=== PATIENT | female | born 1985 | race American Indian/Alaskan Native ===

== ENCOUNTER 2018-05-20 18:15 | Emergency (ER) | payer MEDICAID | END 2018-05-20 18:42 | disposition admitted as inpatient to this hospital (09) | LOC: ED 18:15 | DX: R10.9 Unspecified abdominal pain (principal); Z53.21 Procedure and treatment not carried out due to patient leaving prior to being seen by health care provider | CPT/HCPCS: 82962 ==

== ENCOUNTER 2018-05-20 18:24 | Day surgery (SDC) | payer MEDICAID ==
--- NOTE | 2018-05-20 18:49 | Anesthesia Day of Surgery ---
Anesthesia Day of Surgery - Day of Surgery Patient Examined: Yes Patient H&P Reviewed: Yes Patient is NPO: Yes
--- NOTE | 2018-05-20 18:50 | Anesthesia Consultation ---
Anesthesia Consult and Med Hx Date of service: 05/20/18 - Airway Anesthetic Teeth Evaluation: Good ROM Head & Neck: Adequate Mental/Hyoid Distance: Adequate Mallampati Class: Class III Intubation Access Assessment: Probably Good - Pre-Operative Health Status ASA Pre-Surgery Classification: ASA3, Emergency Proposed Anesthetic Plan: General - Pulmonary Hx Smoking: Yes (Hx) Hx Asthma: No COPD: No Hx Pneumonia: No Hx Sleep Apnea: No (Pt denies) - Cardiovascular System Hx Hypertension: Yes - Central Nervous System Hx Seizures: No Hx Psychiatric Problems: No - Gastrointestinal Hx Gastroesophageal Reflux Disease: Yes (Occasional) - Endocrine Hx Renal Disease: No Hx End Stage Renal Disease: No Hx Insulin Dependent Diabetes: Yes (FBS 235 @ 1845) Hx Hypothyroidism: No Hx Hyperthyroidism: No - Hematic Hx Anemia: No Hx Sickle Cell Disease: No - Other Systems Hx Alcohol Use: No Hx Obesity: Yes (morbid 5-11, 374#)
[2018-05-20] MEDS ORDERED: SUBLIMAZE IV PRN (18:51)
[2018-05-20] MEDS ORDERED: ZOFRAN IV PRN (18:51)
[2018-05-20] MEDS ORDERED: NACL 0.9% 1000 ML 1,000 ML ONE ×2 (18:55→19:43)
[2018-05-20] MEDS ORDERED: LACTATED RINGERS 1,000 ML IV SCH ×2 (19:00)
[2018-05-20] MEDS ORDERED: DIPRIVAN 10 MG/ML IV ONE ×2 (19:02→19:33)
[2018-05-20] MEDS ORDERED: DILAUDID ONE (19:02)
[2018-05-20] MEDS ORDERED: XYLOCAINE MPF 2% ONE (19:04)
--- NOTE | 2018-05-20 19:18 | Short Stay Summary ---
Short Stay Documentation Date of service: 05/20/18 - History Principal diagnosis: Incomplete H&P: obtained from office Past Medical History: diabetes, hypertension, other (morbid obesity) Past Surgical History: Social history: single - Allergies and Medications Current Medications: Allergies No Known Allergies Allergy (Verified 11/22/14 06:01) Home Medications Medication Instructions Recorded Confirmed Last Taken Type Ferrous Sulfate 1 tab PO DAILY 11/04/15 11/04/15 11/03/15 09:00 History 1 Insulin NPH Human Isophane 44 unit SQ QPM 11/04/15 11/04/15 11/03/15 21:00 History [Novolin N] 1 Insulin NPH Human Isophane 60 units SQ QAM 11/04/15 11/04/15 11/03/15 09:00 History [Novolin N] 1 Insulin Regular, Human Inj 30 units SQ QPM 11/04/15 11/04/15 11/03/15 21:00 History [NovoLIN R Inj] 1 Insulin Regular, Human Inj 32 units SQ QAM 11/04/15 11/04/15 11/03/15 09:00 History [NovoLIN R Inj] 1 Metformin HCl [Metformin] 1 tab PO BID 11/04/15 11/04/15 11/03/15 21:00 History Pnv with Ca,No.72/Iron/FA 1 tab PO DAILY 11/04/15 11/04/15 11/03/15 09:00 History [ Plus Tablet] 1 Ibuprofen [Motrin 800 MG tab] 800 mg PO Q6H PRN #30 tablet 11/07/15 Unknown Rx Insulin NPH, Human [NovoLIN N] 22 unit SUB-Q HS #7 units 11/07/15 Unknown Rx Insulin NPH, Human [NovoLIN N] 30 unit SUB-Q QAMDIAB #7 units 11/07/15 Unknown Rx Insulin Regular, Human [HumuLIN R] 15 units SUB-Q QHS #7 units 11/07/15 Unknown Rx Insulin Regular, Human [HumuLIN R] 16 units SUB-Q QAMDIAB #7 units 11/07/15 Unknown Rx oxyCODONE /ACETAMINOPHEN [Percocet 2 tab PO Q4H PRN #30 tablet 11/07/15 Unknown Rx 5/325 mg] Active Medications Fentanyl (Sublimaze) 50 mcg IV Q5MIN PRN PRN Reason: Pain , Severe (7-10) Lactated Ringer's (Lactated Ringers) 1,000 mls @ 100 mls/hr IV DIRECT NILAM Lactated Ringer's (Lactated Ringers) 1,000 mls @ 125 mls/hr IV DIRECT NILAM Ondansetron HCl (Zofran) 4 mg IV ONCE PRN PRN Reason: Nausea And Vomiting - Physical exam General appearance: mild distress HEENT: Atraumatic Lungs: Clear to auscultation, Normal air movement Breasts: deferred Heart: Regular rate, Normal S1, Normal S2 Gastrointestinal: normal, normoactive bowel sounds Female Genitourinary: normal Rectal Exam: deferred Extremities: No edema - Brief post op/procedure progress note Date of procedure: 05/20/18 Pre-op diagnosis: Missed Post-op diagnosis: same Procedure: Dilation and Evacuation Anesthesia: GETA Findings: enlarged uterus to 10 weeks with products of conception Surgeon: JAKE HARRISON Estimated blood loss: other (300) Pathology: list (products of conception) Specimen disposition: to lab Condition: stable - Hospital course Hospital course: unremarkable - Disposition Condition at discharge: Good Disposition: DC-01 TO HOME OR SELFCARE Short Stay Discharge Plan Activity: advance as tolerated Weight Bearing Status: Weight Bear as Tolerated Diet: regular Wound: open to air Follow up with: MARITA WAGONER MD [Primary Care Provider] - 7 Days JAKE HARRISON MD [Staff Physician] - 14 Days Prescriptions: Ibuprofen [Motrin 800 MG tab] 800 mg PO Q6H PRN #30 tablet PRN Reason: Pain, Mild (1-3) levoFLOXacin [Levaquin TAB] 500 mg PO QDAY #7 tablet oxyCODONE /ACETAMINOPHEN [Percocet 5/325 mg] 2 tab PO Q4H PRN #14 tablet PRN Reason: Pain, Moderate (4-6)
[2018-05-20] MEDS ORDERED: VERSED ONE (19:19)
[2018-05-20] MEDS ORDERED: ANCEF ONE (19:42)
[2018-05-20] MEDS ORDERED: ANCEF/STERILE WATER 2 GM/20 ML 2 GM/20 ML SYRINGE IV NR (20:00)
[2018-05-20] MEDS ORDERED: TORADOL ONE (20:04)
[2018-05-20] MEDS ORDERED: HumuLIN R IV ONE (20:23)
[2018-05-20 21:05] VITALS: BP 123/81
--- NOTE | 2018-05-21 07:44 | Post Anesthesia Evaluation ---
- Post Anesthesia Evaluation Patient Participated: Yes Airway Patent: Yes Stable Respiratory Function: Yes Nausea/Vomiting: No Temp > 96.8F: Yes Pain Manageable: Yes Adequeate Hydration: Yes Anesthesia Complications: No Block Receding Appropriately: Not Applicable Patient on Ventilator: No
--- NOTE | 2018-05-28 11:29 | Operative Report ---
Operative Report Operative Report: Preoperative diagnoses: Missed at 7 weeks Postoperative diagnosis: Same Procedure: D and E Surgeon: Jaja Thomas M.D. Anesthesia: MAC EBL: Minimal Urine output: 100 mL clear Complications: None Specimens: Products of conception Procedure: Patient was taken to the OR with IV running and in place. She will probably identified as herself. She was given adequate anesthesia. She was then placed in the dorsal lithotomy position and prepped and draped in normal sterile fashion. Attention was turned to the patient's vagina. Her bladder was then drained of approximately 100 mL of clear yellow urine. A bivalve speculum was placed the patient's vagina. Cervix was visualized and grasped with a single-tooth tenaculum. The cervix was then gently dilated up to approximately 29 mm. Following this, a #7 suction curette was inserted into the patient's uterus at the level of the fundus. It was then attached to the suction machine and the curettage was performed removing products of conception. At one point the curet was removed and a large banjo curet was introduced into the uterus to further retrieve any additional products. Following this the suction curette was reintroduced and more tissue was obtained. It was excellent hemostasis noted at the end of this portion of the procedure. At this point all instruments were removed from the patient's vagina. She was then awakened and taken to recovery in stable condition. She tolerated the procedure well
== END 2018-05-20 21:30 | disposition home or self-care (01) ==
LOC: OR 18:24
PROVIDERS: ATTEND Obstetrics & Gynecology
DX: O02.1 Missed abortion (principal); E11.9 Type 2 diabetes mellitus without complications; I10 Essential (primary) hypertension; E66.01 Morbid (severe) obesity due to excess calories; Z79.899 Other long term (current) drug therapy; Z79.4 Long term (current) use of insulin; Z87.891 Personal history of nicotine dependence; Z79.84 Long term (current) use of oral hypoglycemic drugs; Z68.43 Body mass index [BMI] 50.0-59.9, adult; Z98.891 History of uterine scar from previous surgery; Z83.3 Family history of diabetes mellitus
CPT/HCPCS: 59820; 88305; J0690; J1170; J1885; J2250; J2704; J7030; J1815

== ENCOUNTER 2018-07-09 16:43 | Inpatient (IN) | payer MEDICAID ==
[2018-07-09] MEDS ORDERED: PROVENTIL IH ONE (17:02)
[2018-07-09] MEDS ORDERED: ATROVENT IH ONE (17:02)
--- NOTE | 2018-07-09 17:02 | Emergency Department Report ---
Blank Doc - Documentation Documentation: This is a 32-year-old female that presents with SOB. Denies any CP. Stated has a dry cough. This initial assessment/diagnostic orders/clinical plan/treatment(s) is/are subject to change based on patient's health status, clinical progression and re- assessment by fellow clinical providers in the ED. Further treatment and workup at subsequent clinical providers discretion. Patient/guardians urged not to elope from the ED as their condition may be serious if not clinically assessed and managed. Initial orders include: 1- Patient sent to [facility] for further evaluation and treatment 2- CXR 3- breathing treatment/steroids
[2018-07-09] MEDS ORDERED: NACL 0.9% 1000 ML IV ONE (17:25)
[2018-07-09] MEDS ORDERED: NORMODYNE IV ONE (17:25)
[2018-07-09 18:21] LABS: Basophils # (Auto) 0.1 K/mm3 (0.0-0.1); Basophils % (Auto) 0.7 % (0.0-1.8); Eosinophils # (Auto) 0.3 K/mm3 (0.0-0.4); Eosinophils % (Auto) 3.8 % (0.0-4.3); Hematocrit 38.6 % (30.3-42.9); Hemoglobin 12.6 gm/dl (10.1-14.3); Lymphocytes # (Auto) 2.6 K/mm3 (1.2-5.4); Lymphocytes % (Auto) 34.2 % (13.4-35.0); Mean Corpuscular HGB Conc 33 % (30-34); Mean Corpuscular Volume 84 fl (79-97); Monocytes # (Auto) 0.4 K/mm3 (0.0-0.8); Monocytes % (Auto) 5.4 % (0.0-7.3); Platelet Count 268 K/mm3 (140-440); Red Blood Count 4.61 M/mm3 (3.65-5.03); Red Cell Distribution Width 14.5 % (13.2-15.2)
[2018-07-09] MEDS: ZITHROMAX 500 MG in NACL 0.9% 250ML 250 ML IV SCH (18:30)
[2018-07-09 18:41] LABS: Alanine Aminotransferase 10 units/L (7-56); Albumin 3.6 g/dL (3.9-5); BUN/Creatinine Ratio 11; Blood Urea Nitrogen 8 mg/dL (7-17); Hemolysis Index 3
[2018-07-09] MEDS ORDERED: ZOFRAN IV ONE (18:54)
[2018-07-09] MEDS ORDERED: ZOFRAN ONE (18:54)
[2018-07-09] MEDS ORDERED: NACL 0.9% 1000 ML 1,000 ML IV ONE (19:28)
--- NOTE | 2018-07-09 19:31 | XRay Report ---
PROCEDURE: XR CHEST 1V AP TECHNIQUE: Chest radiograph , single frontal view. HISTORY: cough wheeze COMPARISONS: None . FINDINGS: Heart: Normal. Mediastinum/Vessels: Normal. Lungs/Pleural space: Normal. Bony thorax: No acute osseous abnormality. Life support devices: None. IMPRESSION: No acute cardiopulmonary abnormality. This document is electronically signed by Smita Valladares MD., July 09 2018 07:29:11 PM ET
[2018-07-09] MEDS ORDERED: HumuLIN R IV ONE (19:36)
--- NOTE | 2018-07-09 19:39 | Emergency Department Report ---
<ELISEO LOPEZ - Last Filed: 07/09/18 19:52> ED Shortness of Breath HPI - General Chief Complaint: Dyspnea/Respdistress Stated Complaint: SERINA/WHEEZING Time Seen by Provider: 07/09/18 17:00 Source: patient Mode of arrival: Ambulatory Limitations: No Limitations - History of Present Illness Initial Comments: Patient is a 32-year-old female with past medical history of diabetes and hypertension who is presenting with cough congestion and wheeze for the last 2-3 days. Patient states she has no history of asthma but has asthma and her family. Patient states she has had a cough productive of clear yellow sputum. Patient denies any fever nausea vomiting or diarrhea. Patient's has no history of smoking. - Related Data Home Medications Medication Instructions Recorded Confirmed Last Taken Ferrous Sulfate 1 tab PO DAILY 11/04/15 11/04/15 11/03/15 09:00 1 Insulin NPH Human Isophane 44 unit SQ QPM 11/04/15 11/04/15 11/03/15 21:00 [Novolin N] 1 Insulin NPH Human Isophane 60 units SQ QAM 11/04/15 11/04/15 11/03/15 09:00 [Novolin N] 1 Insulin Regular, Human Inj 30 units SQ QPM 11/04/15 11/04/15 11/03/15 21:00 [NovoLIN R Inj] 1 Insulin Regular, Human Inj 32 units SQ QAM 11/04/15 11/04/15 11/03/15 09:00 [NovoLIN R Inj] 1 Metformin HCl [Metformin] 1 tab PO BID 11/04/15 11/04/15 11/03/15 21:00 Pnv with Ca,No.72/Iron/FA 1 tab PO DAILY 11/04/15 11/04/15 11/03/15 09:00 [ Plus Tablet] 1 Previous Rx's Medication Instructions Recorded Last Taken Type Insulin NPH, Human [NovoLIN N] 22 unit SUB-Q HS #7 units 11/07/15 Unknown Rx Insulin NPH, Human [NovoLIN N] 30 unit SUB-Q QAMDIAB #7 units 11/07/15 Unknown Rx Insulin Regular, Human [HumuLIN R] 15 units SUB-Q QHS #7 units 11/07/15 Unknown Rx Insulin Regular, Human [HumuLIN R] 16 units SUB-Q QAMDIAB #7 units 11/07/15 Unknown Rx Ibuprofen [Motrin 800 MG tab] 800 mg PO Q6H PRN #30 tablet 05/20/18 Unknown Rx levoFLOXacin [Levaquin TAB] 500 mg PO QDAY #7 tablet 05/20/18 Unknown Rx oxyCODONE /ACETAMINOPHEN [Percocet 2 tab PO Q4H PRN #14 tablet 05/20/18 Unknown Rx 5/325 mg] Allergies Allergy/AdvReac Type Severity Reaction Status Date / Time No Known Allergies Allergy Verified 11/22/14 06:01 ED Review of Systems Comment: All other systems reviewed and negative ED Past Medical Hx - Past Medical History Previous Medical History?: Yes Hx Hypertension: Yes Hx Congestive Heart Failure: No Hx Diabetes: Yes (Type 2) Hx Deep Vein Thrombosis: No Hx Renal Disease: No Hx Sickle Cell Disease: No Hx Seizures: No Hx Asthma: No Hx COPD: No Hx HIV: No - Surgical History Past Surgical History?: No - Social History Smoking Status: Never Smoker Substance Use Type: None - Medications Home Medications: Home Medications Medication Instructions Recorded Confirmed Last Taken Type Ferrous Sulfate 1 tab PO DAILY 11/04/15 11/04/15 11/03/15 09:00 History 1 Insulin NPH Human Isophane 44 unit SQ QPM 11/04/15 11/04/15 11/03/15 21:00 History [Novolin N] 1 Insulin NPH Human Isophane 60 units SQ QAM 11/04/15 11/04/15 11/03/15 09:00 History [Novolin N] 1 Insulin Regular, Human Inj 30 units SQ QPM 11/04/15 11/04/15 11/03/15 21:00 History [NovoLIN R Inj] 1 Insulin Regular, Human Inj 32 units SQ QAM 11/04/15 11/04/15 11/03/15 09:00 History [NovoLIN R Inj] 1 Metformin HCl [Metformin] 1 tab PO BID 11/04/15 11/04/15 11/03/15 21:00 History Pnv with Ca,No.72/Iron/FA 1 tab PO DAILY 11/04/15 11/04/15 11/03/15 09:00 History [ Plus Tablet] 1 Insulin NPH, Human [NovoLIN N] 22 unit SUB-Q HS #7 units 11/07/15 Unknown Rx Insulin NPH, Human [NovoLIN N] 30 unit SUB-Q QAMDIAB #7 units 11/07/15 Unknown Rx Insulin Regular, Human [HumuLIN R] 15 units SUB-Q QHS #7 units 11/07/15 Unknown Rx Insulin Regular, Human [HumuLIN R] 16 units SUB-Q QAMDIAB #7 units 11/07/15 Unknown Rx Ibuprofen [Motrin 800 MG tab] 800 mg PO Q6H PRN #30 tablet 05/20/18 Unknown Rx levoFLOXacin [Levaquin TAB] 500 mg PO QDAY #7 tablet 05/20/18 Unknown Rx oxyCODONE /ACETAMINOPHEN [Percocet 2 tab PO Q4H PRN #14 tablet 05/20/18 Unknown Rx 5/325 mg] ED Physical Exam - General Limitations: No Limitations General appearance: alert, in no apparent distress - Head Head exam: Present: atraumatic, normocephalic - Eye Eye exam: Present: normal appearance, PERRL, EOMI - ENT ENT exam: Present: mucous membranes moist - Neck Neck exam: Present: normal inspection - Respiratory Respiratory exam: Present: respiratory distress, wheezes, decreased breath sounds. Absent: normal lung sounds bilaterally, rales, rhonchi, stridor - Cardiovascular Cardiovascular Exam: Present: normal rhythm, tachycardia. Absent: systolic murmur, diastolic murmur, rubs, gallop - GI/Abdominal GI/Abdominal exam: Present: soft, normal bowel sounds. Absent: distended, tenderness, guarding, rebound - Extremities Exam Extremities exam: Present: normal inspection, full ROM - Back Exam Back exam: Present: normal inspection - Neurological Exam Neurological exam: Present: alert, oriented X3 - Psychiatric Psychiatric exam: Present: normal affect, normal mood - Skin Skin exam: Present: warm, dry, intact, normal color. Absent: rash ED Course - Reevaluation(s) Reevaluation #1: 07/09/18 19:37 Patient is a 32-year-old female presenting with cough cold congestion and wheeze. Patient was given hour-long breathing treatment. Stairs up and held s econdary to her high her glycemia. Patient is finishing a breathing treatment at this time. Patient's blood pressure on arrival was 196/127 with a heart rate of 119. Patient received labetalol was has began to decrease her blood pressure to a safer range. Patient's patient's d-dimer was elevated with a history of having no prior respiratory issues CT of the chest to rule out pulmonary embolus has been ordered. ED Medical Decision Making - Lab Data Result diagrams: 07/09/18 17:49 07/09/18 17:49 Lab Results 07/09/18 07/09/18 07/09/18 Range/Units 17:49 17:49 17:49 WBC 7.6 (4.5-11.0) K/mm3 RBC 4.61 (3.65-5.03) M/mm3 Hgb 12.6 (10.1-14.3) gm/dl Hct 38.6 (30.3-42.9) % MCV 84 (79-97) fl MCH 27 L (28-32) pg MCHC 33 (30-34) % RDW 14.5 (13.2-15.2) % Plt Count 268 (140-440) K/mm3 Lymph % (Auto) 34.2 (13.4-35.0) % Lares % (Auto) 5.4 (0.0-7.3) % Eos % (Auto) 3.8 (0.0-4.3) % Baso % (Auto) 0.7 (0.0-1.8) % Lymph # 2.6 (1.2-5.4) K/mm3 Lares # 0.4 (0.0-0.8) K/mm3 Eos # 0.3 (0.0-0.4) K/mm3 Baso # 0.1 (0.0-0.1) K/mm3 Seg Neutrophils % 55.9 (40.0-70.0) % Seg Neutrophils # 4.2 (1.8-7.7) K/mm3 D-Dimer 239.15 H (0-234) ng/mlDDU Sodium 133 L (137-145) mmol/L Potassium 4.1 (3.6-5.0) mmol/L Chloride 96.2 L (98-107) mmol/L Carbon Dioxide 23 (22-30) mmol/L Anion Gap 18 mmol/L BUN 8 (7-17) mg/dL Creatinine 0.7 (0.7-1.2) mg/dL Estimated GFR > 60 ml/min BUN/Creatinine Ratio 11 % Glucose 451 H (65-100) mg/dL Lactic Acid (0.7-2.0) mmol/L Calcium 9.0 (8.4-10.2) mg/dL Total Bilirubin 0.50 (0.1-1.2) mg/dL AST 10 (5-40) units/L ALT 10 (7-56) units/L Alkaline Phosphatase 69 (35-129) units/L NT-Pro-B Natriuret Pep (0-450) pg/mL Total Protein 6.7 (6.3-8.2) g/dL Albumin 3.6 L (3.9-5) g/dL Albumin/Globulin Ratio 1.2 % HCG, Qual (Negative) 07/09/18 07/09/18 07/09/18 Range/Units 17:49 17:49 17:54 WBC (4.5-11.0) K/mm3 RBC (3.65-5.03) M/mm3 Hgb (10.1-14.3) gm/dl Hct (30.3-42.9) % MCV (79-97) fl MCH (28-32) pg MCHC (30-34) % RDW (13.2-15.2) % Plt Count (140-440) K/mm3 Lymph % (Auto) (13.4-35.0) % Lares % (Auto) (0.0-7.3) % Eos % (Auto) (0.0-4.3) % Baso % (Auto) (0.0-1.8) % Lymph # (1.2-5.4) K/mm3 Lares # (0.0-0.8) K/mm3 Eos # (0.0-0.4) K/mm3 Baso # (0.0-0.1) K/mm3 Seg Neutrophils % (40.0-70.0) % Seg Neutrophils # (1.8-7.7) K/mm3 D-Dimer (0-234) ng/mlDDU Sodium (137-145) mmol/L Potassium (3.6-5.0) mmol/L Chloride (98-107) mmol/L Carbon Dioxide (22-30) mmol/L Anion Gap mmol/L BUN (7-17) mg/dL Creatinine (0.7-1.2) mg/dL Estimated GFR ml/min BUN/Creatinine Ratio % Glucose (65-100) mg/dL Lactic Acid 3.20 H* (0.7-2.0) mmol/L Calcium (8.4-10.2) mg/dL Total Bilirubin (0.1-1.2) mg/dL AST (5-40) units/L ALT (7-56) units/L Alkaline Phosphatase (35-129) units/L NT-Pro-B Natriuret Pep 247.9 (0-450) pg/mL Total Protein (6.3-8.2) g/dL Albumin (3.9-5) g/dL Albumin/Globulin Ratio % HCG, Qual Negative (Negative) - EKG Data -: EKG Interpreted by Mt - EKG Data 07/09/18 19:52 EKG shows sinus tachycardia of 116. Axes normal intervals and normal ST segment elevations or depressions. Time of interpretation 1707 - Radiology Data [facility] [address] [place] [address] XRay Report Signed Patient: NIKKI SHERMAN MR#: [id number] : 1985 Acct:[id number] Age/Sex: 32 / F ADM Date: 07/09/18 Loc: ED Attending Dr: Ordering Physician: ELISEO LOPEZ MD Date of Service: 07/09/18 Procedure(s): XR chest 1V ap Accession Number(s): [id number] cc: ELISEO LOPEZ MD Fluoro Time In Minutes: PROCEDURE: XR CHEST 1V AP TECHNIQUE: Chest radiograph , single frontal view. HISTORY: cough wheeze COMPARISONS: None . FINDINGS: Heart: Normal. Mediastinum/Vessels: Normal. Lungs/Pleural space: Normal. Bony thorax: No acute osseous abnormality. Life support devices: None. IMPRESSION: No acute cardiopulmonary abnormality. This document is electronically signed by Smita Valladares MD., July 09 2018 07:29:11 PM ET Transcribed By: [facility] Dictated By: SMITA VALLADARES MD Electronically Authenticated By: SMITA VALLADARES MD Signed Date/Time: 07/09/181930 DD/ 12 TD/TT: 07/09/181912 ED Disposition Clinical Impression: Insulin dependent diabetes mellitus, Morbid obesity, Bilateral pneumonia, Wheezing Disposition: - OP ADMIT IP TO THIS HOSP Condition: Stable <RADHA LOPEZ - Last Filed: 07/09/18 23:22> ED Review of Systems ROS: Stated complaint: SERINA/WHEEZING Other details as noted in HPI ED Past Medical Hx - Social History Smoking Status: Current Some Day Smoker ED Course Vital Signs 07/09/18 07/09/18 07/09/18 17:00 17:46 18:15 Temperature 97.7 F Pulse Rate 119 H 119 H Pulse Rate [ 114 H Anterior Bilateral Throughout] Respiratory 28 H 15 Rate Respiratory 32 H Rate [Anterior Bilateral Throughout] Blood Pressure 196/127 190/124 Blood Pressure [Right] O2 Sat by Pulse 97 97 Oximetry 07/09/18 07/09/18 07/09/18 18:26 18:28 19:00 Temperature Pulse Rate 102 H 108 H Pulse Rate [ Anterior Bilateral Throughout] Respiratory 27 H 27 H 20 Rate Respiratory Rate [Anterior Bilateral Throughout] Blood Pressure 146/95 Blood Pressure 198/125 159/96 [Right] O2 Sat by Pulse 96 96 95 Oximetry 07/09/18 07/09/18 07/09/18 19:16 19:30 19:46 Temperature Pulse Rate 107 H 108 H 109 H Pulse Rate [ Anterior Bilateral Throughout] Respiratory 14 31 H 23 Rate Respiratory Rate [Anterior Bilateral Throughout] Blood Pressure 146/95 146/95 146/95 Blood Pressure [Right] O2 Sat by Pulse 96 91 89 Oximetry 07/09/18 07/09/18 07/09/18 20:00 20:34 20:46 Temperature Pulse Rate 109 H 109 H 106 H Pulse Rate [ Anterior Bilateral Throughout] Respiratory 31 H 20 25 H Rate Respiratory Rate [Anterior Bilateral Throughout] Blood Pressure 144/86 Blood Pressure [Right] O2 Sat by Pulse 91 88 96 Oximetry 07/09/18 07/09/18 07/09/18 21:00 21:16 21:30 Temperature Pulse Rate 109 H 110 H 110 H Pulse Rate [ Anterior Bilateral Throughout] Respiratory 24 42 H 20 Rate Respiratory Rate [Anterior Bilateral Throughout] Blood Pressure Blood Pressure [Right] O2 Sat by Pulse 80 L 97 95 Oximetry 07/09/18 07/09/18 21:45 22:00 Temperature Pulse Rate 110 H 111 H Pulse Rate [ Anterior Bilateral Throughout] Respiratory 21 12 Rate Respiratory Rate [Anterior Bilateral Throughout] Blood Pressure Blood Pressure [Right] O2 Sat by Pulse 96 Oximetry ED Medical Decision Making - Lab Data Result diagrams: 07/09/18 17:49 07/09/18 17:49 - Radiology Data Radiology results: report reviewed PROCEDURE: CT ANGIO CHEST TECHNIQUE: Computerized tomographic angiography of the chest was performed after the IV injection of iodinated nonionic contrast including image processing. The image data was postprocessed using 2-dimensional multiplanar reformatted (MPR) and 3-dimensional (MIP and/or volume rendered) techniques. Automated exposure control, adjustment of mA and/or kV according to patient size, or iterative reconstruction dose optimization techniques were utilized. CT DOSE LENGTH PRODUCT: 893.5 mGycm HISTORY: acute resp distress with elevated ddimer COMPARISONS: None . FINDINGS: There is suboptimal opacification of pulmonary arteries and their branches. However there are no obvious pulmonary arterial filling defects. Aorta is of normal caliber without evidence of dissection or aneurysm formation. A subcarinal lymph node is noted measuring 2.3 cm in short axis. Thyroid demonstrates normal size and density as visualized. Cardiac size is within normal limits. Subcentimeter hilar lymph nodes are identified. Diffuse alveolar type opacification is identified involving majority portions of bilateral lower lobes with mild degree involvement of the remaining lobes. There are no pleural effusions. Vertebral height is normal. There is evidence of spinal canal stenosis at T7-8 and T9-10 secondary to what appears to be disc bulge and annular calcification IMPRESSION: Diffuse opacification of bilateral lower lobes may represent acute pulmonary edema versus bilateral pneumonia. Subcarinal lymphadenopathy Spinal canal stenosis at T7-8 and T9-10 No obvious evidence of pulmonary embolism. - Medical Decision Making ct shows b/l pneumonia. Pulmonary edema possibly less likely given normal BNP level and lack of history of heart failure As per Dr. Lopez patient presented with wheezing. Patient states that she feels better after neb treatment. 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 PT has a curb 65 score of 0 and therefore is a low risk for 30 day mortality and outpatient treatment can be considered. Initial discharge considered however, patient continues to be short of breath on ambulation attempt despite ED treatment will be admitted to the hospital for further management for continued dyspnea Critical care attestation.: If time is entered above; I have spent that time in minutes in the direct care of this critically ill patient, excluding procedure time. ED Disposition Is pt being admited?: Yes Time of Disposition: 23:19 (DR [facility])
[2018-07-09] MEDS ORDERED: ROCEPHIN/NS 2 GM/100 ML 2 GM/100 ML BAG IV SCH (20:00)
--- NOTE | 2018-07-09 21:02 | Cat Scan Report ---
PROCEDURE: CT ANGIO CHEST TECHNIQUE: Computerized tomographic angiography of the chest was performed after the IV injection of iodinated nonionic contrast including image processing. The image data was postprocessed using 2-di mensional multiplanar reformatted (MPR) and 3-dimensional (MIP and/or volume rendered) techniques. Au tomated exposure control, adjustment of mA and/or kV according to patient size, or iterative reconstr uction dose optimization techniques were utilized. CT DOSE LENGTH PRODUCT: 893.5 mGycm HISTORY: acute resp distress with elevated ddimer COMPARISONS: None . FINDINGS: There is suboptimal opacification of pulmonary arteries and their branches. However there are no obvi ous pulmonary arterial filling defects. Aorta is of normal caliber without evidence of dissection or aneurysm formation. A subcarinal lymph node is noted measuring 2.3 cm in short axis. Thyroid demonstr ates normal size and density as visualized. Cardiac size is within normal limits. Subcentimeter hilar lymph nodes are identified. Diffuse alveolar type opacification is identified involving majority por tions of bilateral lower lobes with mild degree involvement of the remaining lobes. There are no pleu ral effusions. Vertebral height is normal. There is evidence of spinal canal stenosis at T7-8 and T9- 10 secondary to what appears to be disc bulge and annular calcification IMPRESSION: Diffuse opacification of bilateral lower lobes may represent acute pulmonary edema versus bilateral pneumonia. Subcarinal lymphadenopathy Spinal canal stenosis at T7-8 and T9-10 No obvious evidence of pulmonary embolism. This document is electronically signed by Martin Snider MD., July 09 2018 09:00:06 PM ET
[2018-07-09] MEDS ORDERED: SOLU-Medrol IV ONE (21:07)
--- NOTE | 2018-07-09 23:39 | History and Physical Report ---
History of Present Illness Date of examination: 07/09/18 History of present illness: 32-year-old woman with a history of hypertension, diabetes comes emergency room complaining of nonproductive cough, shortness of breath, wheezing since Saturday Review of systems Constitutional: no weight loss, chills, fever Ears, eyes, nose, mouth and throat: no nasal congestion, no nasal discharge, no sinus pressure, no vision change, no red eye. Neck: No neck pain or rigidity. Cardiovascular: no palpitations, chest pain Respiratory: + cough, +shortness of breath Gastrointestinal: no hematochezia, abdominal pain Genitourinary : no frequency , no hematuria Musculoskeletal: no joint swelling or muscle ache Integumentary: no rash, no pruritis Neurological: no parathesias, no focal weakness Endocrine: no cold or heat intolerance, no polyuria or polydipsia Hematologic/Lymphatic: no easy bruising, no easy bleeding, no gland swelling Allergic/Immunologic: no urticaria, no angioedema. PAST MEDICAL HISTORY:hypertension, diabetes PAST SURGICAL HISTORY: None SOCIAL HISTORY: + alcohol, drugs, +tobacco FAMILY HISTORY: Hypertension Medications and Allergies Allergies Allergy/AdvReac Type Severity Reaction Status Date / Time No Known Allergies Allergy Verified 11/22/14 06:01 Home Medications Medication Instructions Recorded Confirmed Last Taken Type Ferrous Sulfate 1 tab PO DAILY 11/04/15 11/04/15 11/03/15 09:00 History 1 Insulin NPH Human Isophane 44 unit SQ QPM 11/04/15 11/04/15 11/03/15 21:00 History [Novolin N] 1 Insulin NPH Human Isophane 60 units SQ QAM 11/04/15 11/04/15 11/03/15 09:00 History [Novolin N] 1 Insulin Regular, Human Inj 30 units SQ QPM 11/04/15 11/04/15 11/03/15 21:00 History [NovoLIN R Inj] 1 Insulin Regular, Human Inj 32 units SQ QAM 11/04/15 11/04/15 11/03/15 09:00 History [NovoLIN R Inj] 1 Metformin HCl [Metformin] 1 tab PO BID 11/04/15 11/04/15 11/03/15 21:00 History Pnv with Ca,No.72/Iron/FA 1 tab PO DAILY 11/04/15 11/04/15 11/03/15 09:00 History [ Plus Tablet] 1 Insulin NPH, Human [NovoLIN N] 22 unit SUB-Q HS #7 units 11/07/15 Unknown Rx Insulin NPH, Human [NovoLIN N] 30 unit SUB-Q QAMDIAB #7 units 11/07/15 Unknown Rx Insulin Regular, Human [HumuLIN R] 15 units SUB-Q QHS #7 units 11/07/15 Unknown Rx Insulin Regular, Human [HumuLIN R] 16 units SUB-Q QAMDIAB #7 units 11/07/15 Unknown Rx Ibuprofen [Motrin 800 MG tab] 800 mg PO Q6H PRN #30 tablet 05/20/18 Unknown Rx levoFLOXacin [Levaquin TAB] 500 mg PO QDAY #7 tablet 05/20/18 Unknown Rx oxyCODONE /ACETAMINOPHEN [Percocet 2 tab PO Q4H PRN #14 tablet 05/20/18 Unknown Rx 5/325 mg] Active Meds: Active Medications Azithromycin 500 mg/ Sodium (Chloride) 250 mls @ 250 mls/hr IV Q24HR NILAM; P rotocol Last Admin: 07/09/18 18:30 Dose: 250 mls/hr Documented by: Ceftriaxone Sodium (Rocephin/Ns 2 Gm/100 Ml) 2 gm in 100 mls @ 200 mls/hr IV Q24HR NILAM; Protocol Last Admin: 07/09/18 20:02 Dose: 200 mls/hr Documented by: Exam - Physical Exam Narrative exam: General Apperance: The patient lying in bed, breathing comfortable HEENT: Normocephalic, atraumatic. Pupils equally round and reactive to light, EOMI, no sclericterus or JVD or thyromegaly or nodule. , no carotid bruit, mucous membranes moist, no exudate or erythema Heart: S1-S2, regular is rhythm Lungs: wheezing, crackles bilaterally, breathing comfortable Abdomen: Positive bowel sounds, soft, nontender, nondistended, no organomegaly Extremities: No edema cyanosis clubbing Skin: no rash, nodule, warm and dry Neuro: cranial nerves 2-12 intact, speech is fluent, motor/sensory intact - Constitutional Vitals: Temp Pulse Resp BP Pulse Ox 97.7 F 111 H 12 144/86 96 07/09/18 17:00 07/09/18 22:00 07/09/18 22:00 07/09/18 20:00 07/09/18 21:45 Results - Labs CBC & Chem 7: 07/09/18 17:49 07/09/18 17:49 Labs: Abnormal lab results 07/09/18 07/09/18 07/09/18 Range/Units 17:49 17:49 17:49 MCH 27 L (28-32) pg D-Dimer 239.15 H (0-234) ng/mlDDU Sodium 133 L (137-145) mmol/L Chloride 96.2 L (98-107) mmol/L Glucose 451 H (65-100) mg/dL Lactic Acid (0.7-2.0) mmol/L Albumin 3.6 L (3.9-5) g/dL 07/09/18 07/09/18 07/09/18 Range/Units 17:49 19:51 21:22 MCH (28-32) pg D-Dimer (0-234) ng/mlDDU Sodium (137-145) mmol/L Chloride (98-107) mmol/L Glucose (65-100) mg/dL Lactic Acid 3.20 H* 2.20 H* 2.60 H* (0.7-2.0) mmol/L Albumin (3.9-5) g/dL - Imaging and Cardiology Chest x-ray: report reviewed CT scan - chest: report reviewed Assessment and Plan Assessment Community-acquired pneumonia hypertension diabetes Plan Admit to medicine Start IV antibiotic, follow cultures start IV steroids, nebulizer treatment, DVT prophylaxis Check fingersticks and initiate insulin sliding scale
[2018-07-10] MEDS ORDERED: NORMODYNE IV ONE ×2 (00:36)
[2018-07-10] MEDS ORDERED: SODIUM CHLORIDE FLUSH SYRINGE 10 ML IV PRN (03:42)
[2018-07-10] MEDS ORDERED: D50W (25GM) Syringe IV PRN (03:42)
[2018-07-10] MEDS ORDERED: ZOFRAN IV PRN (03:42)
[2018-07-10] MEDS: TYLENOL PO PRN (04:04)
[2018-07-10 04:59] LABS: Basophils % (Auto) 0.5 % (0.0-1.8); Eosinophils # (Auto) 0.3 K/mm3 (0.0-0.4); Eosinophils % (Auto) 3.2 % (0.0-4.3); Hematocrit 36.7 % (30.3-42.9); Lymphocytes # (Auto) 3.3 K/mm3 (1.2-5.4); Mean Corpuscular HGB Conc 33 % (30-34); Mean Corpuscular Volume 84 fl (79-97); Monocytes # (Auto) 0.4 K/mm3 (0.0-0.8); Monocytes % (Auto) 5.2 % (0.0-7.3); Platelet Count 279 K/mm3 (140-440); Red Blood Count 4.35 M/mm3 (3.65-5.03); Red Cell Distribution Width 14.5 % (13.2-15.2)
[2018-07-10 05:03] LABS: BUN/Creatinine Ratio 11; Blood Urea Nitrogen 9 mg/dL (7-17); Calcium 8.7 mg/dL (8.4-10.2); Hemolysis Index 9
[2018-07-10] MEDS: SOLU-Medrol IV SCH ×3 (05:33→21:28)
[2018-07-10] MEDS: NORVASC PO SCH (08:43)
[2018-07-10] MEDS: HCTZ PO SCH (08:44)
[2018-07-10] MEDS: HumaLOG SUB-Q SCH ×4 (08:44→22:44)
[2018-07-10] MEDS: ROBITUSSIN AC PO PRN ×2 (08:45→22:43)
[2018-07-10] MEDS: NORMODYNE PO SCH ×2 (08:49→21:27)
[2018-07-10] MEDS: DUONEB *Not for PRN Use IH SCH ×3 (09:05→21:39)
[2018-07-10 09:38] LABS: BUN/Creatinine Ratio 13; Blood Urea Nitrogen 9 mg/dL (7-17); Calcium 8.9 mg/dL (8.4-10.2); Hemolysis Index 8
[2018-07-10] MEDS: ROCEPHIN/NS 1 GM/50 ML 1 GM/50 ML BAG IV SCH (11:25)
[2018-07-10] MEDS: SODIUM CHLORIDE FLUSH SYRINGE 10 ML IV SCH ×2 (11:26→21:28)
[2018-07-10] MEDS: LOVENOX SUB-Q SCH (11:39)
[2018-07-10] MEDS: ZITHROMAX 500 MG in NACL 0.9% 250ML 250 ML IV SCH (11:39)
--- NOTE | 2018-07-10 14:27 | Progress Note ---
Assessment and Plan Assessment and plan: Acute respiratory failure likely due to COPD versus Bilateral pneumonia - Patient is on IV antibiotic - Oxygen support, breathing treatment, IV Solu-Medrol, BiPAP as needed, cough syrup Sepsis, lactic acidosis - Continue treatment as above - follow blood cultures Hypertensive urgency - Patient was noncompliant with her blood pressure medication - Hypertension on the anterior medications and adjust as needed Diabetes mellitus with hyperglycemia - The patient on 35 units of 70/30 2 times a day, sliding scale insulin, Accu- Chek, ADA diet adjust insulin as needed Morbid obesity - Patient was counseled about weight loss, diet, exercise DVT prophylaxis - On Lovenox History Interval history: Patient was seen and evaluated this morning, patient was complaining shortness of breath and cough. Hospitalist Physical - Physical exam Narrative exam: Not in cardiopulmonary distress. The patient appeared well nourished and normally developed. Vital signs as documented. Head exam is unremarkable. No scleral icterus . Neck is without jugular venous distension, thyromegaly, or carotid bruits. Lungs are clear to auscultation. Cardiac exam reveals regular rate and Rhythm. Abdominal exam reveals normal bowel sounds, no masses, no organomegaly and no aortic enlargement. Extremities are nonedematous and both femoral and pedal pulses are normal. 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 No focal weakness. - Constitutional Vitals: Temp Pulse Resp BP Pulse Ox 97.9 F 110 H 20 151/102 93 07/10/18 13:39 07/10/18 13:49 07/10/18 13:49 07/10/18 13:39 07/10/18 13:39 Results - Labs CBC & Chem 7: 07/10/18 04:22 07/10/18 08:28 Labs: Laboratory Last Values WBC 8.1 K/mm3 (4.5-11.0) 07/10/18 04:22 RBC 4.35 M/mm3 (3.65-5.03) 07/10/18 04:22 Hgb 12.0 gm/dl (10.1-14.3) 07/10/18 04:22 Hct 36.7 % (30.3-42.9) 07/10/18 04:22 MCV 84 fl (79-97) 07/10/18 04:22 MCH 28 pg (28-32) 07/10/18 04:22 MCHC 33 % (30-34) 07/10/18 04: RDW 14.5 % (13.2-15.2) 07/10/18 04:22 Plt Count 279 K/mm3 (140-440) 07/10/18 04:22 Lymph % (Auto) 40.0 % (13.4-35.0) H 07/10/18 04:22 [place] % (Auto) 5.2 % (0.0-7.3) 07/10/18 04:22 Eos % (Auto) 3.2 % (0.0-4.3) 07/10/18 04:22 Baso % (Auto) 0.5 % (0.0-1.8) 07/10/18 04:22 Lymph # 3.3 K/mm3 (1.2-5.4) 07/10/18 04:22 [place] # 0.4 K/mm3 (0.0-0.8) 07/10/18 04:22 Eos # 0.3 K/mm3 (0.0-0.4) 07/10/18 04:22 Baso # 0.0 K/mm3 (0.0-0.1) 07/10/18 04:22 Seg Neutrophils % 51.1 % (40.0-70.0) 07/10/18 04:22 Seg Neutrophils # 4.2 K/mm3 (1.8-7.7) 07/10/18 04:22 D-Dimer 239.15 ng/mlDDU (0-234) H 07/09/18 17:49 Sodium 130 mmol/L (137-145) L D 07/10/18 08:28 Potassium 4.5 mmol/L (3.6-5.0) 07/10/18 08:28 Chloride 96.1 mmol/L (98-107) L 07/10/18 08:28 Carbon Dioxide 20 mmol/L (22-30) L 07/10/18 08:28 Anion Gap 18 mmol/L 07/10/18 08:28 BUN 9 mg/dL (7-17) 07/10/18 08:28 Creatinine 0.7 mg/dL (0.7-1.2) 07/10/18 08:28 Estimated GFR > 60 ml/min 07/10/18 08:28 BUN/Creatinine Ratio 13 % 07/10/18 08:28 Glucose 449 mg/dL (65-100) H 07/10/18 08:28 POC Glucose 426 (70-105) H 07/10/18 12:02 Lactic Acid 2.50 mmol/L (0.7-2.0) H* 07/10/18 08:34 Calcium 8.9 mg/dL (8.4-10.2) 07/10/18 08:28 Total Bilirubin 0.50 mg/dL (0.1-1.2) 07/09/18 17:49 AST 10 units/L (5-40) 07/09/18 17:49 ALT 10 units/L (7-56) 07/09/18 17:49 Alkaline Phosphatase 69 units/L (35-129) 07/09/18 17:49 NT-Pro-B Natriuret Pep 247.9 pg/mL (0-450) 07/09/18 17:49 Total Protein 6.7 g/dL (6.3-8.2) 07/09/18 17:49 Albumin 3.6 g/dL (3.9-5) L 07/09/18 17:49 Albumin/Globulin Ratio 1.2 % 07/09/18 17:49 HCG, Qual Negative (Negative) 07/09/18 17:54 Active Medications - Current Medications Current Medications: Generic Name Dose Route Start Last Admin Trade Name Freq PRN Reason Stop Dose Admin Acetaminophen 650 mg 07/10/18 03:42 07/10/18 04:04 Tylenol PO 650 mg Q4H PRN Administration Pain MILD(1-3)/Fever >100.5/OLIVO Albuterol/Ipratropium 1 ampul 07/10/18 08:00 07/10/18 13:39 Duoneb *Not For Prn Use* IH 1 ampul Q6HRT NILAM Administration Amlodipine Besylate 10 mg 07/10/18 08:00 07/10/18 08:43 Norvasc PO 10 mg QDAY NILAM Administration Dextrose 50 ml 07/10/18 03:42 D50w (25gm) Syringe IV PRN PRN Hypoglycemia Enoxaparin Sodium 40 mg 07/10/18 10:00 07/10/18 11:39 Lovenox SUB-Q 40 mg QDAY NILAM Administration Hydralazine HCl 5 mg 07/10/18 04:33 Apresoline IV Q6H PRN Hypertension Hydrochlorothiazide 25 mg 07/10/18 08:00 07/10/18 08:44 Hctz PO 25 mg QDAY NILAM Administration Azithromycin 500 mg/ Sodium 250 mls @ 250 mls/hr 07/09/18 18:00 07/10/18 11:39 Chloride IV 250 mls/hr Q24HR NILAM Administration Protocol Ceftriaxone Sodium 1 gm in 50 mls @ 100 mls/hr 07/10/18 10:00 07/10/18 11:25 Rocephin/Ns 1 Gm/50 Ml IV 100 mls/hr Q24HR NILAM Administration Protocol Insulin Human Isoph/Insulin Regular 35 unit 07/10/18 17:00 Humulin 70/30 SUB-Q BIDDIAB NILAM Insulin Human Lispro 0 unit 07/10/18 07:30 07/10/18 13:14 Humalog SUB-Q 10 unit ACHS NILAM Administration Protocol Labetalol HCl 100 mg 07/10/18 08:00 07/10/18 08:49 Normodyne PO 100 mg BID NILAM Administration Methylprednisolone Sodium Succinate 60 mg 07/10/18 06:00 07/10/18 05:33 Solu-Medrol IV 60 mg Q8HR NILAM Administration Ondansetron HCl 4 mg 07/10/18 03:42 Zofran IV Q8H PRN Nausea And Vomiting Pseudoephedrine/Acetam/Chlorphenir 10 ml 07/10/18 07:34 07/10/18 08:45 Robitussin Ac PO 10 ml Q4H PRN Administration Cough Sodium Chloride 10 ml 07/10/18 10:00 07/10/18 11:26 Sodium Chloride Flush Syringe 10 Ml IV 10 ml BID NILAM Administration Sodium Chloride 10 ml 07/10/18 03:42 Sodium Chloride Flush Syringe 10 Ml IV PRN PRN LINE FLUSH
[2018-07-10 17:14] LABS: Bilirubin,Urine NEG (Negative); Blood,Urine NEG (Negative); Color,Urine Colorless (Yellow); Protein,Urine <15 mg/dL mg/dL (Negative); Urobilinogen,Urine < 2.0 mg/dL (<2.0); WBC,Urine < 1.0 /HPF (0.0-6.0)
[2018-07-11] MEDS: APRESOLINE IV PRN (00:05)
[2018-07-11] MEDS: DUONEB *Not for PRN Use IH SCH ×4 (02:08→20:42)
[2018-07-11] MEDS: TYLENOL PO PRN (04:38)
[2018-07-11] MEDS: SOLU-Medrol IV SCH ×3 (05:13→21:28)
[2018-07-11 08:24] LABS: Basophils % (Auto) 0.3 % (0.0-1.8); Hematocrit 38.8 % (30.3-42.9); Hemoglobin 12.6 gm/dl (10.1-14.3); Lymphocytes # (Auto) 1.6 K/mm3 (1.2-5.4); Lymphocytes % (Auto) 11.5 % (13.4-35.0); Mean Corpuscular HGB Conc 32 % (30-34); Mean Corpuscular Volume 84 fl (79-97); Monocytes # (Auto) 0.4 K/mm3 (0.0-0.8); Monocytes % (Auto) 2.9 % (0.0-7.3); Platelet Count 302 K/mm3 (140-440); Red Blood Count 4.62 M/mm3 (3.65-5.03); Red Cell Distribution Width 14.8 % (13.2-15.2)
[2018-07-11 08:43] LABS: BUN/Creatinine Ratio 27; Blood Urea Nitrogen 16 mg/dL (7-17); Calcium 9.8 mg/dL (8.4-10.2); Hemolysis Index 12
[2018-07-11] MEDS: HumaLOG SUB-Q SCH ×4 (08:46→22:53)
[2018-07-11] MEDS: ZITHROMAX PO SCH (10:22)
[2018-07-11] MEDS: NORMODYNE PO SCH ×2 (10:23→21:27)
[2018-07-11] MEDS: HCTZ PO SCH (10:23)
[2018-07-11] MEDS: ROCEPHIN/NS 1 GM/50 ML 1 GM/50 ML BAG IV SCH (10:23)
[2018-07-11] MEDS: LOVENOX SUB-Q SCH (10:24)
[2018-07-11] MEDS: NORVASC PO SCH (10:24)
[2018-07-11] MEDS: SODIUM CHLORIDE FLUSH SYRINGE 10 ML IV SCH ×2 (10:25→21:28)
[2018-07-11] MEDS: FIORICET PO PRN ×2 (10:33→18:17)
--- NOTE | 2018-07-11 11:04 | Progress Note ---
Assessment and Plan Assessment and plan: Acute respiratory failure likely due to COPD versus Bilateral pneumonia - Patient is on IV antibiotic - Oxygen support, breathing treatment, IV Solu-Medrol, BiPAP as needed, cough syrup Sepsis, lactic acidosis - Continue treatment as above - follow blood cultures - Lactic acid from this morning is pending - Leukocytosis trending down Hypertensive urgency - Patient was noncompliant with her blood pressure medication - Hypertension on the anterior medications and adjust as needed Diabetes mellitus with hyperglycemia - The patient on 40 units of 70/30 2 times a day, sliding scale insulin, Accu-Chek, ADA diet adjust insulin as needed Morbid obesity - Patient was counseled about weight loss, diet, exercise DVT prophylaxis - On Lovenox Disposition; per clinical course History Interval history: Patient was seen and evaluated this morning, patient's shortness of breath and cough is getting better. c/o headache. Hospitalist Physical - Physical exam Narrative exam: Not in cardiopulmonary distress. The patient is morbidly obese. Vital signs as documented. Head exam is unremarkable. No scleral icterus . Neck is without jugular venous distension, thyromegaly, or carotid bruits. Lungs are clear to auscultation. Cardiac exam reveals regular rate and Rhythm. Abdominal exam reveals normal bowel sounds, no masses, no organomegaly and no aortic enlargement. Extremities are nonedematous and both femoral and pedal pulses are normal. 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 No focal weakness. - Constitutional Vitals: Temp Pulse Resp BP Pulse Ox 98.0 F 118 H 20 175/113 95 07/11/18 06:32 07/11/18 10:24 07/11/18 07:23 07/11/18 10:24 07/11/18 07:11 Results - Labs CBC & Chem 7: 07/11/18 08:02 07/11/18 08:02 Labs: Laboratory Last Values WBC 13.9 K/mm3 (4.5-11.0) H 07/11/18 08:02 RBC 4.62 M/mm3 (3.65-5.03) 07/11/18 08:02 Hgb 12.6 gm/dl (10.1-14.3) 07/11/18 08:02 Hct 38.8 % (30.3-42.9) 07/11/18 08:02 MCV 84 fl (79-97) 07/11/18 08:02 MCH 27 pg (28-32) L 07/11/18 08:02 MCHC 32 % (30-34) 07/11/18 08:02 RDW 14.8 % (13.2-15.2) 07/11/18 08:02 Plt Count 302 K/mm3 (140-440) 07/11/18 08:02 Lymph % (Auto) 11.5 % (13.4-35.0) L 07/11/18 08:02 [place] % (Auto) 2.9 % (0.0-7.3) 07/11/18 08:02 Eos % (Auto) 0.0 % (0.0-4.3) 07/11/18 08:02 Baso % (Auto) 0.3 % (0.0-1.8) 07/11/18 08:02 Lymph # 1.6 K/mm3 (1.2-5.4) 07/11/18 08:02 [place] # 0.4 K/mm3 (0.0-0.8) 07/11/18 08:02 Eos # 0.0 K/mm3 (0.0-0.4) 07/11/18 08:02 Baso # 0.0 K/mm3 (0.0-0.1) 07/11/18 08:02 Seg Neutrophils % 85.3 % (40.0-70.0) H 07/11/18 08:02 Seg Neutrophils # 11.8 K/mm3 (1.8-7.7) H 07/11/18 08:02 D-Dimer 239.15 ng/mlDDU (0-234) H 07/09/18 17:49 Sodium 131 mmol/L (137-145) L 07/11/18 08:02 Potassium 4.2 mmol/L (3.6-5.0) 07/11/18 08:02 Chloride 97.7 mmol/L (98-107) L 07/11/18 08:02 Carbon Dioxide 21 mmol/L (22-30) L 07/11/18 08:02 Anion Gap 17 mmol/L 07/11/18 08:02 BUN 16 mg/dL (7-17) 07/11/18 08:02 Creatinine 0.6 mg/dL (0.7-1.2) L 07/11/18 08:02 Estimated GFR > 60 ml/min 07/11/18 08:02 BUN/Creatinine Ratio 27 % 07/11/18 08:02 Glucose 488 mg/dL (65-100) H 07/11/18 08:02 POC Glucose 422 (70-105) H 07/11/18 07:59 Lactic Acid 1.70 mmol/L (0.7-2.0) 07/11/18 08:02 Calcium 9.8 mg/dL (8.4-10.2) 07/11/18 08:02 Total Bilirubin 0.50 mg/dL (0.1-1.2) 07/09/18 17:49 AST 10 units/L (5-40) 07/09/18 17:49 ALT 10 units/L (7-56) 07/09/18 17:49 Alkaline Phosphatase 69 units/L (35-129) 07/09/18 17:49 NT-Pro-B Natriuret Pep 247.9 pg/mL (0-450) 07/09/18 17:49 Total Protein 6.7 g/dL (6.3-8.2) 07/09/18 17:49 Albumin 3.6 g/dL (3.9-5) L 07/09/18 17:49 Albumin/Globulin Ratio 1.2 % 07/09/18 17:49 HCG, Qual Negative (Negative) 07/09/18 17:54 Urine Color Colorless (Yellow) 07/10/18 16:40 Urine Turbidity Clear (Clear) 07/10/18 16:40 Urine pH 6.0 (5.0-7.0) 07/10/18 16:[address] 1.026 (1.003-1.030) 07/10/18 16:40 Urine Protein <15 mg/dl mg/dL (Negative) 07/10/18 16:40 Urine Glucose (UA) >=500 mg/dL (Negative) 07/10/18 16:40 Urine Ketones Neg mg/dL (Negative) 07/10/18 16:40 Urine Blood Neg (Negative) 07/10/18 16:40 Urine Nitrite Neg (Negative) 07/10/18 16:40 Urine Bilirubin Neg (Negative) 07/10/18 16:40 Urine Urobilinogen < 2.0 mg/dL (<2.0) 07/10/18 16:40 Ur Leukocyte Esterase Neg (Negative) 07/10/18 16:40 Urine WBC (Auto) < 1.0 /HPF (0.0-6.0) 07/10/18 16:40 Urine RBC (Auto) 1.0 /HPF (0.0-6.0) 07/10/18 16:40 U Epithel Cells (Auto) 2.0 /HPF (0-13.0) 07/10/18 16:40 Active Medications - Current Medications Current Medications: Generic Name Dose Route Start Last Admin Trade Name Freq PRN Reason Stop Dose Admin Acetaminophen 650 mg 07/10/18 03:42 07/11/18 04:38 Tylenol PO 650 mg Q4H PRN Administration Pain MILD(1-3)/Fever >100.5/OLIVO Acetaminophen/Butalbital/Caffeine 2 tab 07/11/18 10:30 07/11/18 10:33 Fioricet PO 2 tab Q4H PRN Administration Headache Albuterol/Ipratropium 1 ampul 07/10/18 08:00 07/11/18 07:12 Duoneb *Not For Prn Use* IH 1 ampul Q6HRT NILAM Administration Amlodipine Besylate 10 mg 07/10/18 08:00 07/11/18 10:24 Norvasc PO 10 mg QDAY NILAM Administration Azithromycin 500 mg 07/11/18 10:00 07/11/18 10:22 Zithromax PO 07/13/18 10:01 500 mg QDAY NILAM Administration Dextrose 50 ml 07/10/18 03:42 D50w (25gm) Syringe IV PRN PRN Hypoglycemia Enoxaparin Sodium 40 mg 07/10/18 10:00 07/11/18 10:24 Lovenox SUB-Q 40 mg QDAY NILAM Administration Hydralazine HCl 5 mg 07/10/18 04:33 07/11/18 00:05 Apresoline IV 5 mg Q6H PRN Administration Hypertension Hydrochlorothiazide 25 mg 07/10/18 08:00 07/11/18 10:23 Hctz PO 25 mg QDAY NILAM Administration Ceftriaxone Sodium 1 gm in 50 mls @ 100 mls/hr 07/10/18 10:00 07/11/18 10:23 Rocephin/Ns 1 Gm/50 Ml IV 100 mls/hr Q24HR NILAM Administration Protocol Insulin Human Isoph/Insulin Regular 50 unit 07/11/18 07:53 07/11/18 09:28 Humulin 70/30 SUB-Q 50 unit BIDDIAB NILAM Administration Insulin Human Lispro 0 unit 07/10/18 07:30 07/11/18 08:46 Humalog SUB-Q 10 unit ACHS NILAM Administration Protocol Labetalol HCl 100 mg 07/10/18 08:00 07/11/18 10:23 Normodyne PO 100 mg BID NILAM Administration Methylprednisolone Sodium Succinate 40 mg 07/11/18 07:54 Solu-Medrol IV Q8HR NILAM Ondansetron HCl 4 mg 07/10/18 03:42 Zofran IV Q8H PRN Nausea And Vomiting Pseudoephedrine/Acetam/Chlorphenir 10 ml 07/10/18 07:34 07/10/18 22:43 Robitussin Ac PO 10 ml Q4H PRN Administration Cough Sodium Chloride 10 ml 07/10/18 10:00 07/11/18 10:25 Sodium Chloride Flush Syringe 10 Ml IV 10 ml BID NILAM Administration Sodium Chloride 10 ml 07/10/18 03:42 Sodium Chloride Flush Syringe 10 Ml IV PRN PRN LINE FLUSH
[2018-07-11] MEDS: ROBITUSSIN AC PO PRN (21:30)
[2018-07-12] MEDS: DUONEB *Not for PRN Use IH SCH ×3 (01:30→14:32)
[2018-07-12] MEDS: APRESOLINE IV PRN (02:15)
[2018-07-12 05:18] LABS: Basophils % (Auto) 0.2 % (0.0-1.8); Hematocrit 40.8 % (30.3-42.9); Hemoglobin 13.4 gm/dl (10.1-14.3); Lymphocytes % (Auto) 12.6 % (13.4-35.0); Mean Corpuscular HGB Conc 33 % (30-34); Mean Corpuscular Volume 84 fl (79-97); Monocytes % (Auto) 6.2 % (0.0-7.3); Platelet Count 349 K/mm3 (140-440); Red Blood Count 4.85 M/mm3 (3.65-5.03)
[2018-07-12] MEDS: SOLU-Medrol IV SCH (05:35)
[2018-07-12] MEDS: ROBITUSSIN AC PO PRN (05:35)
[2018-07-12 05:39] LABS: BUN/Creatinine Ratio 21; Blood Urea Nitrogen 15 mg/dL (7-17); Calcium 10.2 mg/dL (8.4-10.2); Hemolysis Index 8
[2018-07-12] MEDS: HumaLOG SUB-Q SCH ×3 (08:20→17:21)
[2018-07-12] MEDS: FIORICET PO PRN ×2 (09:25→09:59)
[2018-07-12] MEDS: LOVENOX SUB-Q SCH (10:00)
[2018-07-12] MEDS: NORMODYNE PO SCH (10:00)
[2018-07-12] MEDS: ZITHROMAX PO SCH (10:00)
[2018-07-12] MEDS: NORVASC PO SCH (10:00)
[2018-07-12] MEDS: HCTZ PO SCH (10:00)
[2018-07-12] MEDS ORDERED: DELTASONE PO SCH (10:00)
[2018-07-12] MEDS: SODIUM CHLORIDE FLUSH SYRINGE 10 ML IV SCH (10:00)
[2018-07-12] MEDS: ROCEPHIN/NS 1 GM/50 ML 1 GM/50 ML BAG IV SCH (10:04)
--- NOTE | 2018-07-12 13:58 | Progress Note ---
Assessment and Plan Assessment and plan: Acute respiratory failure likely due to COPD versus Bilateral pneumonia - Patient is on IV antibiotic - Oxygen support, breathing treatment, IV Solu-Medrol (changed to ppresnsolone 40 mg daily), BiPAP as needed, cough syrup - Resolving Sepsis, lactic acidosis - Continue treatment as above - follow blood cultures - Lactic acid is normal - Leukocytosis trending down Hypertensive urgency - Patient was noncompliant with her blood pressure medication - Hypertension on the anterior medications and adjust as needed Diabetes mellitus with hyperglycemia -Increased to 60 units of 70/30 2 times a day, sliding scale insulin, Accu-Chek, ADA diet adjust insulin as needed - Patient's blood glucoses in the 400s likely diabetes and steroid, decrease the dose of steroid Morbid obesity - Patient was counseled about weight loss, diet, exercise DVT prophylaxis - On Lovenox Disposition; discharge once blood sugar is in a reasonable range. History Interval history: Patient was seen and evaluated this morning, patient's shortness of breath and cough is getting better. Hospitalist Physical - Physical exam Narrative exam: Not in cardiopulmonary distress. The patient is morbidly obese. Vital signs as documented. Head exam is unremarkable. No scleral icterus . Neck is without jugular venous distension, thyromegaly, or carotid bruits. Lungs are clear to auscultation. Cardiac exam reveals regular rate and Rhythm. Abdominal exam reveals normal bowel sounds, no masses, no organomegaly and no aortic enlargement. Extremities are nonedematous and both femoral and pedal pulses are normal. ASSET PROTECTION GREETER: Alert and oriented 3. No focal weakness. - Constitutional Vitals: Temp Pulse Resp BP Pulse Ox 98.1 F 111 H 22 152/106 93 07/12/18 12:34 07/12/18 12:34 07/12/18 12:34 07/12/18 12:34 07/12/18 12:34 Results - Labs CBC & Chem 7: 07/12/18 04:54 07/12/18 04:54 Labs: Laboratory Last Values WBC 15.5 K/mm3 (4.5-11.0) H 07/12/18 04:54 RBC 4.85 M/mm3 (3.65-5.03) 07/12/18 04:54 Hgb 13.4 gm/dl (10.1-14.3) 07/12/18 04:54 Hct 40.8 % (30.3-42.9) 07/12/18 04:54 MCV 84 fl (79-97) 07/12/18 04:54 MCH 28 pg (28-32) 07/12/18 04:54 MCHC 33 % (30-34) 07/12/18 04:54 RDW 15.0 % (13.2-15.2) 07/12/18 04:54 Plt Count 349 K/mm3 (140-440) 07/12/18 04:54 Lymph % (Auto) 12.6 % (13.4-35.0) L 07/12/18 04:54 Hart % (Auto) 6.2 % (0.0-7.3) 07/12/18 04:54 Eos % (Auto) 0.0 % (0.0-4.3) 07/12/18 04:54 Baso % (Auto) 0.2 % (0.0-1.8) 07/12/18 04:54 Lymph # 2.0 K/mm3 (1.2-5.4) 07/12/18 04:54 Hart # 1.0 K/mm3 (0.0-0.8) H 07/12/18 04:54 Eos # 0.0 K/mm3 (0.0-0.4) 07/12/18 04:54 Baso # 0.0 K/mm3 (0.0-0.1) 07/12/18 04:54 Seg Neutrophils % 81.0 % (40.0-70.0) H 07/12/18 04:54 Seg Neutrophils # 12.6 K/mm3 (1.8-7.7) H 07/12/18 04:54 D-Dimer 239.15 ng/mlDDU (0-234) H 07/09/18 17:49 Sodium 132 mmol/L (137-145) L 07/12/18 04:54 Potassium 4.0 mmol/L (3.6-5.0) 07/12/18 04:54 Chloride 92.6 mmol/L (98-107) L 07/12/18 04:54 Carbon Dioxide 22 mmol/L (22-30) 07/12/18 04:54 Anion Gap 21 mmol/L 07/12/18 04:54 BUN 15 mg/dL (7-17) 07/12/18 04:54 Creatinine 0.7 mg/dL (0.7-1.2) 07/12/18 04:54 Estimated GFR > 60 ml/min 07/12/18 04:54 BUN/Creatinine Ratio 21 % 07/12/18 04:54 Glucose 490 mg/dL (65-100) H 07/12/18 04:54 POC Glucose 396 (70-105) H 07/12/18 11:56 Lactic Acid 1.70 mmol/L (0.7-2.0) 07/11/18 08:02 Calcium 10.2 mg/dL (8.4-10.2) 07/12/18 04:54 Total Bilirubin 0.50 mg/dL (0.1-1.2) 07/09/18 17:49 AST 10 units/L (5-40) 07/09/18 17:49 ALT 10 units/L (7-56) 07/09/18 17:49 Alkaline Phosphatase 69 units/L (35-129) 07/09/18 17:49 NT-Pro-B Natriuret Pep 247.9 pg/mL (0-450) 07/09/18 17:49 Total Protein 6.7 g/dL (6.3-8.2) 07/09/18 17:49 Albumin 3.6 g/dL (3.9-5) L 07/09/18 17:49 Albumin/Globulin Ratio 1.2 % 07/09/18 17:49 HCG, Qual Negative (Negative) 07/09/18 17:54 Urine Color Colorless (Yellow) 07/10/18 16:40 Urine Turbidity Clear (Clear) 07/10/18 16:40 Urine pH 6.0 (5.0-7.0) 07/10/18 16:40 Ur Specific [place] 1.026 (1.003-1.030) 07/10/18 16:40 Urine Protein <15 mg/dl mg/dL (Negative) 07/10/18 16:40 Urine Glucose (UA) >=500 mg/dL (Negative) 07/10/18 16:40 Urine Ketones Neg mg/dL (Negative) 07/10/18 16:40 Urine Blood Neg (Negative) 07/10/18 16:40 Urine Nitrite Neg (Negative) 07/10/18 16:40 Urine Bilirubin Neg (Negative) 07/10/18 16:40 Urine Urobilinogen < 2.0 mg/dL (<2.0) 07/10/18 16:40 Ur Leukocyte Esterase Neg (Negative) 07/10/18 16:40 Urine WBC (Auto) < 1.0 /HPF (0.0-6.0) 07/10/18 16:40 Urine RBC (Auto) 1.0 /HPF (0.0-6.0) 07/10/18 16:40 U Epithel Cells (Auto) 2.0 /HPF (0-13.0) 07/10/18 16:40 Active Medications - Current Medications Current Medications: Generic Name Dose Route Start Last Admin Trade Name Freq PRN Reason Stop Dose Admin Acetaminophen 650 mg 07/10/18 03:42 07/11/18 04:38 Tylenol PO 650 mg Q4H PRN Administration Pain MILD(1-3)/Fever >100.5/OLIVO Acetaminophen/Butalbital/Caffeine 2 tab 07/11/18 10:30 07/12/18 09:59 Fioricet PO 1 tab Q4H PRN Administration Headache Albuterol/Ipratropium 1 ampul 07/10/18 08:00 07/12/18 11:08 Duoneb *Not For Prn Use* IH 1 ampul Q6HRT NILAM Administration Amlodipine Besylate 10 mg 07/10/18 08:00 07/12/18 10:00 Norvasc PO 10 mg QDAY NILAM Administration Azithromycin 500 mg 07/11/18 10:00 07/12/18 10:00 Zithromax PO 07/13/18 10:01 500 mg QDAY NILAM Administration Dextrose 50 ml 07/10/18 03:42 D50w (25gm) Syringe IV PRN PRN Hypoglycemia Enoxaparin Sodium 40 mg 07/10/18 10:00 07/12/18 10:00 Lovenox SUB-Q 40 mg QDAY NILAM Administration Hydralazine HCl 5 mg 07/10/18 04:33 07/12/18 02:15 Apresoline IV 5 mg Q6H PRN Administration Hypertension Hydrochlorothiazide 25 mg 07/10/18 08:00 07/12/18 10:00 Hctz PO 25 mg QDAY NILAM Administration Ceftriaxone Sodium 1 gm in 50 mls @ 100 mls/hr 07/10/18 10:00 07/12/18 10:04 Rocephin/Ns 1 Gm/50 Ml IV 100 mls/hr Q24HR NILAM Administration Protocol Insulin Human Isoph/Insulin Regular 60 unit 07/12/18 13:52 Humulin 70/30 SUB-Q BIDDIAB NILAM Insulin Human Lispro 0 unit 07/10/18 07:30 07/12/18 12:14 Humalog SUB-Q 10 unit ACHS NILAM Administration Protocol Labetalol HCl 100 mg 07/10/18 08:00 07/12/18 10:00 Normodyne PO 100 mg BID NILAM Administration Ondansetron HCl 4 mg 07/10/18 03:42 Zofran IV Q8H PRN Nausea And Vomiting Prednisone 40 mg 07/12/18 10:00 07/12/18 10:03 Deltasone PO 40 mg QDAY NILAM Administration Pseudoephedrine/Acetam/Chlorphenir 10 ml 07/10/18 07:34 07/12/18 05:35 Robitussin Ac PO 10 ml Q4H PRN Administration Cough Sodium Chloride 10 ml 07/10/18 10:00 07/12/18 10:00 Sodium Chloride Flush Syringe 10 Ml IV 10 ml BID NILAM Administration Sodium Chloride 10 ml 07/10/18 03:42 Sodium Chloride Flush Syringe 10 Ml IV PRN PRN LINE FLUSH Nutrition/Malnutrition Assess - Dietary Evaluation Nutrition/Malnutrition Findings: Nutrition Notes Start: 07/12/18 10:47 Freq: Status: Active Protocol: Document 07/12/18 10:47 LP (Rec: 07/12/18 10:49 LP [id number]) Nutrition Notes Need for Assessment generated from: MD Order Initial or Follow up Brief Note Current Diagnosis Diabetes,Hypertension, Respiratory Failure Current Diet Cardiac/consistent CHO Labs/Tests BG 490 Pertinent Medications Solumedrol Subjective/Other Information Consult for DM education. Pt denies need for diet education , states being educated before and had issues due to depression of miscarriage. Pt state she knows that she has to do and left handout at bedside. #1 Nutrition Diagnosis Food and nutrition-related knowledge deficit Etiology depression As Evidenced by Signs and Symptoms Pt states not taking medication due to depression Nutrition Intervention Teaching Recipient Patient Learning Readiness Refused Teaching Methods Handout Response to Teaching Refuses to learn Education Handouts Provided Consistent CHO Barriers to Learning Emotional RD phone number provided Yes Patient aware of follow up options Yes Revisit per MD consult or patient Sign Off request:
[2018-07-12 17:46] VITALS: BP 150/103
--- NOTE | 2018-07-15 05:52 | Discharge Summary ---
Providers - Providers Date of Admission: 07/09/18 23:43 Date of discharge: 07/12/18 Attending physician: JAVED LANG MD 07/12/18 08:24 Consult to Dietitian/Nutrition [CONS] Routine Physician Instructions: Reason For Exam: DIABETES Reason for Consult: Diet education [facility] Reason for admission: Severe sepsis, with organ failure Condition: Stable Pertinent studies: CTA; bilateral pneumonia Hospital course: 32-year-old woman with a history of hypertension, diabetes comes emergency room complaining of nonproductive cough, shortness of breath, wheezing for the last 2 days. Patient was found to have severe sepsis, bilateral pneumonia, respiratory failure, DM with severe hyperglycemia. she was admitted to the floor and was managed according to sepsis protocol and patient showed improvement. But her blood sugar was in the 300's and 400's despite i have increased her 70/30 to 60 units BID. Patient was seen and evaluated on the day of discharge and the plan was to increase 70/30 and discharge once blood sugar was in acceptable range, but the patient sign AMA later in the afternoon. Risk benefits were explained to the patient and she understood. Disposition: DC-07 LEFT AGAINST MED ADVICE Time spent for discharge: 32 minutes - Discharge Diagnoses (1) Severe sepsis Status: Acute (2) Lactic acid acidosis Status: Acute (3) Acute respiratory failure Status: Acute (4) Bilateral pneumonia Status: Acute (5) Insulin dependent diabetes mellitus Status: Acute (6) Morbid obesity Status: Acute (7) Wheezing Status: Acute Core Measure Documentation - Palliative Care Palliative Care/ Comfort Measures: Not Applicable - Core Measures Any of the following diagnoses?: none Exam - Physical Exam Narrative exam: Not in cardiopulmonary distress. The patient is morbidly obese. Vital signs as documented. Head exam is unremarkable. No scleral icterus . Neck is without jugular venous distension, thyromegaly, or carotid bruits. Lungs are clear to auscultation. Cardiac exam reveals regular rate and Rhythm. Abdominal exam reveals normal bowel sounds, no masses, no organomegaly and no aortic enlargement. Extremities are nonedematous and both femoral and pedal pulses are normal. PARTNER: Alert and oriented 3. No focal weakness. - Constitutional Vitals: Temp Pulse Resp BP Pulse Ox 98.1 F 114 H 22 150/103 97 07/12/18 16:58 07/12/18 16:58 07/12/18 16:58 07/12/18 16:58 07/12/18 16:58 Plan Activity: other (Sign AMA) Diet: other (Sign AMA) Additional Instructions: Patient left AMA Follow up with: MARITA WAGONER MD [Primary Care Provider] - 3-5 Days
== END 2018-07-12 17:58 | disposition left against medical advice (07) | DRG 871 ==
LOC: ED 16:43 → 3A 23:43
PROVIDERS: ADMIT Internal Medicine; ATTEND Internal Medicine
DX: A41.9 Sepsis, unspecified organism (principal); J18.9 Pneumonia, unspecified organism; J96.00 Acute respiratory failure, unspecified whether with hypoxia or hypercapnia; E66.01 Morbid (severe) obesity due to excess calories; E11.65 Type 2 diabetes mellitus with hyperglycemia; I16.0 Hypertensive urgency; J44.0 Chronic obstructive pulmonary disease with (acute) lower respiratory infection; I10 Essential (primary) hypertension; Z72.89 Other problems related to lifestyle; Z68.42 Body mass index [BMI] 45.0-49.9, adult; Z71.3 Dietary counseling and surveillance; Z91.14 Patient's other noncompliance with medication regimen; Z82.49 Family history of ischemic heart disease and other diseases of the circulatory system; Z79.4 Long term (current) use of insulin; Z79.899 Other long term (current) drug therapy; R65.20 Severe sepsis without septic shock
CPT/HCPCS: 36415; 71045; 71275; 80048; 80053; 81001; 82140; 82962; 83880; 84703; 85025; 85379; 87040; 93005; 93010; 94640; 94760; 96361; 96365; 96375; 99406; G0378; J0360; J0456; J0696; J1650; J1815; J2405; J2920; J7030; J7050; J7512; Q9967

== ENCOUNTER 2018-09-22 03:47 | Emergency (ER) | payer MEDICAID ==
[2018-09-22] MEDS ORDERED: ASPIRIN PO ONE (03:55)
[2018-09-22 04:31] LABS: Basophils # (Auto) 0.1 K/mm3 (0.0-0.1); Basophils % (Auto) 0.6 % (0.0-1.8); Eosinophils # (Auto) 0.5 K/mm3 (0.0-0.4); Eosinophils % (Auto) 5.2 % (0.0-4.3); Hematocrit 34.6 % (30.3-42.9); Hemoglobin 11.5 gm/dl (10.1-14.3); Lymphocytes % (Auto) 34.3 % (13.4-35.0); Mean Corpuscular HGB Conc 33 % (30-34); Mean Corpuscular Volume 84 fl (79-97); Monocytes # (Auto) 0.5 K/mm3 (0.0-0.8); Monocytes % (Auto) 6.2 % (0.0-7.3); Platelet Count 293 K/mm3 (140-440); Red Blood Count 4.14 M/mm3 (3.65-5.03); Red Cell Distribution Width 14.8 % (13.2-15.2)
[2018-09-22 04:48] LABS: BUN/Creatinine Ratio 9; Blood Urea Nitrogen 6 mg/dL (7-17); Calcium 9.1 mg/dL (8.4-10.2); Hemolysis Index 5
--- NOTE | 2018-09-22 05:59 | XRay Report ---
CHEST 1 VIEW INDICATION: Chest Pain. COMPARISON: None. FINDINGS: Support devices: None. Heart: Normal. Lungs/Pleura: No acute pulmonary or pleural findings. IMPRESSION: 1. No acute findings. Signer Name: Maurice Orozco MD Signed: 09/22/2018 5:54 AM Workstation Name: [id number]
[2018-09-22] MEDS ORDERED: K-DUR PO ONE ×2 (06:17→06:30)
[2018-09-22] MEDS ORDERED: TESSALON PERLES PO ONE (06:25)
[2018-09-22] MEDS ORDERED: DUONEB *Not for PRN Use IH ONE (06:25)
--- NOTE | 2018-09-22 06:39 | Emergency Department Report ---
HPI - General Chief Complaint: Dyspnea/Respdistress Time Seen by Provider: 09/22/18 06:12 - HPI HPI: 32-year-old [place] female presents to the emergency department with the continued complaints of shortness of breath and a mixed dry and productive cough . The patient was diagnosed here in June with pneumonia and she says that she has been dealing with that since that time. She has recently been to a hospital in [facility] near where she lives, 2 different times for the same complaints. She says that she last was told that she may have some signs of CHF and is supposed to follow-up with a machine staker tomorrow. However the patient says that she had some recent worsening of her shortness of breath so she came in to be seen. She is a tobacco smoker but denies any illicit drug use. She last finished some antibiotics about 4 days ago. She denies any fever, lower extremity swelling, nausea, vomiting or diaphoresis. She also has a past medi jessica history of diabetes, hypertension. ED Past Medical Hx - Past Medical History Previous Medical History?: Yes Hx Hypertension: Yes Hx Congestive Heart Failure: No Hx Diabetes: Yes Hx Deep Vein Thrombosis: No Hx Renal Disease: No Hx Sickle Cell Disease: No Hx Seizures: No Hx Asthma: No Hx COPD: No Hx HIV: No Additional medical history: pneumonia - Surgical History Past Surgical History?: Yes Additional Surgical History: x2. d&c. - Social History Smoking Status: Never Smoker Substance Use Type: None - Medications Home Medications: Home Medications Medication Instructions Recorded Confirmed Last Taken Type Ferrous Sulfate 1 tab PO DAILY 11/04/15 11/04/15 11/03/15 09:00 History 1 Insulin NPH Human Isophane 44 unit SQ QPM 11/04/15 11/04/15 11/03/15 21:00 History [Novolin N] 1 Insulin NPH Human Isophane 60 units SQ QAM 11/04/15 11/04/15 11/03/15 09:00 History [Novolin N] 1 Insulin Regular, Human Inj 30 units SQ QPM 11/04/15 11/04/15 11/03/15 21:00 History [NovoLIN R Inj] 1 Insulin Regular, Human Inj 32 units SQ QAM 11/04/15 11/04/15 11/03/15 09:00 History [NovoLIN R Inj] 1 Metformin HCl [Metformin] 1 tab PO BID 11/04/15 11/04/15 07/09/18 22:00 History Pnv with Ca,No.72/Iron/FA 1 tab PO DAILY 11/04/15 11/04/15 11/03/15 09:00 History [ Plus Tablet] 1 Insulin NPH, Human [NovoLIN N] 22 unit SUB-Q HS #7 units 11/07/15 Unknown Rx Insulin NPH, Human [NovoLIN N] 30 unit SUB-Q QAMDIAB #7 units 11/07/15 Unknown Rx Insulin Regular, Human [HumuLIN R] 15 units SUB-Q QHS #7 units 11/07/15 Unknown Rx Insulin Regular, Human [HumuLIN R] 16 units SUB-Q QAMDIAB #7 units 11/07/15 Unknown Rx Ibuprofen [Motrin 800 MG tab] 800 mg PO Q6H PRN #30 tablet 05/20/18 Unknown Rx levoFLOXacin [Levaquin TAB] 500 mg PO QDAY #7 tablet 05/20/18 Unknown Rx oxyCODONE /ACETAMINOPHEN [Percocet 2 tab PO Q4H PRN #14 tablet 05/20/18 07/10/18 Unknown Rx 5/325 mg] ALBUTEROL Inhaler (OR & NICU) 2 puff IH QID PRN #1 inhalation 09/22/18 Unknown Rx [ProAir HFA Inhaler] guaiFENesin/CODEINE [Robitussin AC] 5 ml PO Q6H PRN #100 ml 09/22/18 Unknown Rx levoFLOXacin [Levaquin] 750 mg PO QDAY #5 tablet 09/22/18 Unknown Rx ED Review of Systems ROS: Stated complaint: SERINA Other details as noted in HPI Comment: All other systems reviewed and negative Constitutional: denies: chills, fever Eyes: denies: eye pain, vision change ENT: denies: ear pain, throat pain Respiratory: cough, shortness of breath Cardiovascular: chest pain (chest tightness). denies: palpitations, edema Gastrointestinal: denies: abdominal pain, vomiting Genitourinary: denies: dysuria, frequency Musculoskeletal: denies: back pain, arthralgia Skin: denies: rash, lesions Neurological: denies: headache, weakness Physical Exam - Physical Exam Vital Signs: Vital Signs 09/22/18 09/22/18 03:48 06:03 Temperature 97.6 F Pulse Rate 92 H 94 H Respiratory 20 18 Rate Blood Pressure 152/99 Blood Pressure 142/93 [Right] O2 Sat by Pulse 99 98 Oximetry Physical Exam: GENERAL: The patient is well-developed well-nourished. HENT: Normocephalic. Atraumatic. Patient has moist mucous membranes. EYES: Extraocular motions are intact. Pupils equal reactive to light bila terally. NECK: Supple. Trachea is midline. CHEST/LUNGS: Clear to auscultation. A dry cough heard during examination. No tachypnea or accessory muscle use. There is no respiratory distress noted. HEART/CARDIOVASCULAR: Regular. There is no tachycardia. There is no murmur. ABDOMEN: Abdomen is soft, nontender. Patient has normal bowel sounds. Morbidly obese habitus. SKIN: Skin is warm and dry. NEURO: The patient is awake, alert, and oriented. The patient is cooperative. The patient has no focal neurologic deficits. The patient has normal speech. MUSCULOSKELETAL: There is no tenderness or deformity. There is no evidence of acute injury. ED Course Vital Signs 09/22/18 09/22/18 03:48 06:03 Temperature 97.6 F Pulse Rate 92 H 94 H Respiratory 20 18 Rate Blood Pressure 152/99 Blood Pressure 142/93 [Right] O2 Sat by Pulse 99 98 Oximetry ED Medical Decision Making - Lab Data Result diagrams: 09/22/18 04:00 09/22/18 04:00 - EKG Data -: EKG Interpreted by Me EKG shows normal: sinus rhythm, axis (left axis deviation), intervals, QRS complexes (LVH), ST-T waves Rate: normal - EKG Data When compared to previous EKG there are: no significant change Interpretation: unchanged when compared t (07/09/18) - Radiology Data Radiology results: report reviewed, image reviewed interpreted by me: Chest x-ray does not show any acute process. There are no pleural effusions, obvious pneumonia and there is no pneumothorax. CT angio chest INDICATION / CLINICAL INFORMATION: SOB, elevated dimer. TECHNIQUE: Precontrast bolus timing images were obtained followed by postcontrast axial and reformatted images. 3-plane MIP reconstructions were performed at an independent workstation by the technologist. All CT scans at this location are performed using CT dose reduction for ALARA by means of automated exposure control. COMPARISON: None available. FINDINGS: Arterial enhancement is normal. No evidence of pulmonary blood. There are mild groundglass opacities seen in the left upper lobe and superior segment of the left lower lobe. Dependent atelectasis is resident bilaterally. No mediastinal adenopathy. The thoracic aorta enhances normally. No pericardial effusion. Limited upper abdominal images and skeletal structures are not remarkable. IMPRESSION: 1. No evidence of pulmonary embolism. 2. Groundglass opacities in the left upper lobe and superior segment of the left lower lobe may represent acute disease. - Medical Decision Making This patient presents to the emergency department with a complaint of some chest tightness, productive cough and shortness of breath. She has a history of bilateral pneumonia and lingering symptoms since June. She has been on at least 2 different courses of antibiotics. Patient's labs have been mostly unremarkable today except for a slightly elevated and equivocal d-dimer. The initial chest x-ray did not show any pleural effusions, pneumonia, focal consolidation, pneumothorax, or any other acute process. She had a CT angiography of the chest that did not show any signs of pulmonary embolism, aneurysm, dissection, but did show some groundglass opacities in the left upper lobe and superior portion of the left lower lobe. While the patient does not have any fever or leukocytosis, the patient is a diabetic and has this history of recent significant pneumonia. For these reasons, I do not feel that the patient requires admission at this time, but she will be placed on a course of antibiotics and received the first dose here in the emergency department. She is instructed to follow up with her primary care physician and may need to either see pulmonology or infectious disease to evaluate why she continues to have lingering symptoms and these opacities/infiltrates. However the patient will return to the emergency Department with any worsening of her symptoms or with any acute distress. - Differential Diagnosis pneumonia, PE, bronchitis, CHF Critical Care Time: No Critical care attestation.: If time is entered above; I have spent that time in minutes in the direct care of this critically ill patient, excluding procedure time. ED Disposition Clinical Impression: Hyperglycemia Pneumonia Qualifiers: Pneumonia type: due to unspecified organism Laterality: left Lung location: upper lobe of lung Qualified Code(s): J18.1 - Lobar pneumonia, unspecified organism Disposition: - TO HOME OR SELFCARE Is pt being admited?: No Condition: Stable Instructions: Community-acquired Pneumonia (ED), Bacterial Pneumonia (ED), Diabetic Hyperglycemia (ED) Additional Instructions: Follow-up with your primary care physician in the next few days. Return to the emergency Department with any worsening of your symptoms or any acute distress. Take the antibiotics as prescribed. You have been prescribed a medication that is sedating and therefore should not be taken prior to driving, working, and responsible for children and in no way should be mixed with alcohol of any quantity. Prescriptions: levoFLOXacin [Levaquin] 750 mg PO QDAY #5 tablet ALBUTEROL Inhaler (OR & NICU) [ProAir HFA Inhaler] 2 puff IH QID PRN #1 inhalation PRN Reason: Shortness Of Breath guaiFENesin/CODEINE [Robitussin AC] 5 ml PO Q6H PRN #100 ml PRN Reason: Cough Referrals: [facility] [Other] - 2-3 Days Time of Disposition: 10:58
[2018-09-22] MEDS ORDERED: MORPHINE IV ONE (08:43)
--- NOTE | 2018-09-22 09:04 | Cat Scan Report ---
CT angio chest INDICATION / CLINICAL INFORMATION: SOB, elevated dimer. TECHNIQUE: Precontrast bolus timing images were obtained followed by postcontrast axial and reformatted images. 3-plane MIP reconstructions were performed at an independent workstation by the technologist. All CT scans at this location are performed using CT dose reduction for ALARA by means of automated exposure control. COMPARISON: None available. FINDINGS: Arterial enhancement is normal. No evidence of pulmonary blood. There are mild groundglass opacities seen in the left upper lobe and superior segment of the left low er lobe. Dependent atelectasis is resident bilaterally. No mediastinal adenopathy. The thoracic aorta enhances normally. No pericardial effusion. Limited upper abdominal images and skeletal structures are not remarkable. IMPRESSION: 1. No evidence of pulmonary embolism. 2. Groundglass opacities in the left upper lobe and superior segment of the left lower lobe may repre sent acute disease. Signer Name: Leonides Rangel MD Signed: 09/22/2018 9:00 AM Workstation Name: [id number]
[2018-09-22] MEDS ORDERED: LEVAQUIN 750MG/150ML 750 MG/150 ML BAG IV ONE (09:42)
[2018-09-22 12:10] VITALS: BP 117/65
== END 2018-09-22 12:10 | disposition home or self-care (01) ==
LOC: ED 03:47
DX: J18.1 Lobar pneumonia, unspecified organism (principal); E11.65 Type 2 diabetes mellitus with hyperglycemia; I11.0 Hypertensive heart disease with heart failure; I50.9 Heart failure, unspecified; Z79.4 Long term (current) use of insulin; Z79.899 Other long term (current) drug therapy; Z79.1 Long term (current) use of non-steroidal anti-inflammatories (NSAID)
CPT/HCPCS: 36415; 71045; 71275; 80048; 83880; 84484; 84703; 85025; 85379; 93005; 93010; 94640; 96365; 96375; 99285; J1956; J2270; Q9967

== ENCOUNTER 2018-10-17 23:00 | Emergency (ER) | payer MEDICAID ==
[2018-10-17 23:44] LABS: Basophils % (Auto) 0.5 % (0.0-1.8); Eosinophils # (Auto) 0.3 K/mm3 (0.0-0.4); Hemoglobin 11.6 gm/dl (10.1-14.3); Lymphocytes # (Auto) 3.4 K/mm3 (1.2-5.4); Lymphocytes % (Auto) 35.1 % (13.4-35.0); Mean Corpuscular HGB Conc 33 % (30-34); Mean Corpuscular Volume 83 fl (79-97); Monocytes # (Auto) 0.7 K/mm3 (0.0-0.8); Monocytes % (Auto) 7.1 % (0.0-7.3); Platelet Count 292 K/mm3 (140-440); Red Blood Count 4.19 M/mm3 (3.65-5.03); Red Cell Distribution Width 14.8 % (13.2-15.2)
[2018-10-18 00:03] LABS: BUN/Creatinine Ratio 10; Blood Urea Nitrogen 7 mg/dL (7-17); Calcium 8.9 mg/dL (8.4-10.2); Hemolysis Index 11
--- NOTE | 2018-10-18 00:13 | XRay Report ---
CHEST 2 VIEWS INDICATION / CLINICAL INFORMATION: deloris. COMPARISON: 09/22/2018 FINDINGS: SUPPORT DEVICES: None. HEART / MEDIASTINUM: No significant abnormality. LUNGS / PLEURA: There is now slight to moderate bibasilar density not seen previously. Upper lungs ar e clear. No effusions are seen. No pneumothorax. ADDITIONAL FINDINGS: No significant additional findings. IMPRESSION: 1. Developing basilar lung consolidation suggests developing pneumonia. Signer Name: Carlos Manuel Hatch MD Signed: 10/18/2018 12:09 AM Workstation Name: [id number]
[2018-10-18] MEDS ORDERED: ZITHROMAX 500 MG in NACL 0.9% 250ML 250 ML IV ONE (04:16)
[2018-10-18] MEDS ORDERED: MORPHINE IV ONE (04:16)
[2018-10-18] MEDS ORDERED: ZOFRAN IV ONE (04:16)
[2018-10-18] MEDS ORDERED: ROCEPHIN/NS 2 GM/100 ML 2 GM/100 ML BAG IV ONE (04:16)
[2018-10-18] MEDS ORDERED: HumuLIN R IV ONE (04:17)
--- NOTE | 2018-10-18 04:23 | Emergency Department Report ---
ED Shortness of Breath HPI - General Chief Complaint: Dyspnea/Respdistress Stated Complaint: BREATHING FAST AND COUGHING Source: patient Mode of arrival: Ambulatory Limitations: No Limitations - History of Present Illness Initial Comments: Patient is 32 years old female with history of diabetes, hypertension and asthma. Patient presented to the ER complaining of shortness of breath and back pain since last night. Patient stated that she use her albuterol breathing treatment but no help. Patient denied any fever, chills, nausea or vomiting. Patient denied any chest pain. MD Complaint: shortness of breath, cough -: Last night Known History Of: asthma - Related Data Home Medications Medication Instructions Recorded Confirmed Last Taken Ferrous Sulfate 1 tab PO DAILY 11/04/15 11/04/15 11/03/15 09:00 1 Insulin NPH Human Isophane 44 unit SQ QPM 11/04/15 11/04/15 11/03/15 21:00 [Novolin N] 1 Insulin NPH Human Isophane 60 units SQ QAM 11/04/15 11/04/15 11/03/15 09:00 [Novolin N] 1 Insulin Regular, Human Inj 30 units SQ QPM 11/04/15 11/04/15 11/03/15 21:00 [NovoLIN R Inj] 1 Insulin Regular, Human Inj 32 units SQ QAM 11/04/15 11/04/15 11/03/15 09:00 [NovoLIN R Inj] 1 Metformin HCl [Metformin] 1 tab PO BID 11/04/15 11/04/15 07/09/18 22:00 Pnv with Ca,No.72/Iron/FA 1 tab PO DAILY 11/04/15 11/04/15 11/03/15 09:00 [ Plus Tablet] 1 Previous Rx's Medication Instructions Recorded Last Taken Type Insulin NPH, Human [NovoLIN N] 22 unit SUB-Q HS #7 units 11/07/15 Unknown Rx Insulin NPH, Human [NovoLIN N] 30 unit SUB-Q QAMDIAB #7 units 11/07/15 Unknown Rx Insulin Regular, Human [HumuLIN R] 15 units SUB-Q QHS #7 units 11/07/15 Unknown Rx Insulin Regular, Human [HumuLIN R] 16 units SUB-Q QAMDIAB #7 units 11/07/15 Unknown Rx Ibuprofen [Motrin 800 MG tab] 800 mg PO Q6H PRN #30 tablet 05/20/18 Unknown Rx levoFLOXacin [Levaquin TAB] 500 mg PO QDAY #7 tablet 05/20/18 Unknown Rx oxyCODONE /ACETAMINOPHEN [Percocet 2 tab PO Q4H PRN #14 tablet 05/20/18 Unknown Rx 5/325 mg] ALBUTEROL Inhaler (OR & NICU) 2 puff IH QID PRN #1 inhalation 09/22/18 Unknown Rx [ProAir HFA Inhaler] guaiFENesin/CODEINE [Robitussin AC] 5 ml PO Q6H PRN #100 ml 09/22/18 Unknown Rx levoFLOXacin [Levaquin] 750 mg PO QDAY #5 tablet 09/22/18 Unknown Rx Allergies Allergy/AdvReac Type Severity Reaction Status Date / Time No Known Allergies Allergy Verified 11/22/14 06:01 ED Review of Systems ROS: Stated complaint: BREATHING FAST AND COUGHING Other details as noted in HPI Comment: All other systems reviewed and negative Constitutional: denies: chills, diaphoresis Respiratory: cough, shortness of breath. denies: orthopnea, SOB with exertion, SOB at rest, wheezing Cardiovascular: denies: chest pain, palpitations Gastrointestinal: denies: abdominal pain, nausea, vomiting, diarrhea, constipation, hematemesis, melena Musculoskeletal: denies: back pain ED Past Medical Hx - Past Medical History Previous Medical History?: Yes Hx Hypertension: Yes Hx Congestive Heart Failure: No Hx Diabetes: Yes Hx Deep Vein Thrombosis: No Hx Renal Disease: No Hx Sickle Cell Disease: No Hx Seizures: No Hx Asthma: No Hx COPD: No Hx HIV: No Additional medical history: pneumonia - Surgical History Past Surgical History?: Yes Additional Surgical History: x2. d&c. - Social History Smoking Status: Never Smoker Substance Use Type: None - Medications Home Medications: Home Medications Medication Instructions Recorded Confirmed Last Taken Type Ferrous Sulfate 1 tab PO DAILY 11/04/15 11/04/15 11/03/15 09:00 History 1 Insulin NPH Human Isophane 44 unit SQ QPM 11/04/15 11/04/15 11/03/15 21:00 History [Novolin N] 1 Insulin NPH Human Isophane 60 units SQ QAM 11/04/15 11/04/15 11/03/15 09:00 History [Novolin N] 1 Insulin Regular, Human Inj 30 units SQ QPM 11/04/15 11/04/15 11/03/15 21:00 History [NovoLIN R Inj] 1 Insulin Regular, Human Inj 32 units SQ QAM 11/04/15 11/04/15 11/03/15 09:00 History [NovoLIN R Inj] 1 Metformin HCl [Metformin] 1 tab PO BID 11/04/15 11/04/15 07/09/18 22:00 History Pnv with Ca,No.72/Iron/FA 1 tab PO DAILY 11/04/15 11/04/15 11/03/15 09:00 History [ Plus Tablet] 1 Insulin NPH, Human [NovoLIN N] 22 unit SUB-Q HS #7 units 11/07/15 Unknown Rx Insulin NPH, Human [NovoLIN N] 30 unit SUB-Q QAMDIAB #7 units 11/07/15 Unknown Rx Insulin Regular, Human [HumuLIN R] 15 units SUB-Q QHS #7 units 11/07/15 Unknown Rx Insulin Regular, Human [HumuLIN R] 16 units SUB-Q QAMDIAB #7 units 11/07/15 Unknown Rx Ibuprofen [Motrin 800 MG tab] 800 mg PO Q6H PRN #30 tablet 05/20/18 Unknown Rx levoFLOXacin [Levaquin TAB] 500 mg PO QDAY #7 tablet 05/20/18 Unknown Rx oxyCODONE /ACETAMINOPHEN [Percocet 2 tab PO Q4H PRN #14 tablet 05/20/18 07/10/18 Unknown Rx 5/325 mg] ALBUTEROL Inhaler (OR & NICU) 2 puff IH QID PRN #1 inhalation 09/22/18 Unknown Rx [ProAir HFA Inhaler] guaiFENesin/CODEINE [Robitussin AC] 5 ml PO Q6H PRN #100 ml 09/22/18 Unknown Rx levoFLOXacin [Levaquin] 750 mg PO QDAY #5 tablet 09/22/18 Unknown Rx ED Physical Exam - General Limitations: No Limitations General appearance: alert, in no apparent distress - Head Head exam: Present: atraumatic, normocephalic, normal inspection - Eye Eye exam: Present: normal appearance, PERRL - ENT ENT exam: Present: normal exam, normal orophraynx, mucous membranes moist - Neck Neck exam: Present: normal inspection, full ROM. Absent: tenderness, meningismus, lymphadenopathy, thyromegaly - Respiratory Respiratory exam: Present: rales. Absent: respiratory distress, wheezes, rhon chi, stridor, accessory muscle use, decreased breath sounds, prolonged expiratory - Cardiovascular Cardiovascular Exam: Present: tachycardia - GI/Abdominal GI/Abdominal exam: Present: soft, normal bowel sounds. Absent: distended, tenderness, guarding, rebound, rigid, organomegaly, mass, bruit, pulsatile mass, hernia - Extremities Exam Extremities exam: Present: normal inspection, full ROM, normal capillary refill - Back Exam Back exam: Present: normal inspection, full ROM. Absent: CVA tenderness (R), CVA tenderness (L), muscle spasm, paraspinal tenderness, vertebral tenderness - Neurological Exam Neurological exam: Present: alert, oriented X3, CN II-XII intact - Skin Skin exam: Present: warm, intact, normal color ED Course Vital Signs 10/17/18 10/17/18 10/17/18 23:08 23:09 23:27 Temperature 98.4 F 98.4 F Pulse Rate 112 H 111 H 111 H Respiratory 36 H Rate Blood Pressure 180/123 Blood Pressure [Right] O2 Sat by Pulse 90 94 95 Oximetry 10/18/18 02:10 Temperature 98.2 F Pulse Rate 113 H Respiratory 14 Rate Blood Pressure Blood Pressure 165/105 [Right] O2 Sat by Pulse 99 Oximetry ED Medical Decision Making - Lab Data Result diagrams: 10/17/18 23:34 10/17/18 23:34 - Radiology Data Radiology results: report reviewed Chest x-ray showed bilateral basilar consolidation. - Medical Decision Making Patient is 32 years old female with history of diabetes, hypertension and asthma. Patient presented to the ER complaining of shortness of breath and back pain since last night. Patient stated that she use her albuterol breathing treatment but no help. Patient denied any fever, chills, nausea or vomiting. Patient denied any chest pain. Chest x-ray showed bilateral basilar consolidation consistent with pneumonia. Patient received 2 g of Rocephin IV, 500 mg of Zithromax. Patient will be discharged on Zithromax and advised to follow-up with her primary care physician in the next 2-3 days and to return to the ER if symptoms are not improved. Critical care attestation.: If time is entered above; I have spent that time in minutes in the direct care of this critically ill patient, excluding procedure time. ED Disposition Clinical Impression: Bilateral pneumonia, Insulin dependent diabetes mellitus Disposition: DC-01 TO HOME OR SELFCARE Is pt being admited?: No Condition: Stable Instructions: Bacterial Pneumonia (ED), Diabetes Mellitus Type 2 in Adults (ED) Referrals: [facility] [Other] - 3-5 Days
[2018-10-18 06:00] VITALS: BP 141/97
== END 2018-10-18 05:55 | disposition home or self-care (01) ==
LOC: ED 23:00
DX: J18.9 Pneumonia, unspecified organism (principal); M54.9 Dorsalgia, unspecified; I10 Essential (primary) hypertension; J45.909 Unspecified asthma, uncomplicated; E11.9 Type 2 diabetes mellitus without complications; Z79.4 Long term (current) use of insulin; Z98.890 Other specified postprocedural states; Z79.899 Other long term (current) drug therapy
CPT/HCPCS: 36415; 71046; 80048; 85025; 87040; 93005; 93010; 96365; 96368; 96375; 99284; J0456; J0696; J1815; J2270; J2405; J7050

== ENCOUNTER 2018-10-20 04:28 | Inpatient (IN) | payer MEDICAID ==
[2018-10-20] MEDS ORDERED: DUONEB *Not for PRN Use IH ONE (04:35)
[2018-10-20] MEDS ORDERED: NACL 0.9% 500 ML 500 ML IV ONE (04:37)
[2018-10-20] MEDS ORDERED: ZOFRAN IV ONE (05:29)
[2018-10-20] MEDS ORDERED: SUBLIMAZE IV ONE (05:29)
[2018-10-20 05:36] LABS: Basophils # (Auto) 0.1 K/mm3 (0.0-0.1); Basophils % (Auto) 0.6 % (0.0-1.8); Eosinophils # (Auto) 0.5 K/mm3 (0.0-0.4); Eosinophils % (Auto) 4.5 % (0.0-4.3); Hematocrit 37.3 % (30.3-42.9); Hemoglobin 12.3 gm/dl (10.1-14.3); Lymphocytes # (Auto) 3.4 K/mm3 (1.2-5.4); Mean Corpuscular HGB Conc 33 % (30-34); Mean Corpuscular Volume 83 fl (79-97); Monocytes # (Auto) 0.7 K/mm3 (0.0-0.8); Monocytes % (Auto) 7.1 % (0.0-7.3); Platelet Count 297 K/mm3 (140-440); Red Blood Count 4.49 M/mm3 (3.65-5.03); Red Cell Distribution Width 14.7 % (13.2-15.2)
[2018-10-20 05:50] LABS: Alanine Aminotransferase 12 units/L (7-56); Albumin 3.8 g/dL (3.9-5); BUN/Creatinine Ratio 15; Blood Urea Nitrogen 9 mg/dL (7-17); Calcium 8.9 mg/dL (8.4-10.2); Hemolysis Index 2
[2018-10-20] MEDS ORDERED: LEVAQUIN 750MG/150ML 750 MG/150 ML BAG IV ONE (06:10)
[2018-10-20] MEDS ORDERED: APRESOLINE IV ONE (06:14)
--- NOTE | 2018-10-20 06:14 | Emergency Department Report ---
HPI - General Chief Complaint: Dyspnea/Respdistress Time Seen by Provider: 10/20/18 06:01 - HPI HPI: 32-year-old -[place] female presents to the emergency department from home with complaint of continued shortness of breath, chest tightness, mixed dry and productive cough. The patient says she has been dealing with pneumonia since last June. I saw the patient about one month ago here for similar symptoms and she still had signs of pneumonia on x-ray at that time and was treated with some antibiotics. The patient was here on Saturday, 4 days ago, and once again was found to have bilateral pneumonia and was placed on a different antibiotic. She has been taking this medication compliantly not improved. She has a past medical history of hypertension and insulin-dependent diabetes. She is an occasional tobacco smoker but denies any illicit drug use. Primary care is Dr. Rosa Isela Lin. No recent travel or sick contacts at home. ED Past Medical Hx - Past Medical History Previous Medical History?: Yes Hx Hypertension: Yes Hx Congestive Heart Failure: No Hx Diabetes: Yes Hx Deep Vein Thrombosis: No Hx Renal Disease: No Hx Sickle Cell Disease: No Hx Seizures: No Hx Asthma: No Hx COPD: No Hx HIV: No Additional medical history: pneumonia - Surgical History Past Surgical History?: Yes Additional Surgical History: x2. d&c. - Social History Smoking Status: Never Smoker Substance Use Type: None - Medications Home Medications: Home Medications Medication Instructions Recorded Confirmed Last Taken Type Metformin HCl [Metformin] 1 tab PO BID 11/04/15 10/20/18 07/09/18 22:00 History Ibuprofen [Motrin 800 MG tab] 800 mg PO Q6H PRN #30 tablet 05/20/18 10/20/18 Unknown Rx ALBUTEROL Inhaler (OR & NICU) 2 puff IH QID PRN #1 inhalation 09/22/18 10/20/18 Unknown Rx [ProAir HFA Inhaler] Ondansetron [Zofran Odt] 4 mg PO Q8HR PRN #14 tab.rapdis 10/18/18 10/20/18 Unknown Rx traMADol [Ultram 50 MG tab] 50 mg PO Q4HR PRN #14 tablet 10/18/18 10/20/18 Unknown Rx Furosemide [Lasix] 20 mg PO QDAY 10/20/18 10/20/18 Unknown History Labetalol [Labetalol 100mg TAB] 100 mg PO BID 10/20/18 10/20/18 Unknown History Lispro Insulin [HumaLOG] 35 unit SQ AC 10/20/18 10/20/18 Unknown History ED Review of Systems ROS: Stated complaint: BREATHING FAST Other details as noted in HPI Comment: All other systems reviewed and negative Constitutional: chills, fever (subjective) Eyes: denies: eye pain, vision change ENT: denies: ear pain, throat pain Respiratory: cough, shortness of breath Cardiovascular: chest pain. denies: palpitations Gastrointestinal: denies: abdominal pain, vomiting Genitourinary: denies: dysuria, discharge Musculoskeletal: denies: back pain, arthralgia Skin: denies: rash, lesions Neurological: denies: headache, weakness Physical Exam - Physical Exam Vital Signs: Vital Signs 10/20/18 10/20/18 10/20/18 04:31 05:19 05:22 Temperature 97.7 F Pulse Rate 118 H 109 H Pulse Rate [ Anterior] Respiratory 22 24 26 H Rate Respiratory Rate [Anterior] Blood Pressure 188/121 O2 Sat by Pulse 89 94 Oximetry 10/20/18 10/20/18 05:47 05:58 Temperature Pulse Rate Pulse Rate [ 100 H 105 H Anterior] Respiratory Rate Respiratory 18 19 Rate [Anterior] Blood Pressure O2 Sat by Pulse Oximetry Physical Exam: GENERAL: The patient is well-developed well-nourished. HENT: Normocephalic. Atraumatic. Patient has moist mucous membranes. EYES: Extraocular motions are intact. Pupils equal reactive to light bilaterally. NECK: Supple. Trachea is midline. CHEST/LUNGS: There are some coarse breath sounds heard. A productive sounding cough is heard during examination. Tachypnea but no accessory muscle use. There is no respiratory distress noted. HEART/CARDIOVASCULAR: Regular. There is mild tachycardia. There is no murmur. ABDOMEN: Abdomen is soft, nontender. Patient has normal bowel sounds. Morbidly obese habitus. SKIN: Skin is warm and dry. NEURO: The patient is awake, alert, and oriented. The patient is cooperative. The patient has no focal neurologic deficits. The patient has normal speech. MUSCULOSKELETAL: There is no tenderness or deformity. There is no evidence of acute injury. ED Course Vital Signs 10/20/18 10/20/18 10/20/18 04:31 05:19 05:22 Temperature 97.7 F Pulse Rate 118 H 109 H Pulse Rate [ Anterior] Respiratory 22 24 26 H Rate Respiratory Rate [Anterior] Blood Pressure 188/121 O2 Sat by Pulse 89 94 Oximetry 10/20/18 10/20/18 05:47 05:58 Temperature Pulse Rate Pulse Rate [ 100 H 105 H Anterior] Respiratory Rate Respiratory 18 19 Rate [Anterior] Blood Pressure O2 Sat by Pulse Oximetry ED Medical Decision Making - Lab Data Result diagrams: 10/20/18 05:14 10/20/18 05:14 - EKG Data -: EKG Interpreted by Me EKG shows normal: sinus rhythm, axis, intervals, QRS complexes, ST-T waves Rate: tachycardia - EKG Data When compared to previous EKG there are: no significant change Interpretation: unchanged when compared t (09/22/18) - Radiology Data Radiology results: report reviewed, image reviewed interpreted by me: There is some consolidation or infiltrates to the bilateral bases. No p neumothorax. CTA CHEST WITH CONTRAST INDICATION : Shortness of breath, elevated d-dimer.. Chronic cough since June. TECHNIQUE: Axial imaging performed through the chest, with contrast bolus timing set to maximize opacification of the pulmonary arteries. Sagittal and coronal reformatted imag es. 3-plane MIP reformatted images were obtained. All CT scans at this location are performed using CT dose reduction for ALARA by means of automated exposure control. 100 mL of intravenous contrast administered. COMPARISON: 09/22/2018 FINDINGS: Bolus: Contrast bolus timing is adequate. PTE: No filling defect is present to suggest PTE. Mediastinum: Heart and great vessels appear normal. No pathologic mediastinal adenopathy. Lungs: Patchy bilateral groundglass infiltrates throughout both lungs are identified which have increased by 25-50% since the comparison exam. No consolidation, mass or interstitial lung disease is appreciated. This could represent pulmonary edema or bilateral infiltrates. No evidence for pleural effusion or pneumothorax. Bones: Degenerative changes in the spine with nothing acute. Upper abdomen: Limited imaging of the upper abdomen shows nothing acute. IMPRESSION: No evidence for pulmonary embolus. Bilateral lung infiltrates most consistent with pulmonary edema. Infectious infiltrates or atypical pneumonia could also be considered. Please correlate with the patient's clinical presentation. - Medical Decision Making This patient presented with some continuation of her shortness of breath, coughing that has caused multiple ER visits, urgent care visits, multiple rounds of antibiotics. The patient had some hypoxia on room air in the high 80s. She improved with oxygenation by nasal cannula. She was given a breathing treatment. Chest x-ray shows some concern for bilateral basilar infiltrates consistent with her previous visit. Labs were mostly unremarkable except for some hyperglycemia without signs of diabetic ketoacidosis. She had a slightly elevated and equivocal d-dimer so a CT angiography of the chest was done. There was no pulmonary embolism but it did confirm the bilateral basilar pneumonia. The patient has failed outpatient treatment and has this recurrent pneumonia in a diabetic patient with some previous hypoxia on arrival. For all these reasons, the patient will be admitted to the hospital for further evaluation and treatment of his except aforementioned by the hospitalist service. - Differential Diagnosis pneumonia, PE, CHF Critical Care Time: No Critical care attestation.: If time is entered above; I have spent that time in minutes in the direct care of this critically ill patient, excluding procedure time. ED Disposition Clinical Impression: Hyperglycemia, Failure of outpatient treatment Bilateral pneumonia Qualifiers: Pneumonia type: due to unspecified organism Lung location: unspecified part of lung Qualified Code(s): J18.9 - Pneumonia, unspecified organism Hypertension Qualifiers: Hypertension type: essential hypertension Qualified Code(s): I10 - Essential (primary) hypertension Dyspnea Qualifiers: Dyspnea type: shortness of breath Qualified Code(s): R06.02 - Shortness of breath Disposition: 09 OP ADMIT IP TO THIS HOSP Is pt being admited?: Yes Condition: Fair Time of Disposition: 09:01
--- NOTE | 2018-10-20 06:15 | XRay Report ---
. CHEST 1 VIEW INDICATION / CLINICAL INFORMATION: possible Sepsis. COMPARISON: 10/17/2018 FINDINGS: SUPPORT DEVICES: None. HEART / MEDIASTINUM: No significant abnormality. LUNGS / PLEURA: The bilateral lower lobe consolidation shows improvement with increasing aeration nora ecially at the right base. Upper lungs remain clear. No edema or effusions. No pneumothorax. ADDITIONAL FINDINGS: No significant additional findings. IMPRESSION: 1. Improving chest Signer Name: Carlos Manuel Hatch MD Signed: 10/20/2018 6:11 AM Workstation Name: [id number]
[2018-10-20] MEDS ORDERED: HumuLIN R IV ONE (07:03)
--- NOTE | 2018-10-20 08:53 | Cat Scan Report ---
CTA CHEST WITH CONTRAST INDICATION : Shortness of breath, elevated d-dimer.. Chronic cough since June. TECHNIQUE: Axial imaging performed through the chest, with contrast bolus timing set to maximize opa cification of the pulmonary arteries. Sagittal and coronal reformatted images. 3-plane MIP reformatte d images were obtained. All CT scans at this location are performed using CT dose reduction for ALAR A by means of automated exposure control. 100 mL of intravenous contrast administered. COMPARISON: 09/22/2018 FINDINGS: Bolus: Contrast bolus timing is adequate. PTE: No filling defect is present to suggest PTE. Mediastinum: Heart and great vessels appear normal. No pathologic mediastinal adenopathy. Lungs: Patchy bilateral groundglass infiltrates throughout both lungs are identified which have incr eased by 25-50% since the comparison exam. No consolidation, mass or interstitial lung disease is liliya reciated. This could represent pulmonary edema or bilateral infiltrates. No evidence for pleural effu fátima or pneumothorax. Bones: Degenerative changes in the spine with nothing acute. Upper abdomen: Limited imaging of the upper abdomen shows nothing acute. IMPRESSION: No evidence for pulmonary embolus. Bilateral lung infiltrates most consistent with pulmonary edema. Infectious infiltrates or atypical p neumonia could also be considered. Please correlate with the patient's clinical presentation. Signer Name: Lavon Godoy Jr, MD Signed: 10/20/2018 8:49 AM Workstation Name: [id number]
[2018-10-20] MEDS ORDERED: LASIX IV ONE (09:01)
--- NOTE | 2018-10-20 09:37 | History and Physical Report ---
History of Present Illness Date of examination: 10/20/18 Date of admission: 10/20/18 Chief complaint: Shortness of breath, productive cough for the last 2 days History of present illness: 32-year-old morbidly obese -[place] female patient with significant history of type 2 diabetes mellitus hypertension recurrent pneumonias in the past presented to the emergency room with worsening shortness of breath and productive cough of 2-3 days duration Patient had similar symptoms in June for which she was admitted and treated, patient also had a couple of ER visits Denies any fever no nausea vomiting or abdominal pain Patient has no history of bronchial asthma or COPD, history of congestive heart failure Has ongoing tobacco use Initial evaluation on chest x-ray and CTA chest bilateral pneumonia Past History Past Medical History: diabetes, hypertension Past Surgical History: (x2), Other (D&C) Social history: lives with family, smoking. denies: alcohol abuse, prescription drug abuse Family history: hypertension Medications and Allergies Allergies Allergy/AdvReac Type Severity Reaction Status Date / Time No Known Allergies Allergy Verified 11/22/14 06:01 Home Medications Medication Instructions Recorded Confirmed Last Taken Type Metformin HCl [Metformin] 1 tab PO BID 11/04/15 10/20/18 07/09/18 22:00 History Ibuprofen [Motrin 800 MG tab] 800 mg PO Q6H PRN #30 tablet 05/20/18 10/20/18 Unknown Rx ALBUTEROL Inhaler (OR & NICU) 2 puff IH QID PRN #1 inhalation 09/22/18 10/20/18 Unknown Rx [ProAir HFA Inhaler] Ondansetron [Zofran Odt] 4 mg PO Q8HR PRN #14 tab.rapdis 10/18/18 10/20/18 Unknown Rx traMADol [Ultram 50 MG tab] 50 mg PO Q4HR PRN #14 tablet 10/18/18 10/20/18 Unknown Rx Furosemide [Lasix] 20 mg PO QDAY 10/20/18 10/20/18 Unknown History Labetalol [Labetalol 100mg TAB] 100 mg PO BID 10/20/18 10/20/18 Unknown History Lispro Insulin [HumaLOG] 35 unit SQ AC 10/20/18 10/20/18 Unknown History Review of Systems Constitutional: no weight loss, no weight gain Ears, nose, mouth and throat: no nasal congestion, no nasal discharge Cardiovascular: lightheadedness, no chest pain, no orthopnea Respiratory: cough with sputum, shortness of breath Gastrointestinal: no abdominal pain, no nausea, no vomiting Genitourinary Female: no pelvic pain, no dysuria Musculoskeletal: no neck stiffness, no myalgias, no arthritis Integumentary: no rash, no lesions Neurological: no seizures, no syncope Psychiatric: no anxiety, no depression Endocrine: no cold intolerance, no heat intolerance Hematologic/Lymphatic: no easy bruising, no easy bleeding Allergic/Immunologic: no urticaria, no allergic rhinitis Exam - Constitutional Vitals: Temp Pulse Resp BP Pulse Ox 97.7 F 115 H 22 150/108 87 10/20/18 04:31 10/20/18 06:30 10/20/18 06:47 10/20/18 06:37 10/20/18 06:30 General appearance: Present: no acute distress, well-nourished - EENT Eyes: Present: PERRL, EOM intact - Neck Neck: Present: supple, normal ROM - Respiratory Respiratory effort: normal Respiratory: bilateral: diminished, rhonchi, negative: rales, wheezing - Cardiovascular Rhythm: regular Heart Sounds: Present: S1 & S2 - Extremities Extremities: no ischemia, No edema - Abdominal General gastrointestinal: Present: soft, non-tender, non-distended, normal bowel sounds - Integumentary Integumentary: Present: clear, warm - Musculoskeletal Musculoskeletal: strength equal bilaterally - Psychiatric Psychiatric: appropriate mood/affect, cooperative - Neurologic Neurologic: CNII-XII intact, moves all extremities Results - Labs CBC & Chem 7: 10/20/18 05:14 10/20/18 05:14 Labs: Abnormal lab results 10/20/18 10/20/18 10/20/18 Range/Units 05:14 05:14 05:14 MCH 27 L (28-32) pg Eos % (Auto) 4.5 H (0.0-4.3) % Eos # 0.5 H (0.0-0.4) K/mm3 D-Dimer (0-234) ng/mlDDU Sodium 135 L (137-145) mmol/L Creatinine 0.6 L (0.7-1.2) mg/dL Glucose 307 H (65-100) mg/dL POC Glucose (70-105) Lactic Acid 2.30 H* (0.7-2.0) mmol/L NT-Pro-B Natriuret Pep (0-450) pg/mL Albumin 3.8 L (3.9-5) g/dL 10/20/18 10/20/18 10/20/18 Range/Units 06:25 06:25 08:49 MCH (28-32) pg Eos % (Auto) (0.0-4.3) % Eos # (0.0-0.4) K/mm3 D-Dimer 273.56 H (0-234) ng/mlDDU Sodium (137-145) mmol/L Creatinine (0.7-1.2) mg/dL Glucose (65-100) mg/dL POC Glucose 255 H (70-105) Lactic Acid (0.7-2.0) mmol/L NT-Pro-B Natriuret Pep 536.3 H (0-450) pg/mL Albumin (3.9-5) g/dL Assessment and Plan --Be community acquired Pneumonia: Empiric antibiotics Follow cultures, oxygen titrated to O2 sats more than 90% Supportive care CTA CHEST WITH CONTRAST No evidence for pulmonary embolus. Bilateral lung infiltrates most consistent with pulmonary edema. Infectious infiltrates or atypical pneumonia could also be considered. Please correlate with the patient's clinical presentation. --Acute bronchitis; bronchodilators as needed Cough medicine, antihistamines if needed --Type 2 diabetes mellitus; moderate control Accu-Chek sliding scale coverage and ADA diet and insulin Check hemoglobin A1c, diabetic education consult --Carotid BMP/pulmonary edema on CT chest, IV Lasix Echocardiogram for LV function ejection fraction --Hypertension; moderate control Continue current antihypertensives and when necessary meds --Morbid obesity; BMI 53.3; tries dietary modification and exercise as tolerated And weight reduction when medically stable --DVT prophylaxis; Lovenox closely monitor and adjust the management as needed Monitored closely and adjust management as needed Possible discharge in 1-2 days if stable Plan of care discussed with the patient and her nurse (Spent total 55 minutes coordinating this admission Disposition; follow clinically, discharged home in stable
[2018-10-20] MEDS ORDERED: PROAIR IH PRN (12:27)
[2018-10-20] MEDS ORDERED: PROVENTIL IH PRN (12:34)
[2018-10-20 13:18] LABS: Bilirubin,Urine NEG (Negative); Blood,Urine NEG (Negative); Color,Urine Straw (Yellow); Mucus,Urine FEW /HPF; Protein,Urine <15 mg/dL mg/dL (Negative); Urobilinogen,Urine < 2.0 mg/dL (<2.0)
[2018-10-20] MEDS: HumaLOG SUB-Q SCH ×3 (14:05→21:53)
[2018-10-20] MEDS: NORMODYNE PO SCH ×2 (14:06→21:55)
[2018-10-20] MEDS: ULTRAM PO PRN (18:20)
[2018-10-20] MEDS: ROBITUSSIN AC PO PRN (18:20)
[2018-10-20] MEDS: LOVENOX SUB-Q SCH (21:53)
[2018-10-21] MEDS: ROBITUSSIN AC PO PRN ×2 (04:01→21:15)
[2018-10-21] MEDS: ULTRAM PO PRN ×2 (04:02→09:53)
[2018-10-21] MEDS: NORMODYNE PO SCH ×3 (06:56→21:25)
[2018-10-21] MEDS: LEVAQUIN 750MG/150ML 750 MG/150 ML BAG IV SCH (09:48)
[2018-10-21] MEDS: LASIX IV SCH (09:48)
[2018-10-21] MEDS: HumaLOG SUB-Q SCH ×4 (09:50→22:57)
[2018-10-21] MEDS ORDERED: LASIX PO SCH (10:00)
[2018-10-21] MEDS ORDERED: PNEUMOVAX 23 IM ONE (12:00)
--- NOTE | 2018-10-21 14:06 | Progress Note ---
Assessment and Plan /Recurrent community acquired Pneumonia: b/l infiltrates?? vs pulmonary edema on CT - need to r/o other underlying lung disease vs cardiac disease cont Empiric antibiotics Follow cultures, oxygen titrated to O2 sats more than 90% Supportive care, consult pulmonary CTA CHEST WITH CONTRAST No evidence for pulmonary embolus. Bilateral lung infiltrates most consistent with pulmonary edema. Infectious infiltrates or atypical pneumonia could also be considered. Please correlate with the patient's clinical presentation. /Acute bronchitis; bronchodilators as needed Cough medicine, antihistamines if needed /Type 2 diabetes mellitus; moderate control Accu-Chek sliding scale coverage and ADA diet and insulin Check hemoglobin A1c, diabetic education consult /Elevated BNP/pulmonary edema on CT chest ?, IV Lasix follow Echocardiogram for LV function ejection fraction /Hypertension; moderate control Continue current antihypertensives and when necessary meds /Morbid obesity; BMI 53.3; tries dietary modification and exercise as tolerated And weight reduction when medically stable /DVT prophylaxis; Lovenox closely monitor and adjust the management as needed Disposition; follow clinically, discharged home when stable Hospitalist physical: GENERAL: well-developed and well-nourished lying on bed appeared to be in no discomfort. HEENT: Normocephalic. Atraumatic. No conjunctival congestion or icterus. Patient has moist mucous membranes. NECK: Supple. Trachea midline. CHEST/LUNGS: Clear to auscultated bilaterally, breathing nonlabored. No wheezes crackles or rhonchi. HEART/CARDIOVASCULAR: Regular in rate and rhythm. S1 and S2 positive. ABDOMEN: Abdomen is soft, nontender. Patient has normal bowel sounds. SKIN: There is no rash. Warm and dry. NEURO: No focal motor deficit. Follows command. MUSCULOSKELETAL: No joint effusion or tenderness. EXTRIMITY: No edema, no cyanosis or clubbing. PSYCH: Cooperative. Subjective Date of service: 10/21/18 Interval history: Patient seen and examined. Medical records and medication list reviewed. No acute event overnight noted by the RN. Patient continued to complain of shortness of breath and cough. Patient is tolerating diet. Discussed plan of care at bedside with patient. Objective - Constitutional Vitals: Vital Signs - 12hr 10/21/18 10/21/18 10/21/18 05:26 06:56 12:30 Temperature 98.5 F 98.5 F Pulse Rate 99 H 92 H 92 H Respiratory 20 18 Rate Blood Pressure 156/103 154/103 135/91 O2 Sat by Pulse 98 95 Oximetry - Labs CBC & Chem 7: 10/20/18 05:14 10/20/18 05:14 Labs: Abnormal lab results 10/20/18 10/20/18 10/21/18 Range/Units 17:22 21:45 08:20 POC Glucose 290 H 302 H 193 H (70-105)
[2018-10-21] MEDS: LOVENOX SUB-Q SCH (21:22)
[2018-10-22] MEDS: ULTRAM PO PRN ×2 (05:48→17:59)
[2018-10-22] MEDS: ROBITUSSIN AC PO PRN (06:32)
[2018-10-22] MEDS: HumaLOG SUB-Q SCH ×4 (08:27→22:17)
[2018-10-22] MEDS: IBUPROFEN PO PRN ×2 (08:28→15:55)
[2018-10-22] MEDS: LEVAQUIN 750MG/150ML 750 MG/150 ML BAG IV SCH (09:39)
[2018-10-22] MEDS: LASIX IV SCH ×2 (09:40→17:59)
[2018-10-22] MEDS: NORMODYNE PO SCH ×2 (09:40→22:16)
--- NOTE | 2018-10-22 10:50 | Progress Note ---
Assessment and Plan /New onset CHFrEF Elevated BNP/pulmonary edema on CT chest, cont IV Lasix reduced EF on Echocardiogram, consulted cardiology started on aspirin and statin, plan for cardiac cath tomorrow /Recurrent community acquired Pneumonia b/l infiltrates vs pulmonary edema on CT - need to r/o other underlying lung disease vs cardiac disease cont Empiric antibiotics for now oxygen titrated to O2 sats more than 90%, Supportive care, consulted pulmonary /Acute Respiratory failure, POA likely from CHF exacerbation and underlying b/l PNA - cont abx, lasix, nebs, wean off O2 as tolerated CTA CHEST WITH CONTRAST No evidence for pulmonary embolus. Bilateral lung infiltrates most consistent with pulmonary edema. Infectious infiltrates or atypical pneumonia could also be considered. Please correlate with the patient's clinical presentation. /SIRS, POA - likely from PNA and CHf exacerbation, patient presented with tachycardia/tachypnea /Acute bronchitis; bronchodilators as needed Cough medicine, antihistamines if needed /Type 2 diabetes mellitus; moderate control Accu-Chek sliding scale coverage and ADA diet and insulin Check hemoglobin A1c, diabetic education consult /Hypertension; moderate control Continue current antihypertensives and when necessary meds /Morbid obesity; BMI 53.3; counselled on dietary modification as tolerated /DVT prophylaxis; Lovenox closely monitor and adjust the management as needed Disposition; follow clinically, discharged home when stable Hospitalist physical: GENERAL: well-developed and well-nourished lying on bed appeared to be in no discomfort. HEENT: Normocephalic. Atraumatic. No conjunctival congestion or icterus. Patient has moist mucous membranes. NECK: Supple. Trachea midline. CHEST/LUNGS: Clear to auscultated bilaterally, breathing nonlabored. No wheezes crackles or rhonchi. HEART/CARDIOVASCULAR: Regular in rate and rhythm. S1 and S2 positive. ABDOMEN: Abdomen is soft, nontender. Patient has normal bowel sounds. SKIN: There is no rash. Warm and dry. NEURO: No focal motor deficit. Follows command. MUSCULOSKELETAL: No joint effusion or tenderness. EXTRIMITY: No edema, no cyanosis or clubbing. PSYCH: Cooperative. Subjective Date of service: 10/22/18 Interval history: Patient seen and examined. Medical records and medication list reviewed. No acute event overnight noted by the RN. Patient states her breathing improved. Patient is tolerating diet. Discussed plan of care at bedside with patient. Objective - Constitutional Vitals: Vital Signs - 12hr 10/22/18 10/22/18 10/22/18 00:23 02:36 05:41 Temperature 98.2 F 98.5 F Pulse Rate 88 92 H Respiratory 21 20 Rate Blood Pressure 135/86 145/103 O2 Sat by Pulse 93 98 94 Oximetry 10/22/18 10/22/18 05:48 06:48 Temperature Pulse Rate Respiratory 17 17 Rate Blood Pressure O2 Sat by Pulse Oximetry - Labs CBC & Chem 7: 10/20/18 05:14 10/23/18 05:01 Labs: Abnormal lab results 10/21/18 10/21/18 10/21/18 Range/Units 12:39 15:48 21:41 POC Glucose 230 H 284 H 242 H (70-105) 10/22/18 Range/Units 07:46 POC Glucose 253 H (70-105)
[2018-10-22] MEDS: HALFPRIN EC PO SCH (11:20)
--- NOTE | 2018-10-22 12:05 | Consultation ---
<DALJIT BENSON - Last Filed: 10/22/18 12:20> History of Present Illness Consult date: 10/22/18 Consult reason: congestive heart failure History of present illness: This is a 33 year old woman whom has had multiple ER visits for shortness of breath over the last month. Patient was diagnosed with pneumonia, treated with antibiotics and sent home with recommendations to followup with her pcp. She returns with shortness of breath and admitted with suspected pneumonia. Patient denies fever and she has a normal WBC. A chest x-ray shows acute pulmonary edema. Chest CTA scan is negative for PE. Further evaluation with an echocardiogram reveals a severely decreased left ventricular systolic function 20-25%. The duration of this cardiomyopathy is uncertain. A Cardiac consultation has been requested for further evaluation and management of CHF. Patient gives a history of Diabetes and chronic Hypertension. She denies history of CHF. She reports a normal echocardiogram and stress thallium test done a year ago in [place]. Records are unavailable for cardiac review. Today, the patient reports her breathing is better. [facility] Lower extremity edema has resolved. Patient denies chest pain and palpitations. Her presenting ECG is sinus tachycardia, no acute ischemic changes. Past History Past Medical History: diabetes, hypertension Past Surgical History: (x2), Other (D&C) Social history: lives with family. denies: smoking, alcohol abuse, prescription drug abuse Family history: hypertension Medications and Allergies Allergies Allergy/AdvReac Type Severity Reaction Status Date / Time No Known Allergies Allergy Verified 11/22/14 06:01 Home Medications Medication Instructions Recorded Confirmed Last Taken Type Metformin HCl [Metformin] 1 tab PO BID 11/04/15 10/20/18 07/09/18 22:00 History Ibuprofen [Motrin 800 MG tab] 800 mg PO Q6H PRN #30 tablet 05/20/18 10/20/18 Unknown Rx ALBUTEROL Inhaler (OR & NICU) 2 puff IH QID PRN #1 inhalation 09/22/18 10/20/18 Unknown Rx [ProAir HFA Inhaler] Ondansetron [Zofran Odt] 4 mg PO Q8HR PRN #14 tab.rapdis 10/18/18 10/20/18 Unknown Rx traMADol [Ultram 50 MG tab] 50 mg PO Q4HR PRN #14 tablet 10/18/18 10/20/18 Unknown Rx Furosemide [Lasix] 20 mg PO QDAY 10/20/18 10/20/18 Unknown History Labetalol [Labetalol 100mg TAB] 100 mg PO BID 10/20/18 10/20/18 Unknown History Lispro Insulin [HumaLOG] 35 unit SQ AC 10/20/18 10/20/18 Unknown History Active Meds: Active Medications Albuterol (Proventil) 2.5 mg IH Q6HRT PRN PRN Reason: Shortness Of Breath Aspirin (Halfprin Ec) 81 mg PO QDAY [facility] Last Admin: 10/22/18 11:20 Dose: 81 mg Documented by: Atorvastatin Calcium (Lipitor) 40 mg PO QHS [facility] Carvedilol (Coreg) 6.25 mg PO BID [facility] Enoxaparin Sodium (Lovenox) 40 mg SUB-Q QDAY@2200 [facility] Last Admin: 10/21/18 21:22 Dose: 40 mg Documented by: Furosemide (Lasix) 40 mg IV 0600,1800 [facility] Levofloxacin/Dextrose (Levaquin 750mg/150ml) 750 mg in 150 mls @ 100 mls/hr IV Q24HR [facility]; Protocol Last Admin: 10/22/18 09:39 Dose: 100 mls/hr Documented by: Ibuprofen (Ibuprofen) 800 mg PO Q6H PRN PRN Reason: Pain, Mild (1-3) Last Admin: 10/22/18 08:28 Dose: 800 mg Documented by: Insulin Human Isoph/Insulin Regular (Humulin 70/30) 25 unit SUB-Q BIDDIAB [facility] Last Admin: 10/22/18 08:27 Dose: 25 unit Documented by: Insulin Human Lispro (Humalog) 0 unit SUB-Q ACHS [facility]; Protocol Last Admin: 10/22/18 08:27 Dose: 3 unit Documented by: Labetalol HCl (Normodyne) 100 mg PO BID [facility] Last Admin: 10/22/18 09:40 Dose: 100 mg Documented by: Lisinopril (Zestril) 5 mg PO QDAY [facility] Pseudoephedrine/Acetam/Chlorphenir (Robitussin Ac) 15 ml PO Q4H PRN PRN Reason: Cough Last Admin: 10/22/18 06:32 Dose: 15 ml Documented by: Spironolactone (Aldactone) 25 mg PO QDAY [facility] Tramadol HCl (Ultram) 50 mg PO Q4HR PRN PRN Reason: Pain, Moderate (4-6) Last Admin: 10/22/18 05:48 Dose: 50 mg Documented by: Physical Examination Vital Signs Temp Pulse Resp BP Pulse Ox 97.7 F 118 H 22 188/121 89 10/20/18 04:31 10/20/18 04:31 10/20/18 04:31 10/20/18 04:31 10/20/18 04:31 General appearance: no acute distress, obese HEENT: Positive: PERRL Cardiac: Positive: Reg Rate and Rhythm Lungs: Positive: Decreased Breath Sounds Neuro: Positive: Grossly Intact Extremities: Absent: edema Results 10/20/18 05:14 10/20/18 05:14 Assessment and Plan Acute pulmonary edema Acute systolic heart failure echocardiogram reveals a severely decreased left ventricular systolic function 20-25%. The duration is uncertain. Hypertension Diabetes Recommendations: Medical management of systolic heart failure to include Entresto, beta blockers, IV diuretics, aldactone and oral antiplatelet therapy. We will proceed with a cardiac cath tomorrow morning. Patient agrees with plan. <PURNIMA ESCALANTE - Last Filed: 10/22/18 12:30> Medications and Allergies Active Meds: Active Medications Albuterol (Proventil) 2.5 mg IH Q6HRT PRN PRN Reason: Shortness Of Breath Aspirin (Halfprin Ec) 81 mg PO QDAY [facility] Last Admin: 10/22/18 11:20 Dose: 81 mg Documented by: Atorvastatin Calcium (Lipitor) 40 mg PO QHS [facility] Carvedilol (Coreg) 3.125 mg PO BID [facility] Enoxaparin Sodium (Lovenox) 40 mg SUB-Q QDAY@2200 [facility] Last Admin: 10/21/18 21:22 Dose: 40 mg Documented by: Furosemide (Lasix) 40 mg IV 0600,1800 [facility] Levofloxacin/Dextrose (Levaquin 750mg/150ml) 750 mg in 150 mls @ 100 mls/hr IV Q24HR [facility]; Protocol Last Admin: 10/22/18 09:39 Dose: 100 mls/hr Documented by: Ibuprofen (Ibuprofen) 800 mg PO Q6H PRN PRN Reason: Pain, Mild (1-3) Last Admin: 10/22/18 08:28 Dose: 800 mg Documented by: Insulin Human Isoph/Insulin Regular (Humulin 70/30) 25 unit SUB-Q BIDDIAB [facility] Last Admin: 10/22/18 08:27 Dose: 25 unit Documented by: Insulin Human Lispro (Humalog) 0 unit SUB-Q ACHS [facility]; Protocol Last Admin: 10/22/18 08:27 Dose: 3 unit Documented by: Labetalol HCl (Normodyne) 100 mg PO BID [facility] Last Admin: 10/22/18 09:40 Dose: 100 mg Documented by: Pseudoephedrine/Acetam/Chlorphenir (Robitussin Ac) 15 ml PO Q4H PRN PRN Reason: Cough Last Admin: 10/22/18 06:32 Dose: 15 ml Documented by: Spironolactone (Aldactone) 12.5 mg PO QDAY [facility] Tramadol HCl (Ultram) 50 mg PO Q4HR PRN PRN Reason: Pain, Moderate (4-6) Last Admin: 10/22/18 05:48 Dose: 50 mg Documented by: Physical Examination Vital Signs Temp Pulse Resp BP Pulse Ox 97.7 F 118 H 22 188/121 89 10/20/18 04:31 10/20/18 04:31 10/20/18 04:31 10/20/18 04:31 10/20/18 04:31 Results 10/20/18 05:14 10/20/18 05:14 Assessment and Plan At this time recommend initiation of maximization of medical therapy for severe cardiomyopathy and congestive heart failure, including a chest oh, carvedilol, I V Lasix, and spironolactone. Plan for left and right heart catheterization tomorrow to determine presence of ischemia.
--- NOTE | 2018-10-22 14:17 | Consultation ---
History of Present Illness Consult date: 10/22/18 Reason for consult: dyspnea, cough, chest pain, pneumonia History of present illness: PULMONARY AND CRITICAL CARE CONSULTATION DR. JIN Chapa THANK YOU FOR ASKING US TO PARTICIPATE IN THE CARE OF THIS PATIENT. 32-year-old morbidly obese -[place] female patient with significant history of type 2 diabetes mellitus hypertension recurrent pneumonias in the past presented to the emergency room with worsening shortness of breath and productive cough of 2-3 days duration Patient had similar symptoms in June for which she was admitted and treated, patient also had a couple of ER visits Denies any fever no nausea vomiting or abdominal pain Patient has no history of bronchial asthma or COPD, history of congestive heart failure Has ongoing tobacco use Initial evaluation on chest x-ray and CTA chest bilateral pneumonia Chest xray reported improving bilateral lower lobe infiltrates. Angio CT of chest reported No evidence for pulmonary embolus. Bilateral lung infiltrates most consistent with pulmonary edema. Infectious infiltrates or atypical pneumonia could also be considered. Please correlate with the patient's clinical presentation. Patient alert, awake and on 3 litres O2. O2 saturation 98%. Patient has history of smoking 1 pack lasts 2 weeks. Smoking for 10 years. Counselled to stop smoking. Denies alcohol or drug abuse. Marrfied and has children. Patient house . No known drug allergies. Patient Morbidly Obese. Patient has history of hypertension, CHF and Diabes. Past History Past Medical History: diabetes, heart failure, hypertension Past Surgical History: (x2), Other (D&C) Social history: lives with family. denies: smoking, alcohol abuse, prescription drug abuse Family history: hypertension Medications and Allergies Allergies Allergy/AdvReac Type Severity Reaction Status Date / Time No Known Allergies Allergy Verified 11/22/14 06:01 Home Medications Medication Instructions Recorded Confirmed Last Taken Type Metformin HCl [Metformin] 1 tab PO BID 11/04/15 10/20/18 07/09/18 22:00 History Ibuprofen [Motrin 800 MG tab] 800 mg PO Q6H PRN #30 tablet 05/20/18 10/20/18 Unknown Rx ALBUTEROL Inhaler (OR & NICU) 2 puff IH QID PRN #1 inhalation 09/22/18 10/20/18 Unknown Rx [ProAir HFA Inhaler] Ondansetron [Zofran Odt] 4 mg PO Q8HR PRN #14 tab.rapdis 10/18/18 10/20/18 Unknown Rx traMADol [Ultram 50 MG tab] 50 mg PO Q4HR PRN #14 tablet 10/18/18 10/20/18 Unknown Rx Furosemide [Lasix] 20 mg PO QDAY 10/20/18 10/20/18 Unknown History Labetalol [Labetalol 100mg TAB] 100 mg PO BID 10/20/18 10/20/18 Unknown History Lispro Insulin [HumaLOG] 35 unit SQ AC 10/20/18 10/20/18 Unknown History Active Meds: Active Medications Albuterol (Proventil) 2.5 mg IH Q6HRT PRN PRN Reason: Shortness Of Breath Aspirin (Halfprin Ec) 81 mg PO QDAY [facility] Last Admin: 10/22/18 11:20 Dose: 81 mg Documented by: Atorvastatin Calcium (Lipitor) 40 mg PO QHS [facility] Carvedilol (Coreg) 3.125 mg PO BID [facility] Enoxaparin Sodium (Lovenox) 40 mg SUB-Q QDAY@2200 [facility] Last Admin: 10/21/18 21:22 Dose: 40 mg Documented by: Furosemide (Lasix) 40 mg IV 0600,1800 [facility] Levofloxacin/Dextrose (Levaquin 750mg/150ml) 750 mg in 150 mls @ 100 mls/hr IV Q24HR [facility]; Protocol Last Admin: 10/22/18 09:39 Dose: 100 mls/hr Documented by: Ibuprofen (Ibuprofen) 800 mg PO Q6H PRN PRN Reason: Pain, Mild (1-3) Last Admin: 10/22/18 08:28 Dose: 800 mg Documented by: Insulin Human Isoph/Insulin Regular (Humulin 70/30) 25 unit SUB-Q BIDDIAB [facility] Last Admin: 10/22/18 08:27 Dose: 25 unit Documented by: Insulin Human Lispro (Humalog) 0 unit SUB-Q ACHS [facility]; Protocol Last Admin: 10/22/18 13:07 Dose: 3 unit Documented by: Labetalol HCl (Normodyne) 100 mg PO BID [facility] Last Admin: 10/22/18 09:40 Dose: 100 mg Documented by: Pseudoephedrine/Acetam/Chlorphenir (Robitussin Ac) 15 ml PO Q4H PRN PRN Reason: Cough Last Admin: 10/22/18 06:32 Dose: 15 ml Documented by: Spironolactone (Aldactone) 12.5 mg PO QDAY NILAM Tramadol HCl (Ultram) 50 mg PO Q4HR PRN PRN Reason: Pain, Moderate (4-6) Last Admin: 10/22/18 05:48 Dose: 50 mg Documented by: Review of Systems All systems: negative Physical Examination Vital signs: Vital Signs Temp Pulse Resp BP Pulse Ox 97.7 F 118 H 22 188/121 89 10/20/18 04:31 10/20/18 04:31 10/20/18 04:31 10/20/18 04:31 10/20/18 04:31 General appearance: no acute distress, alert, other (Morbidly Obese.) Eyes: non-icteric ENT: oropharynx moist Neck: supple, no JVD Ascultation: Bilateral: diminished breath sounds Cardiovascular: regular rate and rhythm Gastrointestinal: normoactive bowel sounds, soft, non-tender Integumentary: normal Extremities: no cyanosis, no edema Musculoskeletal: no deformities Gait: poor gait normal mental status, non-focal exam, pupils equal and round, CN II-XII normal mood appropriate Results - Laboratory Findings CBC and BMP: 10/20/18 05:14 10/20/18 05:14 PT/INR, D-dimer PT 12.9 Sec. (12.2-14.9) 10/20/18 05:14 INR 1.00 (0.87-1.13) 10/20/18 05:14 273.56 ng/mlDDU (0-234) H 10/20/18 06:25 Abnormal lab findings: Abnormal Labs 10/20/18 10/20/18 10/20/18 05:14 05:14 05:14 MCH 27 L Eos % (Auto) 4.5 H Eos # 0.5 H D-Dimer Sodium 135 L Creatinine 0.6 L Glucose 307 H POC Glucose Lactic Acid 2.30 H* NT-Pro-B Natriuret Pep Albumin 3.8 L 10/20/18 10/20/18 10/20/18 06:25 06:25 08:49 MCH Eos % (Auto) Eos # D-Dimer 273.56 H Sodium Creatinine Glucose POC Glucose 255 H Lactic Acid NT-Pro-B Natriuret Pep 536.3 H Albumin 10/20/18 10/20/18 10/20/18 12:25 17:22 21:45 MCH Eos % (Auto) Eos # D-Dimer Sodium Creatinine Glucose POC Glucose 292 H 290 H 302 H Lactic Acid NT-Pro-B Natriuret Pep Albumin 10/21/18 10/21/18 10/21/18 08:20 12:39 15:48 MCH Eos % (Auto) Eos # D-Dimer Sodium Creatinine Glucose POC Glucose 193 H 230 H 284 H Lactic Acid NT-Pro-B Natriuret Pep Albumin 10/21/18 10/22/18 10/22/18 21:41 07:46 11:21 MCH Eos % (Auto) Eos # D-Dimer Sodium Creatinine Glucose POC Glucose 242 H 253 H 234 H Lactic Acid NT-Pro-B Natriuret Pep Albumin - Diagnostic Findings Chest x-ray: report reviewed (Bilateral lower lobe consolidations.), image revie wed CT scan - chest: report reviewed, image reviewed Additional studies: CTA of chest done on 10/20/18 IMPRESSION: No evidence for pulmonary embolus. Bilateral lung infiltrates most consistent with pulmonary edema. Infectious infiltrates or atypical pneumonia could also be considered. Please correlate with the patient's clinical presentation. Assessment and Plan 32-year-old morbidly obese -[place] female patient with significant history of type 2 diabetes mellitus hypertension recurrent pneumonias in the past presented to the emergency room with worsening shortness of breath and productive cough of 2-3 days duration Patient had similar symptoms in June for which she was admitted and treated, patient also had a couple of ER visits Denies any fever no nausea vomiting or abdominal pain Patient has no history of bronchial asthma or COPD, history of congestive heart failure Has ongoing tobacco use Initial evaluation on chest x-ray and CTA chest bilateral pneumonia Chest xray reported improving bilateral lower lobe infiltrates. Angio CT of chest reported No evidence for pulmonary embolus. Bilateral lung infiltrates most consistent with pulmonary edema. Infectious infiltrates or atypical pneumonia could also be considered. Please correlate with the patient's clinical presentation. Patient alert, awake and on 3 litres O2. O2 saturation 98%. Patient has history of smoking 1 pack lasts 2 weeks. Smoking for 10 years. Counselled to stop smoking. Denies alcohol or drug abuse. Marrfied and has children. Patient house . No known drug allergies. Patient Morbidly Obese. Patient has history of hypertension, CHF and Diabes. - Patient Problems (1) Bilateral pneumonia Current Visit: Yes Status: Acute Qualifiers: Pneumonia type: due to unspecified organism Lung location: unspecified part of lung Qualified Code(s): J18.9 - Pneumonia, unspecified organism Plan to address problem: Patient is on Levaquin. (2) Acute respiratory failure Current Visit: No Status: Acute Plan to address problem: O2 3 litres via nasal canula. Albuterol/atrovent aerosol treatments q 6 hours. Continue S/C Lovenox. Continue levaquin. Recommend GI prophylaxis. ABGs on room air. (3) Insulin dependent diabetes mellitus Current Visit: No Status: Acute Plan to address problem: Management as per primary care. (4) Morbid obesity Current Visit: No Status: Acute Plan to address problem: Recommend exercise and diet and to loose weight. Recommend sleep study as out patient.
[2018-10-22] MEDS ORDERED: TYLENOL PO PRN (18:49)
[2018-10-22] MEDS ORDERED: COREG PO SCH (22:00)
[2018-10-22] MEDS: COREG PO SCH (22:16)
[2018-10-22] MEDS: LOVENOX SUB-Q SCH (22:16)
[2018-10-22] MEDS: ENTRESTO 24 - 26 MG PO SCH (22:16)
[2018-10-23 05:45] LABS: INR 1.07 (0.87-1.13)
[2018-10-23 05:54] LABS: BUN/Creatinine Ratio 14; Blood Urea Nitrogen 10 mg/dL (7-17); Calcium 9.2 mg/dL (8.4-10.2); Hemolysis Index 3
[2018-10-23] MEDS: LASIX IV SCH (06:04)
[2018-10-23] MEDS: NORMODYNE PO SCH (09:18)
[2018-10-23] MEDS: COREG PO SCH (09:19)
[2018-10-23] MEDS: HumaLOG SUB-Q SCH ×2 (09:20→13:03)
[2018-10-23] MEDS: LEVAQUIN 750MG/150ML 750 MG/150 ML BAG IV SCH (09:21)
[2018-10-23] MEDS: HALFPRIN EC PO SCH (09:49)
[2018-10-23] MEDS ORDERED: ZESTRIL PO SCH (10:00)
[2018-10-23] MEDS ORDERED: ALDACTONE PO SCH ×2 (10:00)
[2018-10-23] MEDS ORDERED: ZOFRAN IV PRN (11:00)
--- NOTE | 2018-10-23 12:06 | Progress Note ---
Assessment and Plan Acute systolic heart failure echocardiogram reveals a severely decreased left ventricular systolic function 20-25%. The duration is uncertain. MRSA of the nares Hypertension Diabetes Recommend: Continue medical management of systolic heart failure to include Entresto, beta blockers, IV diuretics, aldactone and oral antiplatelet therapy. Subjective Date of service: 10/23/18 Interval history: Patient has no complaints. She reports her breathing is better. Planned cardiac cath has been canceled due to positive MRSA of the nares. Objective Vital Signs Temp Pulse Resp BP BP Pulse Ox 10/23/18 10:00 99 10/23/18 09:19 140/101 10/23/18 09:18 89 140/101 10/23/18 06:08 92 H 147/92 10/23/18 05:23 98.5 F 88 20 149/106 95 10/22/18 23:40 98.4 F 95 H 20 150/102 100 10/22/18 22:16 84 145/92 10/22/18 17:03 98.0 F 94 H 18 136/85 100 - Physical Examination General: No Apparent Distress HEENT: Positive: PERRL Cardiac: Positive: Reg Rate and Rhythm Lungs: Positive: Decreased Breath Sounds Neuro: Positive: Grossly Intact Extremities: Absent: edema - Labs and Meds Coagulation 10/23/18 Range/Units 05:01 PT 13.6 (12.2-14.9) Sec. INR 1.07 (0.87-1.13) Comprehensive Metabolic Panel 10/23/18 Range/Units 05:01 Sodium 137 (137-145) mmol/L Potassium 3.8 (3.6-5.0) mmol/L Chloride 102.2 (98-107) mmol/L Carbon Dioxide 24 (22-30) mmol/L BUN 10 (7-17) mg/dL Creatinine 0.7 (0.7-1.2) mg/dL Glucose 278 H (65-100) mg/dL Calcium 9.2 (8.4-10.2) mg/dL
[2018-10-23 12:57] VITALS: BP 115/78
[2018-10-23] MEDS: ENTRESTO 24 - 26 MG PO SCH (13:03)
--- NOTE | 2018-10-23 13:21 | Progress Note ---
Assessment and Plan Acute Hypoxemic Respiratory Failure Bilateral Pneumonia (Recurrent) vs Pulmonary Edema Morbid Obesity (BMI 53.3) New onset CHFrEF SIRS, POA Type 2 diabetes mellitus Hypertension (Suspect bilateral pulmonary edema over recurrent pneumonia - supplemental oxygen as needed to keep O2 sats > 90% - complete empiric Levaquin monotherapy - prn BIPAP - continue bronchodilators with pulmonary hygiene per RT - optimize cardiac status / CHF medical management per cardiology - weight loss counseled - tobacco abstinence - outpatient sleep clinic evaliuation - glycemic control with SSI for target BG < 180 mg/dl - GI prophylaxis - VTE prophylaxis with lovenox - continue other care per attending Subjective Date of service: 10/23/18 Principal diagnosis: Ac Hypoxemic Resp Failure; Be. pulm infiltrates; Morbid Obesity; HFrEF; DM Interval history: Patient is seen today for: Acute Hypoxemic Respiratory Failure; Bilateral Pneumonia (Recurrent) vs Pulmonary Edema; Morbid Obesity (BMI 53.3); New onset HFrEF; SIRS; Type 2 diabetes mellitus; Hypertension Seen and examined at bedside; 24hour events reviewed; nursing and respiratory care staff consulted; no adverse overnight events reported to me; resting peacefully in bed; denies acute chest pains or palpitations; heart cath cancelled; No N/V/F/C Objective Vital Signs - 12hr 10/23/18 10/23/18 10/23/18 05:23 06:08 09:12 Temperature 98.5 F Pulse Rate 88 92 H 88 Respiratory 20 20 Rate Blood Pressure 149/106 140/101 Blood Pressure 147/92 [Right] O2 Sat by Pulse 95 94 Oximetry 10/23/18 10/23/18 10/23/18 09:18 09:19 10:00 Temperature Pulse Rate 89 Respiratory Rate Blood Pressure 140/101 140/101 Blood Pressure [Right] O2 Sat by Pulse 99 Oximetry 10/23/18 11:17 Temperature 98.3 F Pulse Rate 106 H Respiratory 22 Rate Blood Pressure 115/78 Blood Pressure [Right] O2 Sat by Pulse 97 Oximetry Constitutional: no acute distress, alert, other (Morbidly Obese.) Eyes: non-icteric ENT: oropharynx moist Neck: supple, no lymphadenopathy, no JVD, other (large neck circumference) Effort: mildly labored Ascultation: Bilateral: clear, diminished breath sounds Percussion: Bilateral: not dull Cardiovascular: regular rate and rhythm Gastrointestinal: normoactive bowel sounds, soft, non-tender, non-distended Integumentary: normal Extremities: no cyanosis, no edema, pulses normal, no ischemia or petechiae Neurologic: normal mental status, non-focal exam, pupils equal and round, CN II- XII normal Psychiatric: mood appropriate, affect normal CBC and BMP: 10/20/18 05:14 10/23/18 05:01 ABG, PT/INR, D-dimer: PT/INR, D-dimer PT 13.6 Sec. (12.2-14.9) 10/23/18 05:01 INR 1.07 (0.87-1.13) 10/23/18 05:01 273.56 ng/mlDDU (0-234) H 10/20/18 06:25 Abnormal lab findings: Abnormal Labs 10/20/18 10/20/18 10/20/18 05:14 05:14 05:14 MCH 27 L Eos % (Auto) 4.5 H Eos # 0.5 H D-Dimer Sodium 135 L Creatinine 0.6 L Glucose 307 H POC Glucose Lactic Acid 2.30 H* NT-Pro-B Natriuret Pep Albumin 3.8 L 10/20/18 10/20/18 10/20/18 06:25 06:25 08:49 MCH Eos % (Auto) Eos # D-Dimer 273.56 H Sodium Creatinine Glucose POC Glucose 255 H Lactic Acid NT-Pro-B Natriuret Pep 536.3 H Albumin 10/20/18 10/20/18 10/20/18 12:25 17:22 21:45 MCH Eos % (Auto) Eos # D-Dimer Sodium Creatinine Glucose POC Glucose 292 H 290 H 302 H Lactic Acid NT-Pro-B Natriuret Pep Albumin 10/21/18 10/21/18 10/21/18 08:20 12:39 15:48 MCH Eos % (Auto) Eos # D-Dimer Sodium Creatinine Glucose POC Glucose 193 H 230 H 284 H Lactic Acid NT-Pro-B Natriuret Pep Albumin 10/21/18 10/22/18 10/22/18 21:41 07:46 11:21 MCH Eos % (Auto) Eos # D-Dimer Sodium Creatinine Glucose POC Glucose 242 H 253 H 234 H Lactic Acid NT-Pro-B Natriuret Pep Albumin 10/22/18 10/22/1819 16:38 21:20 05:01 MCH Eos % (Auto) Eos # D-Dimer Sodium Creatinine Glucose 278 H POC Glucose 261 H 234 H Lactic Acid NT-Pro-B Natriuret Pep Albumin 10/23/18 10/23/18 08:06 11:26 MCH Eos % (Auto) Eos # D-Dimer Sodium Creatinine Glucose POC Glucose 214 H 251 H Lactic Acid NT-Pro-B Natriuret Pep Albumin CT scan - chest: report reviewed Allied health notes reviewed: nursing
--- NOTE | 2018-10-23 15:21 | Discharge Summary ---
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 Reason for admission: SOB Condition: Fair Pertinent studies: CXR Chest CTA Hospital course: Discharge diagnosis and management: /New onset CHFrEF ~ 20% Elevated BNP/pulmonary edema on CT chest, Placed on IV Lasix reduced EF on Echocardiogram, consulted cardiology started on aspirin and statin, plan for cardiac cath as outpt /Recurrent community acquired Pneumonia b/l infiltrates vs pulmonary edema on CT - need to r/o other underlying lung disease vs cardiac disease cont Empiric antibiotics for now oxygen titrated to O2 sats more than 90%, Supportive care, consulted pulmonary /Acute Respiratory failure, POA likely from CHF exacerbation and underlying b/l PNA - cont abx, lasix, nebs, wean off O2 as tolerated CTA CHEST WITH CONTRAST No evidence for pulmonary embolus. Bilateral lung infiltrates most consistent with pulmonary edema. Infectious infiltrates or atypical pneumonia could also be considered. Please correlate with the patient's cli nical presentation. /SIRS, POA - likely from PNA and CHf exacerbation, patient presented with tachycardia/tachypnea /Acute bronchitis; bronchodilators as needed Cough medicine, antihistamines if needed /Type 2 diabetes mellitus; moderate control Accu-Chek sliding scale coverage and ADA diet and insulin Check hemoglobin A1c, diabetic education consult /Hypertension; moderate control Continue current antihypertensives and when necessary meds /Morbid obesity; BMI 53.3; counselled on dietary modification as tolerated /DVT prophylaxis; Lovenox closely monitor and adjust the management as needed Disposition; follow clinically, discharged home when stable Hospitalist physical: GENERAL: well-developed and well-nourished AAF lying on bed appeared to be in no discomfort. HEENT: Normocephalic. Atraumatic. No conjunctival congestion or icterus. Patient has moist mucous membranes. NECK: Supple. Trachea midline. CHEST/LUNGS: Clear to auscultated bilaterally, breathing nonlabored. No wheezes crackles or rhonchi. HEART/CARDIOVASCULAR: Regular in rate and rhythm. S1 and S2 positive. ABDOMEN: Abdomen is soft, nontender. Patient has normal bowel sounds. SKIN: There is no rash. Warm and dry. NEURO: No focal motor deficit. Follows command. MUSCULOSKELETAL: No joint effusion or tenderness. EXTRIMITY: No edema, no cyanosis or clubbing. PSYCH: Cooperative. Disposition: DC/[place]-06 HOME [facility] Time spent for discharge: 34 minutes Core Measure Documentation - Palliative Care Palliative Care/ Comfort Measures: Not Applicable - Core Measures Any of the following diagnoses?: heart failure - Heart Failure Discharge Requirements LILIAN/ARB for LVSD if EF <40%: Yes Beta tete at discharge: Yes Exam - Constitutional Vitals: Temp Pulse Resp BP Pulse Ox 98.3 F 106 H 22 115/78 97 10/23/18 11:17 10/23/18 11:17 10/23/18 11:17 10/23/18 11:17 10/23/18 11:17 Plan Activity: advance as tolerated Weight Bearing Status: Non-Weight Bearing Diet: low fat, low salt Follow up with: PRIMARY CAREMD [Primary Care Provider] - 3-5 Days NAUN LANGSTON MD [Staff Physician] - 7 Days CECILE AUSTIN MD [Staff Physician] - 7 Days Prescriptions: AtorvaSTATin [Lipitor] 40 mg PO QHS #30 tablet Spironolactone [Aldactone] 12.5 mg PO QDAY #30 tablet Aspirin EC 81 mg PO QDAY #30 tablet Sacubitril/Valsartan [Entresto 24 - 26 mg] 1 each PO BID #30 tablet Labetalol [Labetalol 100mg TAB] 200 mg PO BID #60 tablet Furosemide [Lasix TAB] 40 mg PO QDAY #60 tablet levoFLOXacin [Levaquin] 750 mg PO QDAY #3 tablet traMADol [Ultram 50 MG tab] 50 mg PO Q4HR PRN #14 tablet PRN Reason: Pain Ondansetron [Zofran ODT TAB] 4 mg PO Q8HR PRN #14 tab.rapdis PRN Reason: Nausea And Vomiting
== END 2018-10-23 16:40 | disposition home health service (06) | DRG 291 ==
LOC: ED 04:28 → 3A 09:07
PROVIDERS: ADMIT Internal Medicine; ATTEND Internal Medicine
PROC: 3E0234Z Introduction of Serum, Toxoid and Vaccine into Muscle, Percutaneous Approach (ICD-10-PCS; principal; 2018-10-21)
DX: I11.0 Hypertensive heart disease with heart failure (principal); J18.9 Pneumonia, unspecified organism; J96.01 Acute respiratory failure with hypoxia; I50.21 Acute systolic (congestive) heart failure; Z68.43 Body mass index [BMI] 50.0-59.9, adult; J20.9 Acute bronchitis, unspecified; E66.01 Morbid (severe) obesity due to excess calories; F17.210 Nicotine dependence, cigarettes, uncomplicated; E11.65 Type 2 diabetes mellitus with hyperglycemia; R65.10 Systemic inflammatory response syndrome (SIRS) of non-infectious origin without acute organ dysfunction; I42.0 Dilated cardiomyopathy; B95.62 Methicillin resistant Staphylococcus aureus infection as the cause of diseases classified elsewhere; Z23 Encounter for immunization; Z71.3 Dietary counseling and surveillance; Z79.84 Long term (current) use of oral hypoglycemic drugs
CPT/HCPCS: 36415; 36600; 71045; 71275; 80048; 80053; 81001; 82140; 82805; 82962; 83880; 84703; 85025; 85379; 85610; 87040; 87086; 87116; 90732; 93005; 93010; 93306; 94640; 94644; 94760; 96361; 96365; 96366; 96375; 99406; G0378; A9270-GY; J0360; J1650; J1815; J1940; J1956; J2405; J3010; J7040; Q9967

== ENCOUNTER 2018-10-31 20:23 | Inpatient (IN) | payer MEDICAID ==
--- NOTE | 2018-10-31 20:37 | Event Note ---
ED Screening Note ED Screening Note: lmp off yesterday miscarriage in May then pna then dx with chf sent by [facility] who saw her today they want her admitted for cath This initial assessment/diagnostic orders/clinical plan/treatment(s) is/are subject to change based on patients health status, clinical progression and re- assessment by fellow clinical providers in the ED. Further treatment and workup at subsequent clinical providers discretion. Patient/guardian urged not to elope from the ED as their condition may be serious if not clinically assessed and managed. Initial orders include:
--- NOTE | 2018-10-31 21:17 | XRay Report ---
CHEST PA AND LATERAL VIEWS INDICATION: Chest Pain. COMPARISON: 10/20/2018. FINDINGS: Support devices: None. Heart: Within normal limits. Lungs/Pleura: Mild bibasilar opacities appear improved. Lungs are otherwise clear. No pleural abnorma lity. IMPRESSION: 1. ReVia/seen bibasilar opacities have improved. No new findings. Signer Name: Maurice Orozco MD Signed: 10/31/2018 9:12 PM Workstation Name: [id number]
[2018-10-31 21:23] LABS: Hematocrit 38.9 % (30.3-42.9); Hemoglobin 12.6 gm/dl (10.1-14.3); Mean Corpuscular HGB Conc 32 % (30-34); Mean Corpuscular Volume 83 fl (79-97); Platelet Count 317 K/mm3 (140-440); Red Blood Count 4.72 M/mm3 (3.65-5.03); Red Cell Distribution Width 14.7 % (13.2-15.2)
[2018-10-31 21:46] LABS: Alanine Aminotransferase 10 units/L (7-56); Albumin 4.2 g/dL (3.9-5); BUN/Creatinine Ratio 16; Blood Urea Nitrogen 11 mg/dL (7-17); Calcium 10.4 mg/dL (8.4-10.2); Hemolysis Index 5
[2018-10-31 21:59] LABS: Basophils % (Manual) 0 % (0.0-1.8); Total Cells Counted 100
[2018-10-31 22:06] LABS: Anisocytosis Few
[2018-10-31] MEDS ORDERED: HumuLIN R IV ONE (23:48)
[2018-11-01] MEDS ORDERED: MORPHINE IV ONE (00:21)
[2018-11-01] MEDS ORDERED: LOPRESSOR IV ONE (00:21)
[2018-11-01] MEDS ORDERED: NITROSTAT SL PRN (00:45)
[2018-11-01] MEDS ORDERED: ZOFRAN IV PRN (00:46)
[2018-11-01] MEDS ORDERED: PROAIR IH PRN (00:51)
[2018-11-01] MEDS ORDERED: D50W (25GM) Syringe IV PRN (00:53)
--- NOTE | 2018-11-01 00:56 | Emergency Department Report ---
ED Chest Pain HPI - General Chief Complaint: Chest Pain Stated Complaint: CHEST PAIN Time Seen by Provider: 10/31/18 20:34 Source: patient Mode of arrival: Ambulatory Limitations: No Limitations - History of Present Illness Initial Comments: 33-year-old -[place] female presents to the emergency department, sent in by her optometry professor, eventually to get a cardiac catheterization done. This patient is well-known to myself as I am seeing her at least 2 previous times in this emergency department. I admitted her about 2 weeks ago after she had some lingering cough, shortness of breath and chest pains. At that time she was found to have bilateral pneumonia, lower extremity edema and some hypertensive issues. She was seen by cardiology at that time and had an echocardiogram found to have significant left-sided ventricular dysfunction with an EF of 20-25% and what appears to be some dilated cardiomyopathy. During this evaluation, there are notes from cardiology saying that they would most likely attempt a left- sided and right-sided heart catheterization. However the patient was found to have some concurrent nasal MRSA infection and therefore the catheterization was not done at that time. The patient was then discharged one or 2 days later. She went into [facility] cardiology today for outpatient follow-up and told the optometry professor that she still continues to have chest pain and it appears she was sent in for admission and probable heart catheterization. The patient also has a past medical history of diabetes and hypertension. She is a former smoker, having quit one month ago. Severity scale (0 -10): 3 - Related Data Home Medications Medication Instructions Recorded Confirmed Last Taken Metformin HCl [Metformin] 1 tab PO BID 11/04/15 10/20/18 07/09/18 22:00 Lispro Insulin [HumaLOG] 35 unit SQ AC 10/20/18 10/20/18 Unknown Previous Rx's Medication Instructions Recorded Last Taken Type ALBUTEROL Inhaler (OR & NICU) 2 puff IH QID PRN #1 inhalation 09/22/18 Unknown Rx [ProAir HFA Inhaler] Aspirin EC [Halfprin EC] 81 mg PO QDAY #30 tablet 10/23/18 Unknown Rx AtorvaSTATin [Lipitor] 40 mg PO QHS #30 tablet 10/23/18 Unknown Rx Furosemide [Lasix TAB] 40 mg PO QDAY #60 tablet 10/23/18 Unknown Rx Labetalol [Labetalol 100mg TAB] 200 mg PO BID #60 tablet 10/23/18 Unknown Rx Ondansetron [Zofran ODT TAB] 4 mg PO Q8HR PRN #14 tab.rapdis 10/23/18 Unknown Rx Sacubitril/Valsartan [Entresto 24 1 each PO BID #30 tablet 10/23/18 Unknown Rx - 26 mg] Spironolactone [Aldactone] 12.5 mg PO QDAY #30 tablet 10/23/18 Unknown Rx traMADol [Ultram 50 MG tab] 50 mg PO Q4HR PRN #14 tablet 10/23/18 Unknown Rx Allergies Allergy/AdvReac Type Severity Reaction Status Date / Time No Known Allergies Allergy Verified 11/22/14 06:01 Heart Score - HEART Score History: Moderately suspicious EKG: Normal Age: < 45 Risk factors: > 3 risk factors or hx of atherosclerotic disease Troponin: < normal limit HEART Score: 3 - Critical Actions Critical Actions: 0-3 pts:0.9-1.7%risk of adverse cardiac event.Candidate for discharge ED Review of Systems ROS: Stated complaint: CHEST PAIN Other details as noted in HPI Comment: All other systems reviewed and negative Constitutional: denies: chills, fever Eyes: denies: eye pain, vision change ENT: denies: ear pain, throat pain Respiratory: shortness of breath. denies: cough Cardiovascular: chest pain. denies: palpitations Gastrointestinal: denies: abdominal pain, vomiting Genitourinary: denies: dysuria, discharge Musculoskeletal: back pain. denies: arthralgia Skin: denies: rash, lesions Neurological: denies: headache, weakness ED Past Medical Hx - Past Medical History Previous Medical History?: Yes Hx Hypertension: Yes Hx Congestive Heart Failure: No Hx Diabetes: Yes Hx Deep Vein Thrombosis: No Hx Renal Disease: No Hx Sickle Cell Disease: No Hx Seizures: No Hx Asthma: No Hx COPD: No Hx HIV: No Additional medical history: pneumonia - Surgical History Past Surgical History?: Yes Additional Surgical History: x2. d&c. - Social History Smoking Status: Former Smoker Substance Use Type: Alcohol - Medications Home Medications: Home Medications Medication Instructions Recorded Confirmed Last Taken Type Metformin HCl [Metformin] 1 tab PO BID 11/04/15 10/20/18 07/09/18 22:00 History ALBUTEROL Inhaler (OR & NICU) 2 puff IH QID PRN #1 inhalation 09/22/18 10/20/18 Unknown Rx [ProAir HFA Inhaler] Lispro Insulin [HumaLOG] 35 unit SQ AC 10/20/18 10/20/18 Unknown History Aspirin EC [Halfprin EC] 81 mg PO QDAY #30 tablet 10/23/18 Unknown Rx AtorvaSTATin [Lipitor] 40 mg PO QHS #30 tablet 10/23/18 Unknown Rx Furosemide [Lasix TAB] 40 mg PO QDAY #60 tablet 10/23/18 Unknown Rx Labetalol [Labetalol 100mg TAB] 200 mg PO BID #60 tablet 10/23/18 Unknown Rx Ondansetron [Zofran ODT TAB] 4 mg PO Q8HR PRN #14 tab.rapdis 10/23/18 Unknown Rx Sacubitril/Valsartan [Entresto 24 1 each PO BID #30 tablet 10/23/18 Unknown Rx - 26 mg] Spironolactone [Aldactone] 12.5 mg PO QDAY #30 tablet 10/23/18 Unknown Rx traMADol [Ultram 50 MG tab] 50 mg PO Q4HR PRN #14 tablet 10/23/18 Unknown Rx ED Physical Exam - General Limitations: No Limitations - Other Other exam information: GENERAL: The patient is well-developed well-nourished. HENT: Normocephalic. Atraumatic. Patient has moist mucous membranes. EYES: Extraocular motions are intact. NECK: Supple. Trachea is midline. CHEST/LUNGS: Clear to auscultation. There is no respiratory distress noted. HEART/CARDIOVASCULAR: Regular. There is no tachycardia. There is no murmur. ABDOMEN: Abdomen is soft, nontender. Patient has normal bowel sounds. Morbidly obese habitus. SKIN: Skin is warm and dry. NEURO: The patient is awake, alert, and oriented. The patient is cooperative. The patient has no focal neurologic deficits. The patient has normal speech. MUSCULOSKELETAL: There is no tenderness or deformity. There is no evidence of acute injury. ED Course Vital Signs 10/31/18 10/31/18 11/01/18 20:35 23:50 00:35 Temperature 98.5 F 98.3 F Pulse Rate 107 H 99 H 93 H Respiratory 22 18 Rate Blood Pressure 170/95 Blood Pressure 131/84 [Left] O2 Sat by Pulse 95 98 Oximetry - Consultations Consultation #1: At the request of the hospitalist, I spoke with Dr. Brooks from [facility]. It sounds like the heart catheterization, if it goes forward, will occur on Saturday. No heparin is needed with negative troponins. 11/01/18 00:57 NADEEM score - Nadeem Score Age > 65: (0) No Aspirin use within the Past 7 Days: (1) Yes 3 or more CAD Risk Factors: (1) Yes 2 or more Angina events in past 24 hrs: (1) Yes Known CAD with more than 50% Stenosis: (0) No Elevated Cardiac Markers: (0) No ST Deviation Greater than 0.5mm: (0) No NADEEM Score: 3 ED Medical Decision Making - Lab Data Result diagrams: 10/31/18 20:51 10/31/18 20:51 - EKG Data -: EKG Interpreted by Me EKG shows normal: sinus rhythm, axis, intervals, QRS complexes, ST-T waves Rate: normal - EKG Data When compared to previous EKG there are: no significant change Interpretation: unchanged when compared t (10/20/18) - Radiology Data Radiology results: image reviewed interpreted by me: Chest x-ray does not show any acute process. There are no pleural effusions, obvious pneumonia and there is no pneumothorax. - Medical Decision Making This patient was sent in by her optometry professor due to continued chest pain and a recent history of dilated cardiomyopathy and ventricular dysfunction and it appears that she will have a heart catheterization done on Saturday. EKG does not show any signs of ST elevation CO, ischemia or dysrhythmia and is unchanged from previous. Chest x-ray does not show any acute process. Patient's labs thus far have been unremarkable including a negative troponin. However she does have some hyperglycemia but does not appear to be in diabetic ketoacidosis. She has received a dose of IV insulin. She received a dose of pain medication. She will be admitted to the hospital for cardiology consult and was accepted f or admission by the hospitalist, Dr. Rivers. - Differential Diagnosis CO, CHF, Pneumonia, Pericarditis Critical Care Time: No Critical care attestation.: If time is entered above; I have spent that time in minutes in the direct care of this critically ill patient, excluding procedure time. ED Disposition Clinical Impression: Morbid obesity, Hyperglycemia Cardiomyopathy Qualifiers: Cardiomyopathy type: unspecified Qualified Code(s): I42.9 - Cardiomyopathy, unspecified Dyspnea Qualifiers: Dyspnea type: shortness of breath Qualified Code(s): R06.02 - Shortness of breath; R06.00 - Dyspnea, unspecified; R06.01 - Orthopnea Chest pain Qualifiers: Chest pain type: unspecified Qualified Code(s): R07.9 - Chest pain, unspecified Disposition: 09 OP ADMIT IP TO THIS HOSP Is pt being admited?: Yes Condition: Stable Instructions: Chest Pain (ED) Referrals: MARITA WAGONER MD [Primary Care Provider] - 3-5 Days Time of Disposition: 01:01
[2018-11-01] MEDS ORDERED: PROVENTIL IH PRN (01:16)
[2018-11-01] MEDS ORDERED: HEPARIN ONE (01:19)
[2018-11-01] MEDS: HEPARIN SUB-Q SCH ×3 (01:21→22:39)
--- NOTE | 2018-11-01 04:23 | History and Physical Report ---
CHIEF COMPLAINT: Chest pain. HISTORY OF PRESENTING ILLNESS: The patient is a 33-year-old female sent in by her chess instructor after she went to the clinic because of chest pain. The patient was sent in to have cardiac catheterization done following recurring chest pain. The patient said that the pain is sharp in consistency, radiates to the left upper extremity and to the back and associated with shortness of breath. There is no history of nausea or vomiting. No history of diaphoresis. The patient also denied history of cough and fever. PAST MEDICAL HISTORY: Pertinent for hypertension, diabetes mellitus. Also, the patient has past medical history of pneumonia, congestive heart failure as well as cardiomyopathy. PAST SURGICAL HISTORY: Pertinent for x 2 and D and C. FAMILY HISTORY: Reviewed and noncontributory. SOCIAL HISTORY: The patient drinks alcohol. He used to smoke cigarette, but does not smoke currently and does not use illicit drug. MEDICATIONS: The patient's home medications include metformin 1 tablet twice daily, dose unknown; albuterol inhaler 2 puffs by inhalation q.i.d.; lispro insulin 35 units subcutaneous a.c., enteric-coated aspirin 81 mg by mouth daily, Lipitor 40 mg by mouth at bedtime; Lasix 40 mg by mouth daily; labetalol 200 mg by mouth twice daily; and Zofran under the tongue 4 mg every 8 hours as needed for nausea and vomiting. The patient is also on Entresto 24/26 mg 1 by mouth twice daily. The patient is on Aldactone 12.5 mg by mouth daily and tramadol 50 mg by mouth every 4 hours. ALLERGIES: There are no known drug allergies. REVIEW OF SYSTEMS: CONSTITUTIONAL: There is no fever, no chills, no diaphoresis. HEENT: There is no headache or sore throat. CARDIOVASCULAR SYSTEM: Chest pain is present. No orthopnea. RESPIRATORY SYSTEM: Shortness of breath is present. There is no cough. GASTROINTESTINAL SYSTEM: There is no nausea, no vomiting, no abdominal pain, diarrhea or constipation. NEUROLOGICAL SYSTEM: There is no numbness, no dizziness, no altered mental status. MUSCULOSKELETAL SYSTEM: There is no joint pain or swelling. DERMATOLOGICAL SYSTEM: There is no skin rash or itching. GENITOURINARY SYSTEM: There is no dysuria, hematuria, or flank pain. Rest of system review is normal. PHYSICAL EXAMINATION: GENERAL: At the time of exam, the patient was found to be alert, oriented x 3 and in mild distress due to chest pain. VITAL SIGNS: At the initial time of presentation showed temperature of 98.5 degrees Fahrenheit, pulse of 107, respirations 22, blood pressure 170/95, O2 sat of 95% on room air. HEENT: Showed pupils to be equal, round, reactive to light and accommodation. Extraocular muscles are intact. NECK: Supple with no JVD or carotid bruit. CARDIOVASCULAR SYSTEM: Showed normal first and second heart sounds with no gallops or murmurs. RESPIRATORY SYSTEM: Showed good air entry on both sides of the lungs with no abnormal breath sounds. GASTROINTESTINAL SYSTEM: Showed abdomen to be full, soft, nontender with no organomegaly or rigidity. NEUROLOGICAL: Showed no focal deficit. MUSCULOSKELETAL SYSTEM: Showed no joint swelling or tenderness. DERMATOLOGICAL SYSTEM: Showed no skin rash. GENITOURINARY SYSTEM: Showed no costovertebral angle tenderness. PERTINENT LABORATORY DATA AND IMAGING STUDIES: The patient had chest x-ray done that shows bibasilar opacities that is improving from the previous seen. Lab results, the patient had CBC done with elevated white count of 12,100 with normal hemoglobin and normal hematocrit. CBC differential show elevated eosinophil count of 7%. The patient's chemistry was unremarkable, except for increased blood glucose level of 341 and slightly elevated calcium level of 10.4. DIAGNOSIS: Chest pain. PLAN OF CARE: 1. The patient will be admitted to telemetry. 2. The patient will have cardiac enzymes checked serially every 6 hours x 2 levels. 3. The patient will be on nitro paste 1 inch to anterior chest wall q.i.d. and also the patient will be on Nitrostat 0.4 mg sublingual every 5 minutes as needed for breakthrough chest pain. 4. The patient will be on IV morphine 2 mg every 3 hours as needed for pain and IV Zofran 4 mg every 8 hours as needed for nausea and vomiting. 5. The patient will continue Cardiology consult with Dr. Reese as requested by the Emergency Room physician. 6. The patient will be on Tylenol 650 mg by mouth every 4 hours for fever and headache and will be on aspirin 325 mg by mouth daily. 7. The patient will be on her home medication as shown in the medication reconciliation section. 8. The patient will be on Accu-Chek before meals and at bedtime, followed by low-dose sliding scale using regular insulin coverage. 9. The patient will be on oxygen by nasal cannula at 2 liters per minute. 10. The patient's further decision for cardiac catheterization will be made by the chess instructor. JOB# [id number] OCN/NTS
[2018-11-01 04:48] LABS: Bilirubin,Urine NEG (Negative); Blood,Urine LG (Negative); Color,Urine Yellow (Yellow); Mucus,Urine FEW /HPF; Protein,Urine <15 mg/dL mg/dL (Negative); Urobilinogen,Urine < 2.0 mg/dL (<2.0)
[2018-11-01] MEDS: LASIX PO SCH (05:29)
[2018-11-01 06:16] LABS: Creatine Kinase MB 2.4 ng/mL (0.0-4.0)
[2018-11-01] MEDS: NITRO-BID 2% TP SCH ×4 (06:25→18:23)
--- NOTE | 2018-11-01 07:54 | Consultation ---
History of Present Illness Consult date: 11/01/18 Consult reason: chest pain History of present illness: 33-year-old -[place] female presents to the emergency department, sent in by by me from the office. The patient presented to my office yesterday. The patient was recently seen in the office about 2 weeks ago after she had some lingering cough, shortness of breath and chest pains. At that time she was found to have bilateral pneumonia, lower extremity edema and some hypertensive issues. She was seen by cardiology at that time and had an echocardiogram found to have significant left-sided ventricular dysfunction with an EF of 20-25% and what appears to be some dilated cardiomyopathy. The patient was then discharged one or 2 days later with plan for follow up outpatient and outpatient cardiac cath. She went into [facility] cardiology yesterday for outpatient follow-up and told me that she was having active chest pain. Past History Past Medical History: diabetes, hypertension Past Surgical History: No surgical history Social history: smoking. denies: alcohol abuse, prescription drug abuse, IV drug use Family history: no significant family history Medications and Allergies Allergies Allergy/AdvReac Type Severity Reaction Status Date / Time No Known Allergies Allergy Verified 11/22/14 06:01 Home Medications Medication Instructions Recorded Confirmed Last Taken Type Metformin HCl [Metformin] 1 tab PO BID 11/04/15 11/01/18 07/09/18 22:00 History ALBUTEROL Inhaler (OR & NICU) 2 puff IH QID PRN #1 inhalation 09/22/18 11/01/18 Unknown Rx [ProAir HFA Inhaler] Lispro Insulin [HumaLOG] 35 unit SQ AC 10/20/18 11/01/18 Unknown History Aspirin EC [Halfprin EC] 81 mg PO QDAY #30 tablet 10/23/18 11/01/18 Unknown Rx AtorvaSTATin [Lipitor] 40 mg PO QHS #30 tablet 10/23/18 11/01/18 Unknown Rx Furosemide [Lasix TAB] 40 mg PO QDAY #60 tablet 10/23/18 11/01/18 Unknown Rx Labetalol [Labetalol 100mg TAB] 200 mg PO BID #60 tablet 10/23/18 11/01/18 Unknown Rx Ondansetron [Zofran ODT TAB] 4 mg PO Q8HR PRN #14 tab.rapdis 10/23/18 11/01/18 Unknown Rx Sacubitril/Valsartan [Entresto 24 1 each PO BID #30 tablet 10/23/18 11/01/18 Unknown Rx - 26 mg] Spironolactone [Aldactone] 12.5 mg PO QDAY #30 tablet 10/23/18 11/01/18 Unknown Rx traMADol [Ultram 50 MG tab] 50 mg PO Q4HR PRN #14 tablet 10/23/18 11/01/18 Unknown Rx Active Meds: Active Medications Acetaminophen (Tylenol) 650 mg PO Q4H PRN PRN Reason: Headache Albuterol (Proventil) 2.5 mg IH QIDRT PRN PRN Reason: Shortness Of Breath Aspirin (Aspirin) 325 mg PO QDAY [facility] Atorvastatin Calcium (Lipitor) 40 mg PO QHS [facility] Dextrose (D50w (25gm) Syringe) 50 ml IV PRN PRN PRN Reason: Hypoglycemia Furosemide (Lasix) 40 mg PO DAILY@0600 [facility] Last Admin: 11/01/18 05:29 Dose: 40 mg Documented by: Heparin Sodium (Porcine) (Heparin) 5,000 unit SUB-Q Q12HR [facility] Last Admin: 11/01/18 01:21 Dose: 5,000 unit Documented by: Insulin Human Regular (Humulin R) 0 units SUB-Q AC [facility]; Protocol Insulin Human Regular (Humulin R) 0 units SUB-Q QHS [facility]; Protocol Labetalol HCl (Normodyne) 200 mg PO BID [facility] Morphine Sulfate (Morphine) 2 mg IV Q3H PRN PRN Reason: Pain, Moderate (4-6) Nitroglycerin (Nitro-Bid 2%) 1 inch TP QIDNTG [facility]; Protocol Last Admin: 11/01/18 06:25 Dose: 1 inch Documented by: Nitroglycerin (Nitrostat) 0.4 mg SL .Q5MIN PRN PRN Reason: Chest Pain Ondansetron HCl (Zofran) 4 mg IV Q8H PRN PRN Reason: Nausea And Vomiting Spironolactone (Aldactone) 12.5 mg PO QDAY [facility] Review of Systems All systems: negative (pertinent positives in HPI) Physical Examination Vital Signs Temp Pulse Resp BP Pulse Ox 98.5 F 107 H 22 170/95 95 10/31/18 20:35 10/31/18 20:35 10/31/18 20:35 10/31/18 20:35 10/31/18 20:35 General appearance: no acute distress HEENT: Positive: PERRL Cardiac: Positive: Reg Rate and Rhythm, S1/S2 Lungs: Positive: clear to auscultation Neuro: Positive: Grossly Intact Abdomen: Positive: Soft, Active Bowel Sounds Extremities: Absent: normal Results 10/31/18 20:51 10/31/18 20:51 Cardiac Enzymes 10/31/18 11/01/18 Range/Units 20:51 05:12 AST 10 (5-40) units/L CK-MB (CK-2) 2.4 (0.0-4.0) ng/mL CBC 10/31/18 Range/Units 20:51 WBC 12.1 H (4.5-11.0) K/mm3 RBC 4.72 (3.65-5.03) M/mm3 Hgb 12.6 (10.1-14.3) gm/dl Hct 38.9 (30.3-42.9) % Plt Count 317 (140-440) K/mm3 Lymph # Epic Interface Analyst Comprehensive Metabolic Panel 10/31/18 Range/Units 20:51 Sodium 145 (137-145) mmol/L Potassium 4.1 (3.6-5.0) mmol/L Chloride 103.1 (98-107) mmol/L Carbon Dioxide 25 (22-30) mmol/L BUN 11 (7-17) mg/dL Creatinine 0.7 (0.7-1.2) mg/dL Glucose 341 H (65-100) mg/dL Calcium 10.4 H (8.4-10.2) mg/dL AST 10 (5-40) units/L ALT 10 (7-56) units/L Alkaline Phosphatase 73 (35-129) units/L Total Protein 7.9 (6.3-8.2) g/dL Albumin 4.2 (3.9-5) g/dL Assessment and Plan Chest pain - troponin negative. Plan for [facility] saturday Dialted cardiomyopathy with EF 20% - contiue medical therapy with BB, entresto, and spironolactone. Maximize medical therapy. Plan for right and left heart cath. HTN - good control. Maximize medical therapy as tolerated DM2 - management per primary. ARB and statin.
[2018-11-01] MEDS: HumuLIN R SUB-Q SCH ×3 (08:49→17:18)
[2018-11-01] MEDS: MORPHINE IV PRN ×3 (09:39→22:05)
[2018-11-01] MEDS ORDERED: ALDACTONE PO SCH (10:00)
[2018-11-01] MEDS ORDERED: ASPIRIN PO SCH (10:00)
[2018-11-01] MEDS ORDERED: NORMODYNE PO SCH ×2 (10:00)
[2018-11-01] MEDS: ALDACTONE PO SCH (11:25)
[2018-11-01] MEDS: ENTRESTO 24 - 26 MG PO SCH ×2 (11:25→22:44)
[2018-11-01] MEDS: COREG PO SCH ×2 (11:25→22:38)
[2018-11-01] MEDS: BABY ASPIRIN PO SCH (11:25)
[2018-11-01 12:47] LABS: Creatine Kinase MB 2.3 ng/mL (0.0-4.0)
--- NOTE | 2018-11-01 14:29 | Progress Note ---
Assessment and Plan Assessment and plan: Patient is a 33 yo woman with a history of recent ex tobacco smoker, IDDM type 2, hypertension and CHF who presents to [facility] ED SOB and recurrent CP. She was discharged from here on 10/23/18 after treatment for pneumonia and new onset Cardiomyopathy, EF was found to be 20%. 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 When she went to see her Motorcycle Mechanic on on 10/31/18, he referred her to ED for recurrent CP and SOB. * 2v CXR Lungs: Mild bibasilar opacities appear improved, no pleural abnormality Chest pain, angina - troponin negative. Plan for [facility] saturday Dilated cardiomyopathy with EF 20% - contiue medical therapy with BB, entresto, and spironolactone. Maximize medical therapy. Plan for right and left heart cath. HTN - good control. Maximize medical therapy as tolerated DM2 - SSI , accuchecks, ARB and statin. Morbid Obesity, bmi 54.2: funeral pre arrangement counselor on weight reduction History Interval history: Patient was seen and examined. Follow-up on current diagnosis Chest pains. No overnight events reported to me. Patient denies any nausea/vomiting or severe headaches. Imaging, nursing note, chart, labs and old chart reviewed. Discussed with patient. Hospitalist Physical - Physical exam Narrative exam: Gen: WDWN, morbid obesity bmi 54.2, NAD, Awake, Alert, Orientated x 3 HEENT: NCAT, EOMI, PERRL, OP Clear Neck: supple, no adenopathy, no thyromegaly, no JVD CVS/Heart: RRR, normal S1S2, pulses present bilaterally Chest/Lungs: bibasilar crackles, Symmetrical chest expansion, good air entry bilaterally GI/Abdomen: soft, NTND, good bowel sounds, no guarding or rebound /Bladder: no suprapubic tenderness, no CVA or paraspinal tenderness Extermity/Skin: no c/c/e, no obvious rash MSK: FROM x 4 Neuro: CN 2-12 grossly intact, no new focal deficits Psych: calm - Constitutional Vitals: Temp Pulse Resp BP Pulse Ox 98.9 F 75 18 130/70 96 11/01/18 11:30 11/01/18 11:30 11/01/18 11:30 11/01/18 11:30 11/01/18 11:30 General appearance: Present: no acute distress Results - Labs CBC & Chem 7: 10/31/18 20:51 10/31/18 20:51 Labs: Laboratory Last Values WBC 12.1 K/mm3 (4.5-11.0) H 10/31/18 20:51 RBC 4.72 M/mm3 (3.65-5.03) 10/31/18 20:51 Hgb 12.6 gm/dl (10.1-14.3) 10/31/18 20:51 Hct 38.9 % (30.3-42.9) 10/31/18 20:51 MCV 83 fl (79-97) 10/31/18 20:51 MCH 27 pg (28-32) L 10/31/18 20:51 MCHC 32 % (30-34) 10/31/18 20:51 RDW 14.7 % (13.2-15.2) 10/31/18 20:51 Plt Count 317 K/mm3 (140-440) 10/31/18 20:51 Lymph # Community Ambassador 10/31/18 20:51 Add Manual Diff Complete 10/31/18 20:51 Total Counted 100 10/31/18 20:51 Seg Neuts % (Manual) 58.0 % (40.0-70.0) 10/31/18 20:51 0 % 10/31/18 20:51 29.0 % (13.4-35.0) 10/31/18 20:51 Reactive Lymphs % (Man) 0 % 10/31/18 20:51 6.0 % (0.0-7.3) 10/31/18 20:51 7.0 % (0.0-4.3) H 10/31/18 20:51 0 % (0.0-1.8) 10/31/18 20:51 0 % 10/31/18 20:51 0 % 10/31/18 20:51 0 % 10/31/18 20:51 0 % 10/31/18 20:51 Nucleated RBC % Not Reportable 10/31/18 20:51 Seg Neutrophils # Man 7.0 K/mm3 (1.8-7.7) 10/31/18 20:51 Band Neutrophils # 0.0 K/mm3 10/31/18 20:51 3.5 K/mm3 (1.2-5.4) 10/31/18 20:51 Abs React Lymphs (Man) 0.0 K/mm3 10/31/18 20:51 0.7 K/mm3 (0.0-0.8) 10/31/18 20:51 0.8 K/mm3 (0.0-0.4) H 10/31/18 20:51 0.0 K/mm3 (0.0-0.1) 10/31/18 20:51 0.0 K/mm3 10/31/18 20:51 0.0 K/mm3 10/31/18 20:51 0.0 K/mm3 10/31/18 20:51 Blast Cells # 0.0 K/mm3 10/31/18 20:51 WBC Morphology Not Reportable 10/31/18 20:51 Hypersegmented Neuts Not Reportable 10/31/18 20:51 Hyposegmented Neuts Not Reportable 10/31/18 20:51 Hypogranular Neuts Not Reportable 10/31/18 20:51 Not Reportable 10/31/18 20:51 Not Reportable 10/31/18 20:51 Not Reportable 10/31/18 20:51 Not Reportable 10/31/18 20:51 Not Reportable 10/31/18 20:51 Not Reportable 10/31/18 20:51 Appears normal 10/31/18 20:51 Not Reportable 10/31/18 20:51 Plt Clumps, EDTA Not Reportable 10/31/18 20:51 Not Reportable 10/31/18 20:51 Not Reportable 10/31/18 20:51 Not Reportable 10/31/18 20:51 Plt Morphology Comment Not Reportable 10/31/18 20:51 RBC Morphology Not Reportable 10/31/18 20:51 Dimorphic RBCs Not Reportable 10/31/18 20:51 Not Reportable 10/31/18 20:51 Not Reportable 10/31/18 20:51 Not Reportable 10/31/18 20:51 Few 10/31/18 20:51 Not Reportable 10/31/18 20:51 Not Reportable 10/31/18 20:51 Not Reportable 10/31/18 20:51 Not Reportable 10/31/18 20:51 Not Reportable 10/31/18 20:51 Not Reportable 10/31/18 20:51 Not Reportable 10/31/18 20:51 Not Reportable 10/31/18 20:51 Not Reportable 10/31/18 20:51 Not Reportable 10/31/18 20:51 Not Reportable 10/31/18 20:51 Not Reportable 10/31/18 20:51 Not Reportable 10/31/18 20:51 Not Reportable 10/31/18 20:51 Not Reportable 10/31/18 20:51 Acanthocytes (Spur) Not Reportable 10/31/18 20:51 Rouleaux Not Reportable 10/31/18 20:51 Not Reportable 10/31/18 20:51 Not Reportable 10/31/18 20:51 Not Reportable 10/31/18 20:51 Not Reportable 10/31/18 20:51 Hem Pathologist Commnt No 10/31/18 20:51 Sodium 145 mmol/L (137-145) 10/31/18 20:51 Potassium 4.1 mmol/L (3.6-5.0) 10/31/18 20:51 Chloride 103.1 mmol/L (98-107) 10/31/18 20:51 Carbon Dioxide 25 mmol/L (22-30) 10/31/18 20:51 21 mmol/L 10/31/18 20:51 BUN 11 mg/dL (7-17) 10/31/18 20:51 0.7 mg/dL (0.7-1.2) 10/31/18 20:51 Estimated GFR > 60 ml/min 10/31/18 20:51 16 % 10/31/18 20:51 Glucose 341 mg/dL (65-100) H 10/31/18 20:51 POC Glucose 239 (70-105) H 11/01/18 11:35 Calcium 10.4 mg/dL (8.4-10.2) H 10/31/18 20:51 0.40 mg/dL (0.1-1.2) 10/31/18 20:51 AST 10 units/L (5-40) 10/31/18 20:51 ALT 10 units/L (7-56) 10/31/18 20:51 73 units/L (35-129) 10/31/18 20:51 242 units/L (30-135) H 11/01/18 12:05 CK-MB (CK-2) 2.3 ng/mL (0.0-4.0) 11/01/18 12:05 CK-MB (CK-2) Rel Index 0.9 (0-4) 11/01/18 12:05 < 0.010 ng/mL (0.00-0.029) 11/01/18 12:05 NT-Pro-B Natriuret Pep 87.03 pg/mL (0-450) 10/31/18 20:51 7.9 g/dL (6.3-8.2) 10/31/18 20:51 4.2 g/dL (3.9-5) 10/31/18 20:51 1.1 % 10/31/18 20:51 Yellow (Yellow) 11/01/18 03:44 Slightly-cloudy (Clear) 11/01/18 03:44 5.0 (5.0-7.0) 11/01/18 03:44 Ur Specific [place] 1.021 (1.003-1.030) 11/01/18 03:44 <15 mg/dl mg/dL (Negative) 11/01/18 03:44 150 mg/dL (Negative) 11/01/18 03:44 Neg mg/dL (Negative) 11/01/18 03:44 Lg (Negative) 11/01/18 03:44 Neg (Negative) 11/01/18 03:44 Neg (Negative) 11/01/18 03:44 < 2.0 mg/dL (<2.0) 11/01/18 03:44 Ur Leukocyte Esterase Neg (Negative) 11/01/18 03:44 3.0 /HPF (0.0-6.0) 11/01/18 03:44 4.0 /HPF (0.0-6.0) 11/01/18 03:44 U Epithel Cells (Auto) 9.0 /HPF (0-13.0) 11/01/18 03:44 Few /HPF 11/01/18 03:44 Active Medications - Current Medications Current Medications: Generic Name Dose Route Start Last Admin Trade Name Freq PRN Reason Stop Dose Admin Acetaminophen 650 mg 11/01/18 00:46 Tylenol PO Q4H PRN Headache Albuterol 2.5 mg 11/01/18 01:16 Proventil IH QIDRT PRN Shortness Of Breath Aspirin 81 mg 11/01/18 10:00 11/01/18 11:25 Baby Aspirin PO 81 mg QDAY [facility] Administration Atorvastatin Calcium 40 mg 11/01/18 22:00 Lipitor PO QHS [facility] Carvedilol 3.125 mg 11/01/18 10:00 11/01/18 11:25 Coreg PO 3.125 mg BID NILAM Administration Dextrose 50 ml 11/01/18 00:53 D50w (25gm) Syringe IV PRN PRN Hypoglycemia Furosemide 40 mg 11/01/18 06:00 11/01/18 05:29 Lasix PO 40 mg DAILY@0600 [facility] Administration Heparin Sodium (Porcine) 5,000 unit 11/01/18 00:45 11/01/18 13:01 Heparin SUB-Q 5,000 unit Q12HR [facility] Administration Insulin Human Regular 0 units 11/01/18 07:30 11/01/18 13:01 Humulin R SUB-Q 2 units AC [facility] Administration Protocol Insulin Human Regular 0 units 11/01/18 22:00 Humulin R SUB-Q QHS [facility] Protocol Morphine Sulfate 2 mg 11/01/18 00:40 11/01/18 09:39 Morphine IV 2 mg Q3H PRN Administration Pain, Moderate (4-6) Nitroglycerin 1 inch 11/01/18 06:00 11/01/18 11:26 Nitro-Bid 2% TP Not Given QIDNTG [facility] Protocol Nitroglycerin 0.4 mg 11/01/18 00:45 Nitrostat SL .Q5MIN PRN Chest Pain Ondansetron HCl 4 mg 11/01/18 00:46 Zofran IV Q8H PRN Nausea And Vomiting Spironolactone 25 mg 11/01/18 10:00 11/01/18 11:25 Aldactone PO 25 mg QDAY [facility] Administration
[2018-11-01] MEDS ORDERED: HumuLIN R SUB-Q SCH (22:00)
--- NOTE | 2018-11-01 23:42 | Progress Note ---
Assessment and Plan Chest pain - troponin negative. Plan for [facility] tomorrow Dialted cardiomyopathy with EF 20% - contiue medical therapy with BB, entresto, and spironolactone. Maximize medical therapy. Plan for right and left heart cath. HTN - good control. Maximize medical therapy as tolerated DM2 - management per primary. ARB and statin. Subjective Date of service: 11/02/18 Interval history: No acute events. Resting comfortably. No chest pain or SOB. Objective Vital Signs Temp Pulse Resp BP BP Pulse Ox 11/01/18 22:38 99 H 140/87 11/01/18 21:16 99 11/01/18 19:10 98.5 F 99 H 16 140/87 93 11/01/18 18:07 97 11/01/18 16:10 98.6 F 90 20 137/80 97 11/01/18 16:00 97 11/01/18 11:30 98.9 F 75 18 130/70 96 11/01/18 10:40 97 11/01/18 08:57 85 11/01/18 07:50 99.1 F 94 H 20 133/80 96 11/01/18 06:25 88 144/84 11/01/18 04:29 98.1 F 84 18 131/85 97 11/01/18 04:09 18 98 11/01/18 03:52 93 H 11/01/18 02:46 97.7 F 89 18 130/85 98 11/01/18 02:20 97 H 29 H 127/64 99 11/01/18 02:10 100 H 32 H 127/64 96 11/01/18 02:00 88 14 127/64 100 11/01/18 01:50 90 24 126/62 100 11/01/18 01:30 89 15 126/62 98 11/01/18 01:00 86 26 H 119/69 98 11/01/18 00:35 93 H 11/01/18 00:30 89 24 125/80 99 11/01/18 00:00 92 H 18 100/66 99 10/31/18 23:50 98.3 F 99 H 18 131/84 98 - Physical Examination HEENT: Positive: PERRL Neuro: Positive: Grossly Intact Abdomen: Positive: Soft, Active Bowel Sounds Extremities: Absent: normal - Labs and Meds Cardiac Enzymes 11/01/18 11/01/18 Range/Units 05:12 12:05 CK-MB (CK-2) 2.4 2.3 (0.0-4.0) ng/mL
[2018-11-02] MEDS: NITRO-BID 2% TP SCH ×3 (05:18→14:27)
[2018-11-02] MEDS: LASIX PO SCH (05:20)
[2018-11-02 05:25] LABS: Hematocrit 37.9 % (30.3-42.9); Hemoglobin 12.5 gm/dl (10.1-14.3); Mean Corpuscular HGB Conc 33 % (30-34); Mean Corpuscular Volume 82 fl (79-97); Platelet Count 267 K/mm3 (140-440); Red Blood Count 4.62 M/mm3 (3.65-5.03); Red Cell Distribution Width 14.2 % (13.2-15.2)
[2018-11-02 05:51] LABS: BUN/Creatinine Ratio 13; Blood Urea Nitrogen 9 mg/dL (7-17); Calcium 9.2 mg/dL (8.4-10.2); Hemolysis Index 1
[2018-11-02] MEDS: HumuLIN R SUB-Q SCH (08:24)
[2018-11-02] MEDS: MORPHINE IV PRN ×3 (09:30→21:31)
[2018-11-02] MEDS: ENTRESTO 24 - 26 MG PO SCH ×2 (10:29→21:32)
[2018-11-02] MEDS: ALDACTONE PO SCH (10:29)
[2018-11-02] MEDS: COREG PO SCH ×2 (10:29→21:32)
[2018-11-02] MEDS: BABY ASPIRIN PO SCH (10:29)
[2018-11-02] MEDS: HEPARIN SUB-Q SCH ×2 (10:29→21:32)
[2018-11-02] MEDS ORDERED: D50W (25GM) Syringe IV PRN (12:07)
[2018-11-02] MEDS: HumaLOG SUB-Q SCH ×2 (13:05→18:34)
--- NOTE | 2018-11-02 14:17 | Progress Note ---
Assessment and Plan Assessment and plan: Patient is a 33 yo woman with a history of recent ex tobacco smoker, IDDM type 2, hypertension and CHF who presents to [facility] ED SOB and recurrent CP. She was discharged from here on 10/23/18 after treatment for pneumonia and new onset Cardiomyopathy, EF was found to be 20%. 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 When she went to see her Distance Learning Administrator on on 10/31/18, he referred her to ED for recurrent CP and SOB. * 2v CXR Lungs: Mild bibasilar opacities appear improved, no pleural abnormality Chest pain, angina - troponin negative. Plan for [facility] saturday Dilated cardiomyopathy with EF 20% - contiue medical therapy with BB, entresto, and spironolactone. Maximize medical therapy. Plan for right and left heart cath. HTN - good control. Maximize medical therapy as tolerated DM2 - SSI , accuchecks, ARB and statin. Morbid Obesity, bmi 54.2: family and marriage counsellor on weight reduction Increased Sliding scale insulin. Npo after midnight so i will not start long acting tonight. History Interval history: Patient was seen and examined. Follow-up on current diagnosis Chest pains. No overnight events reported to me. Patient denies any nausea/vomiting or severe headaches. Imaging, nursing note, chart, labs and old chart reviewed. Discussed with patient. Hospitalist Physical - Physical exam Narrative exam: Gen: WDWN, morbid obesity bmi 54.2, NAD, Awake, Alert, Orientated x 3 HEENT: NCAT, EOMI, PERRL, OP Clear Neck: supple, no adenopathy, no thyromegaly, no JVD CVS/Heart: RRR, normal S1S2, pulses present bilaterally Chest/Lungs: bibasilar crackles, Symmetrical chest expansion, good air entry bilaterally GI/Abdomen: soft, NTND, good bowel sounds, no guarding or rebound /Bladder: no suprapubic tenderness, no CVA or paraspinal tenderness Extermity/Skin: no c/c/e, no obvious rash MSK: FROM x 4 Neuro: CN 2-12 grossly intact, no new focal deficits Psych: calm - Constitutional Vitals: Temp Pulse Resp BP Pulse Ox 98.3 F 88 22 139/69 97 11/02/18 07:56 11/02/18 10:00 08/18/19 09:30 11/02/18 07:56 11/02/18 12:06 General appearance: Present: no acute distress Results - Labs CBC & Chem 7: 11/02/18 05:11 11/02/18 05:11 Labs: Laboratory Last Values WBC 6.7 K/mm3 (4.5-11.0) 11/02/18 05:11 RBC 4.62 M/mm3 (3.65-5.03) 11/02/18 05:11 Hgb 12.5 gm/dl (10.1-14.3) 11/02/18 05:11 Hct 37.9 % (30.3-42.9) 11/02/18 05:11 MCV 82 fl (79-97) 11/02/18 05:11 MCH 27 pg (28-32) L 11/02/18 05:11 MCHC 33 % (30-34) 11/02/18 05:11 RDW 14.2 % (13.2-15.2) 11/02/18 05:11 Plt Count 267 K/mm3 (140-440) 11/02/18 05:11 Lymph # Packer Operator Automatic 10/31/18 20:51 Add Manual Diff Complete 10/31/18 20:51 Total Counted 100 10/31/18 20:51 Seg Neuts % (Manual) 58.0 % (40.0-70.0) 10/31/18 20:51 0 % 10/31/18 20:51 29.0 % (13.4-35.0) 10/31/18 20:51 Reactive Lymphs % (Man) 0 % 10/31/18 20:51 6.0 % (0.0-7.3) 10/31/18 20:51 7.0 % (0.0-4.3) H 10/31/18 20:51 0 % (0.0-1.8) 10/31/18 20:51 0 % 10/31/18 20:51 0 % 10/31/18 20:51 0 % 10/31/18 20:51 0 % 10/31/18 20:51 Nucleated RBC % Not Reportable 10/31/18 20:51 Seg Neutrophils # Man 7.0 K/mm3 (1.8-7.7) 10/31/18 20:51 Band Neutrophils # 0.0 K/mm3 10/31/18 20:51 3.5 K/mm3 (1.2-5.4) 10/31/18 20:51 Abs React Lymphs (Man) 0.0 K/mm3 10/31/18 20:51 0.7 K/mm3 (0.0-0.8) 10/31/18 20:51 0.8 K/mm3 (0.0-0.4) H 10/31/18 20:51 0.0 K/mm3 (0.0-0.1) 10/31/18 20:51 0.0 K/mm3 10/31/18 20:51 0.0 K/mm3 10/31/18 20:51 0.0 K/mm3 10/31/18 20:51 Blast Cells # 0.0 K/mm3 10/31/18 20:51 WBC Morphology Not Reportable 10/31/18 20:51 Hypersegmented Neuts Not Reportable 10/31/18 20:51 Hyposegmented Neuts Not Reportable 10/31/18 20:51 Hypogranular Neuts Not Reportable 10/31/18 20:51 Not Reportable 10/31/18 20:51 Not Reportable 10/31/18 20:51 Not Reportable 10/31/18 20:51 Not Reportable 10/31/18 20:51 Not Reportable 10/31/18 20:51 Not Reportable 10/31/18 20:51 Appears normal 10/31/18 20:51 Not Reportable 10/31/18 20:51 Plt Clumps, EDTA Not Reportable 10/31/18 20:51 Not Reportable 10/31/18 20:51 Not Reportable 10/31/18 20:51 Not Reportable 10/31/18 20:51 Plt Morphology Comment Not Reportable 10/31/18 20:51 RBC Morphology Not Reportable 10/31/18 20:51 Dimorphic RBCs Not Reportable 10/31/18 20:51 Not Reportable 10/31/18 20:51 Not Reportable 10/31/18 20:51 Not Reportable 10/31/18 20:51 Few 10/31/18 20:51 Not Reportable 10/31/18 20:51 Not Reportable 10/31/18 20:51 Not Reportable 10/31/18 20:51 Not Reportable 10/31/18 20:51 Not Reportable 10/31/18 20:51 Not Reportable 10/31/18 20:51 Not Reportable 10/31/18 20:51 Not Reportable 10/31/18 20:51 Not Reportable 10/31/18 20:51 Not Reportable 10/31/18 20:51 Not Reportable 10/31/18 20:51 Not Reportable 10/31/18 20:51 Not Reportable 10/31/18 20:51 Not Reportable 10/31/18 20:51 Not Reportable 10/31/18 20:51 Acanthocytes (Spur) Not Reportable 10/31/18 20:51 Rouleaux Not Reportable 10/31/18 20:51 Not Reportable 10/31/18 20:51 Not Reportable 10/31/18 20:51 Not Reportable 10/31/18 20:51 Not Reportable 10/31/18 20:51 Hem Pathologist Commnt No 10/31/18 20:51 Sodium 136 mmol/L (137-145) L D 11/02/18 05:11 Potassium 4.1 mmol/L (3.6-5.0) 11/02/18 05:11 Chloride 97.6 mmol/L (98-107) L 11/02/18 05:11 Carbon Dioxide 24 mmol/L (22-30) 11/02/18 05:11 19 mmol/L 11/02/18 05:11 BUN 9 mg/dL (7-17) 11/02/18 05:11 0.7 mg/dL (0.7-1.2) 11/02/18 05:11 Estimated GFR > 60 ml/min 11/02/18 05:11 13 % 11/02/18 05:11 Glucose 377 mg/dL (65-100) H 11/02/18 05:11 POC Glucose 400 (70-105) H 11/02/18 12:50 Calcium 9.2 mg/dL (8.4-10.2) 11/02/18 05:11 0.40 mg/dL (0.1-1.2) 10/31/18 20:51 AST 10 units/L (5-40) 10/31/18 20:51 ALT 10 units/L (7-56) 10/31/18 20:51 73 units/L (35-129) 10/31/18 20:51 242 units/L (30-135) H 11/01/18 12:05 CK-MB (CK-2) 2.3 ng/mL (0.0-4.0) 11/01/18 12:05 CK-MB (CK-2) Rel Index 0.9 (0-4) 11/01/18 12:05 < 0.010 ng/mL (0.00-0.029) 11/01/18 12:05 NT-Pro-B Natriuret Pep 87.03 pg/mL (0-450) 10/31/18 20:51 7.9 g/dL (6.3-8.2) 10/31/18 20:51 4.2 g/dL (3.9-5) 10/31/18 20:51 1.1 % 10/31/18 20:51 Yellow (Yellow) 11/01/18 03:44 Slightly-cloudy (Clear) 11/01/18 03:44 5.0 (5.0-7.0) 11/01/18 03:44 Ur Specific [place] 1.021 (1.003-1.030) 11/01/18 03:44 <15 mg/dl mg/dL (Negative) 11/01/18 03:44 150 mg/dL (Negative) 11/01/18 03:44 Neg mg/dL (Negative) 11/01/18 03:44 Lg (Negative) 11/01/18 03:44 Neg (Negative) 11/01/18 03:44 Neg (Negative) 11/01/18 03:44 < 2.0 mg/dL (<2.0) 11/01/18 03:44 Ur Leukocyte Esterase Neg (Negative) 11/01/18 03:44 3.0 /HPF (0.0-6.0) 11/01/18 03:44 4.0 /HPF (0.0-6.0) 11/01/18 03:44 U Epithel Cells (Auto) 9.0 /HPF (0-13.0) 11/01/18 03:44 Few /HPF 11/01/18 03:44 Active Medications - Current Medications Current Medications: Generic Name Dose Route Start Last Admin Trade Name Freq PRN Reason Stop Dose Admin Acetaminophen 650 mg 11/01/18 00:46 Tylenol PO Q4H PRN Headache Albuterol 2.5 mg 11/01/18 01:16 Proventil IH QIDRT PRN Shortness Of Breath Aspirin 81 mg 11/01/18 10:00 11/02/18 10:29 Baby Aspirin PO 81 mg QDAY [facility] Administration Atorvastatin Calcium 40 mg 11/01/18 22:00 11/01/18 22:38 Lipitor PO 40 mg QHS NILAM Administration Carvedilol 3.125 mg 11/01/18 10:00 11/02/18 10:29 Coreg PO 3.125 mg BID [facility] Administration Dextrose 50 ml 11/02/18 12:07 D50w (25gm) Syringe IV PRN PRN Hypoglycemia Furosemide 40 mg 11/01/18 06:00 11/02/18 05:20 Lasix PO 20 mg DAILY@0600 [facility] Administration Heparin Sodium (Porcine) 5,000 unit 11/01/18 00:45 11/02/18 10:29 Heparin SUB-Q 5,000 unit Q12HR [facility] Administration Insulin Human Lispro 0 unit 11/02/18 13:00 11/02/18 13:05 Humalog SUB-Q 10 unit Q6HR [facility] Administration Protocol Morphine Sulfate 2 mg 11/01/18 00:40 11/02/18 09:30 Morphine IV 2 mg Q3H PRN Administration Pain, Moderate (4-6) Nitroglycerin 1 inch 11/01/18 06:00 11/02/18 10:34 Nitro-Bid 2% TP Not Given QIDNTG [facility] Protocol Nitroglycerin 0.4 mg 11/01/18 00:45 Nitrostat SL .Q5MIN PRN Chest Pain Ondansetron HCl 4 mg 11/01/18 00:46 Zofran IV Q8H PRN Nausea And Vomiting Spironolactone 25 mg 11/01/18 10:00 11/02/18 10:29 Aldactone PO 25 mg QDAY [facility] Administration Nutrition/Malnutrition Assess - Dietary Evaluation Nutrition/Malnutrition Findings: Nutrition Notes Start: 11/01/18 15:24 Freq: Status: Active Protocol: Document 11/01/18 15:24 TIMMY (Rec: 11/01/18 15:27 TIMMY [facility]- [email or web address]) Nutrition Notes Need for Assessment generated from: alterations tailor,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 She reports good appetite and that she weighed 420# two yrs ago. Wt loss was intentional and achieved by using healthier cooking methods and eating more fresh vegetables. She just purchased an exercise bike for physical activity. Nutrition Intervention Revisit per MD consult or patient Sign Off request:
[2018-11-03] MEDS: HumaLOG SUB-Q SCH ×4 (04:48→17:47)
[2018-11-03] MEDS: LASIX PO SCH (06:28)
[2018-11-03] MEDS: NITRO-BID 2% TP SCH ×3 (06:31→14:00)
[2018-11-03 09:40] LABS: BUN/Creatinine Ratio 15; Blood Urea Nitrogen 9 mg/dL (7-17); Calcium 9.3 mg/dL (8.4-10.2); Hemolysis Index 3
[2018-11-03 09:51] LABS: INR 0.97 (0.87-1.13)
[2018-11-03] MEDS: BABY ASPIRIN PO SCH (10:00)
[2018-11-03] MEDS: ENTRESTO 24 - 26 MG PO SCH (10:00)
[2018-11-03] MEDS: ALDACTONE PO SCH (10:00)
[2018-11-03] MEDS: COREG PO SCH (10:00)
[2018-11-03] MEDS: HEPARIN SUB-Q SCH (10:01)
--- NOTE | 2018-11-03 10:44 | Progress Note ---
Assessment and Plan Chest pain - troponin negative. Plan for [facility] today Dialted cardiomyopathy with EF 20% - contiue medical therapy with BB, entresto, and spironolactone. Maximize medical therapy. Plan for right and left heart cath. HTN - good control. Maximize medical therapy as tolerated DM2 - management per primary. ARB and statin. Subjective Date of service: 11/03/18 Interval history: No acute events. Resting comfortably. No chest pain or SOB. Objective Vital Signs Temp Pulse Resp BP Pulse Ox 11/03/18 07:55 98.0 F 18 122/81 11/03/18 06:31 83 110/61 11/03/18 04:48 98.7 F 83 20 110/61 99 11/02/18 23:52 98.0 F 95 H 18 121/80 98 11/02/18 22:00 95 H 11/02/18 21:32 49 L 134/71 11/02/18 21:31 20 11/02/18 19:34 98.6 F 49 L 16 134/71 94 11/02/18 16:04 97.5 F L 18 149/88 11/02/18 16:01 20 11/02/18 12:28 97.9 F 18 142/87 11/02/18 12:06 97 - Physical Examination HEENT: Positive: PERRL Neuro: Positive: Grossly Intact Abdomen: Positive: Soft, Active Bowel Sounds Extremities: Absent: normal - Labs and Meds Coagulation 11/03/18 Range/Units 08:59 PT 12.6 (12.2-14.9) Sec. INR 0.97 (0.87-1.13) Comprehensive Metabolic Panel 11/03/18 Range/Units 08:59 Sodium 138 (137-145) mmol/L Potassium 4.3 (3.6-5.0) mmol/L Chloride 99.9 (98-107) mmol/L Carbon Dioxide 27 (22-30) mmol/L BUN 9 (7-17) mg/dL Creatinine 0.6 L (0.7-1.2) mg/dL Glucose 295 H (65-100) mg/dL Calcium 9.3 (8.4-10.2) mg/dL
--- NOTE | 2018-11-03 11:44 | Progress Note ---
Assessment and Plan Assessment and plan: Patient is a 33 yo woman with a history of recent ex tobacco smoker, IDDM type 2, hypertension and CHF who presents to [facility] ED SOB and recurrent CP. She was discharged from here on 10/23/18 after treatment for pneumonia and new onset Cardiomyopathy, EF was found to be 20%. 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 When she went to see her Physical Therapy Teacher on on 10/31/18, he referred her to ED for recurrent CP and SOB. * 2v CXR Lungs: Mild bibasilar opacities appear improved, no pleural abnormality Chest pain, angina - troponin negative. Plan for [facility] saturday Dilated cardiomyopathy with EF 20% - contiue medical therapy with BB, entresto, and spironolactone. Maximize medical therapy. Plan for right and left heart cath. HTN - good control. Maximize medical therapy as tolerated DM2 - SSI , accuchecks, ARB and statin. Morbid Obesity, bmi 54.2: weight loss counselor on weight reduction Increased Sliding scale insulin. Npo after midnight so i did not start long acting tonight. Disposition: continue inpatient medication, [facility] today, if negative d/c home if ok with Cardiology History Interval history: Patient was seen and examined. Follow-up on current diagnosis Chest pains. No overnight events reported to me. Patient denies any nausea/vomiting or severe headaches. Imaging, nursing note, chart, labs and old chart reviewed. Discussed with patient. Hospitalist Physical - Physical exam Narrative exam: Gen: WDWN, morbid obesity bmi 54.2, NAD, Awake, Alert, Orientated x 3 HEENT: NCAT, EOMI, PERRL, OP Clear Neck: supple, no adenopathy, no thyromegaly, no JVD CVS/Heart: RRR, normal S1S2, pulses present bilaterally Chest/Lungs: bibasilar crackles, Symmetrical chest expansion, good air entry bilaterally GI/Abdomen: soft, NTND, good bowel sounds, no guarding or rebound /Bladder: no suprapubic tenderness, no CVA or paraspinal tenderness Extermity/Skin: no c/c/e, no obvious rash MSK: FROM x 4 Neuro: CN 2-12 grossly intact, no new focal deficits Psych: calm - Constitutional Vitals: Temp Pulse Resp BP Pulse Ox 98.0 F 83 18 122/81 99 11/03/18 07:55 11/03/18 06:31 11/03/18 07:55 11/03/18 07:55 11/03/18 11:30 General appearance: Present: no acute distress Results - Labs CBC & Chem 7: 11/02/18 05:11 11/03/18 08:59 Labs: Laboratory Last Values WBC 6.7 K/mm3 (4.5-11.0) 11/02/18 05:11 RBC 4.62 M/mm3 (3.65-5.03) 11/02/18 05:11 Hgb 12.5 gm/dl (10.1-14.3) 11/02/18 05:11 Hct 37.9 % (30.3-42.9) 11/02/18 05:11 MCV 82 fl (79-97) 11/02/18 05:11 MCH 27 pg (28-32) L 11/02/18 05:11 MCHC 33 % (30-34) 11/02/18 05:11 RDW 14.2 % (13.2-15.2) 11/02/18 05:11 Plt Count 267 K/mm3 (140-440) 11/02/18 05:11 Lymph # Car Deliverer 10/31/18 20:51 Add Manual Diff Complete 10/31/18 20:51 Total Counted 100 10/31/18 20:51 Seg Neuts % (Manual) 58.0 % (40.0-70.0) 10/31/18 20:51 0 % 10/31/18 20:51 29.0 % (13.4-35.0) 10/31/18 20:51 Reactive Lymphs % (Man) 0 % 10/31/18 20:51 6.0 % (0.0-7.3) 10/31/18 20:51 7.0 % (0.0-4.3) H 10/31/18 20:51 0 % (0.0-1.8) 10/31/18 20:51 0 % 10/31/18 20:51 0 % 10/31/18 20:51 0 % 10/31/18 20:51 0 % 10/31/18 20:51 Nucleated RBC % Not Reportable 10/31/18 20:51 Seg Neutrophils # Man 7.0 K/mm3 (1.8-7.7) 10/31/18 20:51 Band Neutrophils # 0.0 K/mm3 10/31/18 20:51 3.5 K/mm3 (1.2-5.4) 10/31/18 20:51 Abs React Lymphs (Man) 0.0 K/mm3 10/31/18 20:51 0.7 K/mm3 (0.0-0.8) 10/31/18 20:51 0.8 K/mm3 (0.0-0.4) H 10/31/18 20:51 0.0 K/mm3 (0.0-0.1) 10/31/18 20:51 0.0 K/mm3 10/31/18 20:51 0.0 K/mm3 10/31/18 20:51 0.0 K/mm3 10/31/18 20:51 Blast Cells # 0.0 K/mm3 10/31/18 20:51 WBC Morphology Not Reportable 10/31/18 20:51 Hypersegmented Neuts Not Reportable 10/31/18 20:51 Hyposegmented Neuts Not Reportable 10/31/18 20:51 Hypogranular Neuts Not Reportable 10/31/18 20:51 Not Reportable 10/31/18 20:51 Not Reportable 10/31/18 20:51 Not Reportable 10/31/18 20:51 Not Reportable 10/31/18 20:51 Not Reportable 10/31/18 20:51 Not Reportable 10/31/18 20:51 Appears normal 10/31/18 20:51 Not Reportable 10/31/18 20:51 Plt Clumps, EDTA Not Reportable 10/31/18 20:51 Not Reportable 10/31/18 20:51 Not Reportable 10/31/18 20:51 Not Reportable 10/31/18 20:51 Plt Morphology Comment Not Reportable 10/31/18 20:51 RBC Morphology Not Reportable 10/31/18 20:51 Dimorphic RBCs Not Reportable 10/31/18 20:51 Not Reportable 10/31/18 20:51 Not Reportable 10/31/18 20:51 Not Reportable 10/31/18 20:51 Few 10/31/18 20:51 Not Reportable 10/31/18 20:51 Not Reportable 10/31/18 20:51 Not Reportable 10/31/18 20:51 Not Reportable 10/31/18 20:51 Not Reportable 10/31/18 20:51 Not Reportable 10/31/18 20:51 Not Reportable 10/31/18 20:51 Not Reportable 10/31/18 20:51 Not Reportable 10/31/18 20:51 Not Reportable 10/31/18 20:51 Not Reportable 10/31/18 20:51 Not Reportable 10/31/18 20:51 Not Reportable 10/31/18 20:51 Not Reportable 10/31/18 20:51 Not Reportable 10/31/18 20:51 Acanthocytes (Spur) Not Reportable 10/31/18 20:51 Rouleaux Not Reportable 10/31/18 20:51 Not Reportable 10/31/18 20:51 Not Reportable 10/31/18 20:51 Not Reportable 10/31/18 20:51 Not Reportable 10/31/18 20:51 Hem Pathologist Commnt No 10/31/18 20:51 PT 12.6 Sec. (12.2-14.9) 11/03/18 08:59 INR 0.97 (0.87-1.13) 11/03/18 08:59 Sodium 138 mmol/L (137-145) 11/03/18 08:59 Potassium 4.3 mmol/L (3.6-5.0) 11/03/18 08:59 Chloride 99.9 mmol/L (98-107) 11/03/18 08:59 Carbon Dioxide 27 mmol/L (22-30) 11/03/18 08:59 15 mmol/L 11/03/18 08:59 BUN 9 mg/dL (7-17) 11/03/18 08:59 0.6 mg/dL (0.7-1.2) L 11/03/18 08:59 Estimated GFR > 60 ml/min 11/03/18 08:59 15 % 11/03/18 08:59 Glucose 295 mg/dL (65-100) H 11/03/18 08:59 POC Glucose 274 (70-105) H 11/03/18 10:46 Calcium 9.3 mg/dL (8.4-10.2) 11/03/18 08:59 0.40 mg/dL (0.1-1.2) 10/31/18 20:51 AST 10 units/L (5-40) 10/31/18 20:51 ALT 10 units/L (7-56) 10/31/18 20:51 73 units/L (35-129) 10/31/18 20:51 242 units/L (30-135) H 11/01/18 12:05 CK-MB (CK-2) 2.3 ng/mL (0.0-4.0) 11/01/18 12:05 CK-MB (CK-2) Rel Index 0.9 (0-4) 11/01/18 12:05 < 0.010 ng/mL (0.00-0.029) 11/01/18 12:05 NT-Pro-B Natriuret Pep 87.03 pg/mL (0-450) 10/31/18 20:51 7.9 g/dL (6.3-8.2) 10/31/18 20:51 4.2 g/dL (3.9-5) 10/31/18 20:51 1.1 % 10/31/18 20:51 Yellow (Yellow) 11/01/18 03:44 Slightly-cloudy (Clear) 11/01/18 03:44 5.0 (5.0-7.0) 11/01/18 03:44 Ur Specific [place] 1.021 (1.003-1.030) 11/01/18 03:44 <15 mg/dl mg/dL (Negative) 11/01/18 03:44 150 mg/dL (Negative) 11/01/18 03:44 Neg mg/dL (Negative) 11/01/18 03:44 Lg (Negative) 11/01/18 03:44 Neg (Negative) 11/01/18 03:44 Neg (Negative) 11/01/18 03:44 < 2.0 mg/dL (<2.0) 11/01/18 03:44 Ur Leukocyte Esterase Neg (Negative) 11/01/18 03:44 3.0 /HPF (0.0-6.0) 11/01/18 03:44 4.0 /HPF (0.0-6.0) 11/01/18 03:44 U Epithel Cells (Auto) 9.0 /HPF (0-13.0) 11/01/18 03:44 Few /HPF 11/01/18 03:44 Active Medications - Current Medications Current Medications: Generic Name Dose Route Start Last Admin Trade Name Freq PRN Reason Stop Dose Admin Acetaminophen 650 mg 11/01/18 00:46 Tylenol PO Q4H PRN Headache Albuterol 2.5 mg 11/01/18 01:16 Proventil IH QIDRT PRN Shortness Of Breath Aspirin 81 mg 11/01/18 10:00 11/02/18 10:29 Baby Aspirin PO 81 mg QDAY [facility] Administration Atorvastatin Calcium 40 mg 11/01/18 22:00 11/02/18 21:31 Lipitor PO 40 mg QHS NILAM Administration Carvedilol 3.125 mg 11/01/18 10:00 11/02/18 21:32 Coreg PO 3.125 mg BID NILAM Administration Dextrose 50 ml 11/02/18 12:07 D50w (25gm) Syringe IV PRN PRN Hypoglycemia Furosemide 40 mg 11/01/18 06:00 11/03/18 06:28 Lasix PO 40 mg DAILY@0600 [facility] Administration Heparin Sodium (Porcine) 5,000 unit 11/01/18 00:45 11/02/18 21:32 Heparin SUB-Q 5,000 unit Q12HR NILAM Administration Insulin Human Lispro 0 unit 11/02/18 13:00 11/03/18 06:41 Humalog SUB-Q 6 unit Q6HR [facility] Administration Protocol Morphine Sulfate 2 mg 11/01/18 00:40 11/02/18 21:31 Morphine IV 2 mg Q3H PRN Administration Pain, Moderate (4-6) Nitroglycerin 1 inch 11/01/18 06:00 11/03/18 06:31 Nitro-Bid 2% TP Not Given QIDNTG [facility] Protocol Nitroglycerin 0.4 mg 11/01/18 00:45 Nitrostat SL .Q5MIN PRN Chest Pain Ondansetron HCl 4 mg 11/01/18 00:46 Zofran IV Q8H PRN Nausea And Vomiting Spironolactone 25 mg 11/01/18 10:00 11/02/18 10:29 Aldactone PO 25 mg QDAY NILAM Administration Nutrition/Malnutrition Assess - Dietary Evaluation Nutrition/Malnutrition Findings: Nutrition Notes Start: 11/01/18 15:24 Freq: Status: Active Protocol: Document 11/01/18 15:24 TIMMY (Rec: 11/01/18 15:27 TIMMY [email or web address]) Nutrition Notes 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 She reports good appetite and that she weighed 420# two yrs ago. Wt loss was intentional and achieved by using healthier cooking methods and eating more fresh vegetables. She just purchased an exercise bike for physical activity. Nutrition Intervention Revisit per MD consult or patient Sign Off request:
[2018-11-03] MEDS ORDERED: HALFPRIN EC PO ONE (12:49)
[2018-11-03] MEDS ORDERED: HALFPRIN EC PO SCH (13:00)
[2018-11-03] MEDS ORDERED: HEPARIN/NS 5000 UNIT/500ML(CATH LAB) 1,000 ML IR ONE (13:12)
[2018-11-03] MEDS ORDERED: CALAN ONE (13:13)
[2018-11-03] MEDS ORDERED: XYLOCAINE 2% INFILTRATI ONE (13:13)
[2018-11-03] MEDS ORDERED: HEPARIN 10,000 UNITS/10 ML ONE (13:13)
[2018-11-03] MEDS ORDERED: NITROGLYCERIN SYRINGE 0 ML ONE (13:16)
[2018-11-03] MEDS ORDERED: NACL 0.9% 500 ML 500 ML ONE (13:17)
[2018-11-03] MEDS: SUBLIMAZE ONE ×3 (14:10→14:23)
[2018-11-03] MEDS: VERSED ONE ×2 (14:10→14:23)
--- NOTE | 2018-11-03 15:30 | Discharge Summary ---
Providers - Providers Date of Admission: 11/01/18 00:37 Date of discharge: 11/03/18 Attending physician: DEVEN CORONADO 11/01/18 00:36 Consult to Cardiology [CONS] Routine Consulting Provider: PURNIMA ESCALANTE Reason For Exam: Chest pain, cardiomyopathy [facility] Condition: Stable Hospital course: Patient is a 33 yo woman with a history of recent ex tobacco smoker, IDDM type 2, hypertension and CHF who presents to [facility] ED SOB and recurrent CP. She was discharged from here on 10/23/18 after treatment for pneumonia and new onset Cardiomyopathy, EF was found to be 20%. 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 When she went to see her Entry Driver Operator on on 10/31/18, he referred her to ED for recurrent CP and SOB. * 2v CXR Lungs: Mild bibasilar opacities appear improved, no pleural abnormality Chest pain, angina - troponin negative. RHC and LHC done Dilated cardiomyopathy with EF 20% - contiue medical therapy with BB, entresto, and spironolactone. Maximize medical therapy. Plan for right and left heart cath. HTN - good control. Maximize medical therapy as tolerated, changed labetalol to coreg per Cardiology DM2 - SSI , accuchecks, ARB and statin. Morbid Obesity, bmi 54.2: job counselor on weight reduction Disposition: home per Dr. Hathaway, clean coronaries Disposition: TO HOME OR SELFCARE Time spent for discharge: 34 minutes Core Measure Documentation - Palliative Care Palliative Care/ Comfort Measures: Not Applicable - Core Measures Any of the following diagnoses?: heart failure - VTE Discharge Requirements Deep Vein Thrombosis/Pulmonary Embolism Present on Admission: No Has pt received <5 days of overlap therapy or INR<2.0: No Anticoagulant overlap therapy prescribed at discharge: No Contraindication No Overlap Therapy order at DC: Not Indicated - Heart Failure Discharge Requirements LILIAN/ARB for LVSD if EF <40%: Yes Beta tete at discharge: Yes Exam - Physical Exam Narrative exam: Gen: WDWN, morbid obesity bmi 54.2, NAD, Awake, Alert, Orientated x 3 HEENT: NCAT, EOMI, PERRL, OP Clear Neck: supple, no adenopathy, no thyromegaly, no JVD CVS/Heart: RRR, normal S1S2, pulses present bilaterally Chest/Lungs: bibasilar crackles, Symmetrical chest expansion, good air entry bilaterally GI/Abdomen: soft, NTND, good bowel sounds, no guarding or rebound /Bladder: no suprapubic tenderness, no CVA or paraspinal tenderness Extermity/Skin: no c/c/e, no obvious rash MSK: FROM x 4 Neuro: CN 2-12 grossly intact, no new focal deficits Psych: calm - Constitutional Vitals: Temp Pulse Resp BP Pulse Ox 98.0 F 83 18 122/81 99 11/03/18 07:55 11/03/18 06:31 11/03/18 07:55 11/03/18 07:55 11/03/18 11:30 Plan Activity: other (no strenous activity uncleared by PCP) Diet: low salt, diabetic Special Instructions: record daily weights, record daily BP diary, record blood sugar diary (three times a day with meals, and keep a log book and take to PCP) Follow up with: MARITA WAGONER MD [Primary Care Provider] - 3-5 Days PURNIMA ESCALANTE MD [Staff Physician] - 7 Days Prescriptions: Carvedilol [Coreg] 3.125 mg PO BID #60 tablet
[2018-11-03] MEDS: TYLENOL PO PRN ×2 (15:32→18:44)
--- NOTE | 2018-11-03 15:51 | Cardiac Catherization Report ---
CARDIAC CATHETERIZATION ATTENDING PHYSICIAN: Demetrius Reese MD PROCEDURES: 1. Left heart catheterization. 2. Right heart catheterization. 3. Left ventriculogram via hand injection. INDICATIONS FOR PROCEDURE: The patient presents to the hospital with new onset cardiomyopathy and chest pain. COMPLICATIONS: None. ESTIMATED BLOOD LOSS: Less than 30 mL. ESTIMATED CONTRAST USE: 60 mL. PROCEDURE IN DETAIL: The patient was brought to the cardiac catheterization lab in usual fasting state. A 10 mL of 1% lidocaine were injected around the right common femoral vessels. An 8-Croat[place] sheath was placed in the right common femoral vein via modified Seldinger technique utilizing micropuncture. A 6-[place] sheath was placed in the right common femoral artery utilizing a modified Seldinger technique with micropuncture. Next, the JL4 and JR4 diagnostic catheters were advanced to their respective ostia and angiography was performed in multiple views. The JR catheter was advanced over the wire across the aortic valve into left ventricle. Left ventricular pressures were measured. Pullback pressure was measured across the aortic valve. Next, a [place] catheter was advanced into the right femoral vein and advanced through the right atrium, right ventricle, pulmonary artery, into the pulmonary wedge position. Pulmonary wedge pressure, PA pressure, right ventricular pressure and right atrial pressure was measured. Cardiac output was measured both by Ant and thermodilution. The catheter was then removed. RESULTS: Left main coronary artery is a very short, large-caliber vessel that bifurcates into left anterior descending and left circumflex coronary arteries. There is no significant disease within the left main coronary artery. The left anterior descending coronary artery is a large caliber vessel with no significant disease. The left circumflex coronary artery is a moderate caliber nondominant vessel with no significant disease. The right coronary artery is a large caliber dominant vessel with no significant disease. Aortic pressure measured 128/77, left ventricular pressure measured 128/0, end-diastolic pressure measured 6, left ventriculogram showed an ejection fraction of 20% -25% with global hypokinesis. Right-sided heart pressures: Right atrial pressure measured 15/18 with a mean of 5, right ventricular pressure measured 39/0 mmHg, PA pressure measured 30/0 mmHg with a mean of 17 and pulmonary arterial wedge pressure measured 5 mmHg. Cardiac output via Ant measured 6.61. Cardiac index via Ant measured 2.37. Thermodilution cardiac output measured 7.44. Cardiac index measured by thermodilution measured 2.67. CONCLUSIONS: No significant coronary artery disease in a right dominant system, severe nonischemic cardiomyopathy with ejection fraction 20%. Normal right-sided filling pressures. RECOMMENDATIONS: Continue maximal medical therapy for treatment of nonischemic cardiomyopathy and aggressive risk factor modification. JOB# [id number] MR/LIZET
[2018-11-03 20:25] VITALS: BP 126/60
== END 2018-11-03 21:00 | disposition home or self-care (01) | DRG 287 ==
LOC: ED 20:23 → 4A 11-01 00:37
PROVIDERS: ADMIT Internal Medicine; ATTEND Internal Medicine
PROC: 4A023N8 Measurement of Cardiac Sampling and Pressure, Bilateral, Percutaneous Approach (ICD-10-PCS; principal; 2018-11-03)
PROC: B2111ZZ Fluoroscopy of Multiple Coronary Arteries using Low Osmolar Contrast (ICD-10-PCS; 2018-11-03)
PROC: B2151ZZ Fluoroscopy of Left Heart using Low Osmolar Contrast (ICD-10-PCS; 2018-11-03)
DX: I20.9 Angina pectoris, unspecified (principal); I42.0 Dilated cardiomyopathy; Z68.43 Body mass index [BMI] 50.0-59.9, adult; E66.01 Morbid (severe) obesity due to excess calories; E11.65 Type 2 diabetes mellitus with hyperglycemia; I10 Essential (primary) hypertension; Z87.891 Personal history of nicotine dependence; Z79.84 Long term (current) use of oral hypoglycemic drugs; Z79.4 Long term (current) use of insulin; Z79.51 Long term (current) use of inhaled steroids; Z79.82 Long term (current) use of aspirin; Z71.3 Dietary counseling and surveillance
CPT/HCPCS: 36415; 71046; 80048; 80053; 81001; 82550; 82553; 82962; 83880; 84484; 85007; 85025; 85027; 85610; 87116; 93005; 93010; 93460; 94640; 99406; G0378; A9270-GY; C1760; C1894; J1644; J1815; J2250; J2270; J2405; J3010; J7040; Q9967

== ENCOUNTER 2019-10-26 16:03 | Emergency (ER) | payer MEDICAID ==
--- NOTE | 2019-10-26 17:20 | Emergency Department Report ---
Blank Doc - Documentation Documentation: 34-year-old female that presents with cough, SOB, and subjective fever. This initial assessment/diagnostic orders/clinical plan/treatment(s) is/are subject to change based on patient's health status, clinical progression and re- assessment by fellow clinical providers in the ED. Further treatment and workup at subsequent clinical providers discretion. Patient/guardians urged not to elope from the ED as their condition may be serious if not clinically assessed and managed. Initial orders include: 1- Patient sent to [facility] for further evaluation and treatment 2- CXR
[2019-10-26 17:21] VITALS: BP 184/112
--- NOTE | 2019-10-26 17:56 | XRay Report ---
CHEST 2 VIEWS INDICATION / CLINICAL INFORMATION: cough. COMPARISON: 10/31/2018 FINDINGS: SUPPORT DEVICES: None. HEART / MEDIASTINUM: No significant abnormality. LUNGS / PLEURA: No significant pulmonary or pleural abnormality. No pneumothorax. ADDITIONAL FINDINGS: No significant additional findings. IMPRESSION: 1. No acute findings. Signer Name: Vic Santana MD Signed: 10/26/2019 5:52 PM Workstation Name: [id number]
[2019-10-26 18:16] LABS: Basophils # (Auto) 0.1 K/mm3 (0.0-0.1); Basophils % (Auto) 0.7 % (0.0-1.8); Eosinophils # (Auto) 0.3 K/mm3 (0.0-0.4); Hematocrit 39.8 % (30.3-42.9); Hemoglobin 12.6 gm/dl (10.1-14.3); Lymphocytes # (Auto) 2.7 K/mm3 (1.2-5.4); Lymphocytes % (Auto) 35.4 % (13.4-35.0); Mean Corpuscular HGB Conc 32 % (30-34); Mean Corpuscular Volume 82 fl (79-97); Monocytes # (Auto) 0.6 K/mm3 (0.0-0.8); Monocytes % (Auto) 7.2 % (0.0-7.3); Platelet Count 281 K/mm3 (140-440); Red Blood Count 4.83 M/mm3 (3.65-5.03); Red Cell Distribution Width 14.9 % (13.2-15.2)
[2019-10-26 18:34] LABS: Alanine Aminotransferase 10 units/L (7-56); Albumin 3.8 g/dL (3.9-5); Blood Urea Nitrogen 10 mg/dL (7-17); Calcium 9.1 mg/dL (8.4-10.2); Hemolysis Index 3
[2019-10-26] MEDS ORDERED: ALBUTEROL 2.5 MG/3 ML NEBU IH ONE (18:41)
[2019-10-26] MEDS ORDERED: predniSONE 20 MG TAB PO ONE (18:41)
--- NOTE | 2019-10-26 18:41 | Emergency Department Report ---
Minor Respiratory - HPI Chief Complaint: Upper Respiratory Infection Stated Complaint: SERINA Time Seen by Provider: 10/26/19 17:19 Duration: 3 Days Pain Location: Chest Severity: mild Minor Respiratory: Yes Able to Tolerate Fluids, Yes Shortness of Breath, No Rhinorrhea, No Sore Throat, No Ear Pain, No Cough, No Sick Contacts, No Hemoptysis, No Chest Pain, No Fever Other History: Patient is a 34-year-old -[place] female that comes to [facility] ER with shortness of breath. She has no fever or chills. She has no cough. She does have a history of bronchitis. She is a smoker. Patient is morbidly obese and diabetic. She has no polyuria polydipsia or polyphagia. She has no abdominal pain. She is ambulatory and nontoxic. Patient concerned that she has Cobin. However, given the patient's extensive medical history she is received a cardiac work-up. ED Review of Systems ROS: Stated complaint: SERINA Other details as noted in HPI Comment: All other systems reviewed and negative ED Past Medical Hx - Past Medical History Previous Medical History?: Yes Hx Hypertension: Yes Hx Congestive Heart Failure: Yes Hx Diabetes: Yes Hx Deep Vein Thrombosis: No Hx Renal Disease: No Hx Sickle Cell Disease: No Hx Seizures: No Hx Asthma: No Hx COPD: No Hx HIV: No Additional medical history: pneumonia - Surgical History Past Surgical History?: Yes Additional Surgical History: x2. d&c. - Family History Family history: no significant - Social History Smoking Status: Never Smoker Substance Use Type: None - Medications Home Medications: Home Medications Medication Instructions Recorded Confirmed Last Taken Type Albuterol Mdi (or & Nicu Only) 2 puff IH QID PRN #1 inhalation 09/22/18 11/01/18 Unknown Rx [ProAir HFA Inhaler] Lispro Insulin [HumaLOG] 35 unit SQ AC 10/20/18 11/01/18 Unknown History Aspirin EC [Halfprin EC] 81 mg PO QDAY #30 tablet 10/23/18 11/01/18 Unknown Rx AtorvaSTATin [Lipitor] 40 mg PO QHS #30 tablet 10/23/18 11/01/18 Unknown Rx Furosemide [Lasix TAB] 40 mg PO QDAY #60 tablet 10/23/18 11/01/18 Unknown Rx Ondansetron [Zofran ODT TAB] 4 mg PO Q8HR PRN #14 tab.rapdis 10/23/18 11/01/18 Unknown Rx Sacubitril/Valsartan [Entresto 24 1 each PO BID #30 tablet 10/23/18 11/01/18 Unknown Rx - 26 mg] Spironolactone [Aldactone] 12.5 mg PO QDAY #30 tablet 10/23/18 11/01/18 Unknown Rx carvediloL [Coreg] 3.125 mg PO BID #60 tablet 11/03/18 Unknown Rx Azithromycin [Zithromax Z-AQUILES] 250 mg PO DAILY #6 tablet 10/26/19 Unknown Rx methylPREDNISolone [Medrol 4MG 4 mg PO DAILY #1 tab.ds.pk 10/26/19 Unknown Rx DOSEPAK (21 tabs)] Minor Respiratory Exam - Exam General: Vital signs noted. No distress. Alert and acting appropriately. HEENT: Yes Moist Mucous Membranes, No Pharyngeal Erythema, No Pharyngeal Exudates, No Rhinorrhea, No Conjuctival Injection, No Frontal Tenderness, No Maxillary Tenderness Ear: Neither TM Bulge, Neither TM Erythema, Neither EAC Pain, Neither EAC Discharge Neck: Yes Supple, No Adenopathy Lungs: Yes Good Air Exchange, Yes Wheezes, No Ronchi, No Stridor, No Cough, No Labored Respirations, No Retractions, No Use of Accessory Muscles, No Other Abnormal Lung Sounds Heart: Yes Regular, No Murmur Abdomen: Yes Normal Bowel Sounds, No Tenderness, No Peritoneal Signs Skin: No Rash, No Edema Neurologic: Alert and oriented, no deficits. Musculoskeletal: Unremarkable. ED Course Vital Signs 10/26/19 17:19 Temperature 98.6 F Pulse Rate 102 H Respiratory 18 Rate Blood Pressure 184/112 O2 Sat by Pulse 97 Oximetry - Reevaluation(s) Reevaluation #1: 10/26/19 18:43 HR 90 ED Medical Decision Making - Lab Data Result diagrams: 10/26/19 18:02 10/26/19 17:51 - EKG Data Rate: normal - EKG Data When compared to previous EKG there are: no significant change Interpretation: no acute changes - Radiology Data Radiology results: report reviewed, image reviewed nap - Medical Decision Making ef normal last week at md per pt Lab Results 10/26/19 10/26/19 Range/Units 17:51 18:02 WBC 7.7 (4.5-11.0) K/mm3 RBC 4.83 (3.65-5.03) M/mm3 Hgb 12.6 (10.1-14.3) gm/dl Hct 39.8 (30.3-42.9) % MCV 82 (79-97) fl MCH 26 L (28-32) pg MCHC 32 (30-34) % RDW 14.9 (13.2-15.2) % Plt Count 281 (140-440) K/mm3 Lymph % (Auto) 35.4 H (13.4-35.0) % [place] % (Auto) 7.2 (0.0-7.3) % Eos % (Auto) 4.0 (0.0-4.3) % Baso % (Auto) 0.7 (0.0-1.8) % Lymph # 2.7 (1.2-5.4) K/mm3 [place] # 0.6 (0.0-0.8) K/mm3 Eos # 0.3 (0.0-0.4) K/mm3 Baso # 0.1 (0.0-0.1) K/mm3 Seg Neutrophils % 52.7 (40.0-70.0) % Seg Neutrophils # 4.1 (1.8-7.7) K/mm3 Sodium 135 L (137-145) mmol/L Potassium 4.2 (3.6-5.0) mmol/L Chloride 102.0 (98-107) mmol/L Carbon Dioxide 22 (22-30) mmol/L Anion Gap 15 mmol/L BUN 10 (7-17) mg/dL Creatinine 0.7 (0.6-1.2) mg/dL Estimated GFR > 60 ml/min BUN/Creatinine Ratio 14 % Glucose 348 H (65-100) mg/dL Calcium 9.1 (8.4-10.2) mg/dL Total Bilirubin 0.50 (0.1-1.2) mg/dL AST 11 (5-40) units/L ALT 10 (7-56) units/L Alkaline Phosphatase 70 (35-129) units/L Troponin T < 0.010 (0.00-0.029) ng/mL NT-Pro-B Natriuret Pep 162.1 (0-450) pg/mL Total Protein 6.9 (6.3-8.2) g/dL Albumin 3.8 L (3.9-5) g/dL Albumin/Globulin Ratio 1.2 % Vital Signs 10/26/19 17:19 Temperature 98.6 F Pulse Rate 102 H Respiratory 18 Rate Blood Pressure 184/112 O2 Sat by Pulse 97 Oximetry DuoNeb and prednisone in the emergency room. Patient has been instructed about prednisone and her diabetes. She will monitor her diet and blood sugars. She expects that it might go up a bit given her use of prednisone. Wheezing improved with a DuoNeb. Patient has no fever or chills. She is ambulatory and taking p.o. Patient has acute on chronic hypertension she has taken her home medications. She has no chest pain and had a recent cardiac work-up 1 month ago. Twelve-lead EKG is normal. There is no consolidation or infiltrates on chest x- ray. There is no evidence of heart failure. Patient is being discharged home with azithromycin and prednisone. She is to continue her home medications including her albuterol. She is to follow-up with her primary care in 48 hours to make sure she is improving. Patient verbalizes understanding. - Differential Diagnosis RO PNA/CHF/ACS Critical care attestation.: If time is entered above; I have spent that time in minutes in the direct care of this critically ill patient, excluding procedure time. ED Disposition Clinical Impression: Insulin dependent diabetes mellitus, Morbid obesity, Hypertension, Bronchitis Disposition: DC-01 TO HOME OR SELFCARE Is pt being admited?: No Does the pt Need Aspirin: No Condition: Stable Instructions: Acute Bronchitis (ED) Additional Instructions: FOLLOW UP WITH PCP IN 48H TO BE SURE YOU ARE GETTING BETTER MEDS ORDERED DIABETIC DIET HYDRATE WELL WITH WATER COVID TESTING WE DISCUSSED MOTRIN OR TYLENOL FOR PAIN CONTINUE ALL HOME MEDS Prescriptions: methylPREDNISolone [Medrol 4MG DOSEPAK (21 tabs)] 4 mg PO DAILY #1 tab.ds.pk Azithromycin [Zithromax Z-AQUILES] 250 mg PO DAILY #6 tablet Referrals: PRIMARY CARE, [Primary Care Provider] - 3-5 Days Time of Disposition: 18:41
[2019-10-26 18:46] LABS: BUN/Creatinine Ratio 14
== END 2019-10-26 20:10 | disposition home or self-care (01) ==
LOC: ED 16:03
DX: J40 Bronchitis, not specified as acute or chronic (principal); E11.9 Type 2 diabetes mellitus without complications; I50.9 Heart failure, unspecified; I11.0 Hypertensive heart disease with heart failure; E66.01 Morbid (severe) obesity due to excess calories; Z68.42 Body mass index [BMI] 45.0-49.9, adult; Z98.890 Other specified postprocedural states; Z79.2 Long term (current) use of antibiotics; Z79.4 Long term (current) use of insulin; Z79.899 Other long term (current) drug therapy
CPT/HCPCS: 36415; 71046; 80053; 83880; 84484; 85025; 93005; 94640; 99284; J7512

== ENCOUNTER 2020-06-20 12:42 | Inpatient (IN) | payer MEDICAID ==
[2020-06-20] MEDS ORDERED: LACTATED RINGERS 500 ML IV ONE (13:03)
--- NOTE | 2020-06-20 14:40 | Ultrasound Report ---
ULTRASOUND BIOPHYSICAL PROFILE INDICATION: well being. COMPARISON: None available. FINDINGS: Presentation is Breech. No heart tone was detected. IMPRESSION: No cardiac activity was detected. The study was discontinued at this time. Signer Name: Maurice Orozco MD Signed: 06/20/2020 2:36 PM Workstation Name: [email or web address]
[2020-06-20] MEDS ORDERED: ceFAZolin/Water 2 GM/20 ML 2 GM/20 ML SYRINGE IV NR (15:00)
[2020-06-20] MEDS ORDERED: OXYTOCIN DRIP 30 UNITS/500 ML BAG IV SCH ×2 (15:00→20:13)
[2020-06-20] MEDS ORDERED: BICITRA ORAL LIQD 30ML PO SCH (15:00)
[2020-06-20] MEDS: LACTATED RINGERS 1,000 ML IV SCH ×2 (15:00→16:26)
[2020-06-20] MEDS ORDERED: FAMOTIDINE 20 MG/2 ML INJ IV SCH (15:00)
--- NOTE | 2020-06-20 15:13 | History and Physical Report ---
History of Present Illness Date of examination: 06/20/20 Date of admission: 06/20/2020 Chief complaint: My baby isnt moving History of present illness: Pt is a 34 year old who presents to L&D at 36.4 weeks with EDC 07/14/20 and complaint of absent movement. Pt states that the last time she remembers feeling movement was yesterday morning. She states that she felt nothing last night or this morning, but she did not contact the md. Pt called the office this morning stating that the baby wasnt moving as much as normal and was advised to report to the hospital. Upon arrival at the hospital heart tones were not heard. Ultrasound confirmed that there was no heartbeat. Pt's course is complicated by type 1 diabetes, chronic hypertension and morbid obesity. She had been improving with her diabetic control with her most recent A1C down to 6.7 from it's original level of 18. Pt has been followed by [facility] and was scheduled for rcs on 07/04/20. Past History Past Medical History: asthma, hypertension, diabetes, high cholesterol Past Surgical History: section ( x2) Family/Genetic History: diabetes, hypertension - Obstetrical History Expected Date of Delivery: 07/14/20 Actual Gestation: 36 Week(s) 4 Day(s) : 5 Para: 3 Hx # Term Pregnancies: 3 Spontaneous Abortions: 1 Number of Living Children: 2 #1 Infant Gender: Female Method of Delivery: Vaginal Complications: other (IUFD) Medications and Allergies Allergies Allergy/AdvReac Type Severity Reaction Status Date / Time No Known Allergies Allergy Verified 11/22/14 06:01 Home Medications Medication Instructions Recorded Confirmed Last Taken Type Albuterol Mdi (or & Nicu Only) 2 puff IH QID PRN #1 inhalation 09/22/18 11/01/18 Unknown Rx [ProAir HFA Inhaler] Lispro Insulin [HumaLOG] 35 unit SQ AC 10/20/18 11/01/18 Unknown History Aspirin EC [Halfprin EC] 81 mg PO QDAY #30 tablet 10/23/18 11/01/18 Unknown Rx AtorvaSTATin [Lipitor] 40 mg PO QHS #30 tablet 10/23/18 11/01/18 Unknown Rx Furosemide [Lasix TAB] 40 mg PO QDAY #60 tablet 10/23/18 11/01/18 Unknown Rx Ondansetron [Zofran ODT TAB] 4 mg PO Q8HR PRN #14 tab.rapdis 10/23/18 11/01/18 Unknown Rx Sacubitril/Valsartan [Entresto 24 1 each PO BID #30 tablet 10/23/18 11/01/18 Unknown Rx - 26 mg] Spironolactone [Aldactone] 12.5 mg PO QDAY #30 tablet 10/23/18 11/01/18 Unknown Rx carvediloL [Coreg] 3.125 mg PO BID #60 tablet 11/03/18 Unknown Rx Azithromycin [Zithromax Z-AQUILES] 250 mg PO DAILY #6 tablet 10/26/19 Unknown Rx methylPREDNISolone [Medrol 4MG 4 mg PO DAILY #1 tab.ds.pk 10/26/19 Unknown Rx DOSEPAK (21 tabs)] Active Meds: Active Medications Citric Acid/Sodium Citrate (Bicitra Oral Liqd 30ml) 30 ml PO ONCE NILAM Stop: 06/20/20 18:00 Famotidine (Famotidine 20 Mg/2 Ml Inj) 20 mg IV ONCE NILAM Stop: 06/20/20 20:00 Lactated Ringer's (Lactated Ringers) 1,000 mls @ 2,250 mls/hr IV PREOP NILAM Stop: 06/21/20 15:27 Oxytocin/Sodium Chloride (Pitocin/Ns 30 Unit/500ml) 30 units in 500 mls @ 0 mls/hr IV TITR NILAM; Protocol Cefazolin Sodium (Ancef/Sterile Water 2 Gm/20 Ml) 2 gm in 20 mls @ 80 mls/hr IV PREOP NR; Protocol Cefazolin Sodium 3 gm/ Sodium (Chloride) 100 mls @ 100 mls/30 min IV PREOP NR; Protocol Metoclopramide HCl (Metoclopramide 10 Mg/2 Ml Inj) 10 mg IV ONCE ONE Stop: 06/20/20 14:39 Review of Systems All systems: negative Genitourinary: other (decreased movement) Rectal Exam: deferred - Vital Signs Vital signs: Vital Signs Pulse Pulse Ox 75 74 L 06/20/20 13:11 06/20/20 13:11 Temp Pulse Resp BP Pulse Ox 99.0 F 96 H 149/91 100 06/20/20 13:29 06/20/20 15:05 06/20/20 15:02 06/20/20 15:05 - Physical Exam Breasts: Positive: deferred Cardiovascular: Regular rate, Normal S1, Normal S2 Lungs: Positive: Clear to auscultation, Normal air movement Abdomen: Positive: normal appearance, soft, normal bowel sounds Genitourinary (Female): Positive: normal external genitalia, normal perenium Vulva: both: normal Vagina: Positive: normal moisture Uterus: Positive: normal size, enlarged, normal contour Extremities: Positive: normal Deep Tendon Reflex Grade: Normal +2 - Obstetrical FHR: other FHR comments: Absent Uterine Contraction Pattern: Absent Results All other labs normal. Assessment and Plan IUP at 36.4 weeks with IUFD on ultrasound. Pt is aware of status. Will proceed with repeat at this time. We will not perform tubal ligation at this time. Consents signed and placed on the chart.
--- NOTE | 2020-06-20 15:37 | Anesthesia Consultation ---
Anesthesia Consult and Med Hx Date of service: 06/20/20 - Airway Anesthetic Teeth Evaluation: Good ROM Head & Neck: Adequate Mental/Hyoid Distance: Adequate Mallampati Class: Class II Intubation Access Assessment: Probably Good - Pulmonary Exam CTA: Yes - Cardiac Exam Cardiac Exam: RRR - Pre-Operative Health Status ASA Pre-Surgery Classification: ASA3 Proposed Anesthetic Plan: Spinal - Pulmonary Hx Smoking: Yes Hx Asthma: No COPD: No Hx Pneumonia: No Hx Sleep Apnea: No (Pt denies) - Cardiovascular System Hx Hypertension: Yes - Central Nervous System Hx Seizures: Yes Hx Psychiatric Problems: No - Gastrointestinal Hx Gastroesophageal Reflux Disease: Yes (Occasional) - Endocrine Hx Renal Disease: No Hx End Stage Renal Disease: No Hx Insulin Dependent Diabetes: Yes (FBS 235 @ 1845) Hx Hypothyroidism: No Hx Hyperthyroidism: No - Hematic Hx Anemia: No Hx Sickle Cell Disease: No - Other Systems Hx Alcohol Use: No Hx Cancer: No Hx Obesity: Yes (morbid 5-11, 374#)
--- NOTE | 2020-06-20 15:37 | Anesthesia Day of Surgery ---
Anesthesia Day of Surgery - Day of Surgery Patient Examined: Yes Patient H&P Reviewed: Yes Patient is NPO: Yes
[2020-06-20 15:38] LABS: Basophils # (Auto) 0.1 K/mm3 (0.0-0.1); Basophils % (Auto) 0.7 % (0.0-1.8); Eosinophils # (Auto) 0.1 K/mm3 (0.0-0.4); Eosinophils % (Auto) 1.6 % (0.0-4.3); Hematocrit 32.2 % (30.3-42.9); Hemoglobin 10.9 gm/dl (10.1-14.3); Lymphocytes # (Auto) 2.3 K/mm3 (1.2-5.4); Lymphocytes % (Auto) 25.1 % (13.4-35.0); Mean Corpuscular HGB Conc 34 % (30-34); Mean Corpuscular Volume 81 fl (79-97); Monocytes # (Auto) 0.6 K/mm3 (0.0-0.8); Monocytes % (Auto) 6.7 % (0.0-7.3); Platelet Count 276 K/mm3 (140-440); Red Blood Count 3.98 M/mm3 (3.65-5.03); Red Cell Distribution Width 16.6 % (13.2-15.2)
[2020-06-20] MEDS ORDERED: MIDAZOLAM 5 MG/5 ML INJ MDV IV ONE (15:43)
[2020-06-20] MEDS ORDERED: METOCLOPRAMIDE 10 MG/2 ML INJ IV ONE (16:00)
[2020-06-20 16:02] LABS: Alanine Aminotransferase 13 units/L (7-56); Uric Acid 5.8 mg/dL (3.5-7.6)
[2020-06-20] MEDS ORDERED: ceFAZolin/STERILE WATER 2 GM/20 ML SYRINGE IV ONE (17:00)
[2020-06-20] MEDS ORDERED: SODIUM CHLORIDE 0.9% IRR 1,500 ML BOTTLE IR ONE (17:17)
[2020-06-20] MEDS ORDERED: WATER FOR IRRIG STERILE 1,500 ML BOTTLE IR ONE (17:17)
[2020-06-20] MEDS ORDERED: SODIUM CHLORIDE 0.9% 100 ML ONE (17:28)
[2020-06-20] MEDS ORDERED: KETOROLAC 30 MG/1 ML INJ ONE (17:28)
[2020-06-20] MEDS ORDERED: BUPIVACAINE/PF (0.5%) 5 MG/1 ML 30 ML VIAL INFILTRATI ONE (17:28)
[2020-06-20] MEDS ORDERED: ONDANSETRON 4 MG/2 ML INJ ONE (17:28)
[2020-06-20] MEDS ORDERED: ceFAZolin 1 GM VIAL ONE (17:28)
[2020-06-20] MEDS ORDERED: PHENYLEPHRINE 10 MG/1 ML INJ SDV ONE (17:28)
[2020-06-20] MEDS ORDERED: dexAMETHasone 20 MG/5 ML VIAL ONE (17:28)
--- NOTE | 2020-06-20 17:45 | Progress Note ---
Spinal Anesthesia Block - Spinal Anesthesia Block Start Time: 16:50 Stop Time: 17:05 Performed by:: ELVI SWAN Procedure: L3-4 interspace identified and marked with ultrasound. Sitting, sterile betadine prep/drape, 1% lidocaine skin local, 22G spinal needle at L3-4 x3 attempts, + CSF, - Heme, [1.9 ml 0.5% bupivacaine + 10 mcg dexmedetomidine] injected, drape removed, patient positioned supine with left uterine displacement, and spinal level verified to be adequate prior to surgery.
--- NOTE | 2020-06-20 18:33 | Progress Note ---
Regional Anesthesia Block - Regional Anesthesia Block Start Time: 18:28 Stop Time: 18:31 Performed By:: ELVI SWAN Procedure: U/S guided bilateral tap block performed for post-operative pain requested by Dr. Thomas. H&P & labs reviewed. Procedure explained, questions answered, consent obtained. Patient in the supine position with ekg, blood pressure cuff and pulse ox on and working in PACU. Timeout performed immediately before start of procedure. Probe placed in the mid-axillary line and the external oblique, internal oblique, and transverse abdominus muscles identified. Skin was cleansed with chlorahexadine 0.5% and allowed to dry. A 4" 20 G Horowitz echogenic needle was advanced in plane until the tip was in the fascial plane between the internal oblique and the transverse abdominus. After negative aspiration 35 ml/side of [30 ml 0.5% Bupivacaine], [10 mg dexamethasone], and [40 ml sterile saline] was injected in 5 ml increments with negative aspiration in between. Patient tolerated procedure well. Yvette ALCALA
--- NOTE | 2020-06-20 18:41 | Procedure Note ---
OB Delivery Note - Delivery Date of Delivery: 06/20/20 Surgeon: JAKE HARRISON Estimated blood loss: 300cc - Section Preop diagnosis: repeat , other (IUFD) Postop diagnosis: same (with velamentous insertion of cord) section procedure: repeat low transverse Disposition: PACU Narrative: see op report - Infant A at 1 minute: 0 at 5 minutes: 0 Infant Gender: Female
--- NOTE | 2020-06-20 18:52 | Operative Report ---
Operative Report Operative Report: Preoperative diagnosis: Intrauterine at 36 and 4/ weeks 2. Repeat x2 3. IUFD Postoperative diagnosis: Same with velamentous cord insertion Procedure: Repeat low transverse section Surgeon: Dr. Jaja Thomas EBL: 400 cc Urine output: 400 mL IV fluids: 1300 mL Findings: Nonviable female in the breech presentation with sloughing of skin. Placenta was significant for velamentous cord insertion. Weight 6 lbs. 9 oz. 2963g Otherwise normal pelvic anatomy Specimens: Placenta Complications: None Procedure: The patient was admitted to the OR with IV running and in place. She was properly identified as herself. She was given spinal anesthesia in the OR without difficulty. She was placed in the dorsal supine position with a leftward tilt. A Zuluaga catheter was inserted. She was then prepped and draped in the normal sterile fashion. An Allis test was used to confirm adequate anesthesia. Once confirmed, the incision was made with the scalpel and carried to the underlying fascia using the scalpel and the Bovie. The fascia was incised in the midline and incision was extended bilaterally using the curved Hurley scissors. The fascia was then dissected from the underlying rectus muscles in a series of sharp and blunt dissection using the Hurley scissors. Muscles were in the in the midline sharply using Metzenbaum scissors and the peritoneum was entered into bluntly using the surgeon's fingers. A bladder blade was then placed into the incision to protect the bladder. Following this the bladder flap was created. Hysterotomy incision was then made in the scalpel. Upon uterine entry, the amniotic sac was ruptured for clear fluid. The infant was then delivered without difficulty with the buttocks as the presenting part. She had no respirations and no fht. The cord was clamped and cut and she was handed off the field. The placenta was then delivered and found to have a velamentous cord insertion. The uterus was then exteriorized and cleared of all clots and debris. The hysterotomy incision was then closed in a running locked fashion using 0 Vicryl in 2 layers. The abdomen was then copiously irrigated with warm normal saline. Following this the uterus was replaced into the abdominal cavity. At this point the muscles were reapproximated in the midline using individual sutures of 0 Vicryl. Following this the fascia was closed in a running fashion using 0 Vicryl. Tissue was then copiously irrigated. Retention sutures were placed in the subcutaneous fat tissue Skin was closed in a running fashion using 3-0 Monocryl. The sponge lap needle and instrument counts were correct 2. The patient tolerated the procedure well. She was taken to recovery in stable condition.
[2020-06-20] MEDS ORDERED: MORPHINE 4 MG/1 ML INJ IV PRN (20:13)
[2020-06-20] MEDS ORDERED: LANOLIN/ZINC/DIMETHICONE (LANSINOH) 7 GM TP PRN (20:13)
[2020-06-20] MEDS ORDERED: ONDANSETRON 4 MG/2 ML INJ IV PRN (20:13)
[2020-06-20] MEDS ORDERED: MAGNESIUM HYDROXIDE (MOM) ORAL LIQD UDC PO PRN (20:13)
[2020-06-20] MEDS ORDERED: WITCH HAZEL/ GLYCERIN PAD TP PRN (20:13)
[2020-06-20] MEDS ORDERED: NALOXONE 0.4 MG/1 ML INJ IV PRN (20:13)
[2020-06-20] MEDS ORDERED: D5W/LACTATED RINGERS 1,000 ML IV SCH (20:13)
[2020-06-20] MEDS ORDERED: KETOROLAC 30 MG/1 ML INJ IV PRN (20:13)
[2020-06-20] MEDS: oxyCODONE /ACETAMINOPHEN 5-325MG TAB PO PRN (22:25)
[2020-06-21] MEDS: oxyCODONE /ACETAMINOPHEN 5-325MG TAB PO PRN ×3 (06:28→18:30)
[2020-06-21 07:23] LABS: Hematocrit 34.7 % (30.3-42.9)
[2020-06-21] MEDS: IBUPROFEN 800 MG TAB PO PRN ×2 (10:06→22:22)
[2020-06-21] MEDS: PRENATAL VIT27-FE FUMARATE-FOLIC ACID VIT TAB PO SCH (10:06)
[2020-06-21] MEDS: FERROUS SULFATE 325 MG TAB PO SCH (10:06)
--- NOTE | 2020-06-21 18:04 | Post Anesthesia Evaluation ---
- Post Anesthesia Evaluation Patient Participated: Yes Airway Patent: Yes Stable Respiratory Function: Yes Nausea/Vomiting: No Temp > 96.8F: Yes Pain Manageable: Yes Adequeate Hydration: Yes Anesthesia Complications: No Block Receding Appropriately: Yes
[2020-06-22] MEDS: oxyCODONE /ACETAMINOPHEN 5-325MG TAB PO PRN ×3 (00:03→15:04)
[2020-06-22] MEDS: FERROUS SULFATE 325 MG TAB PO SCH (10:23)
[2020-06-22] MEDS: PRENATAL VIT27-FE FUMARATE-FOLIC ACID VIT TAB PO SCH (10:23)
--- NOTE | 2020-06-22 11:38 | Progress Note ---
Assessment and Plan POD 1 s/p rltcs secondary to IUFD. Pt is doing well. She is coping well with her loss. Will likely plan for for discharge tomorrow. Subjective - Subjective Date of service: 06/21/20 Interval history: Pt is a 34 year old who presents to L&D at 36.4 weeks with EDC 07/14/20 and complaint of absent movement. Pt states that the last time she remembers feeling movement was yesterday morning. She states that she felt nothing last night or this morning, but she did not contact the md. Pt called the office this morning stating that the baby wasnt moving as much as normal and was advised to report to the hospital. Upon arrival at the hospital heart tones were not heard. Ultrasound confirmed that there was no heartbeat. Pt's course is complicated by type 1 diabetes, chronic hypertension and morbid obesity. She had been improving with her diabetic control with her most recent A1C down to 6.7 from it's original level of 18. Pt has been followed by [facility] and was scheduled for rcs on 07/04/20. Patient reports: appetite normal, voiding normally, pain well controlled, ambulating normally [place]: Objective - Vital Signs Latest vital signs: Vital Signs Temp Pulse Resp BP BP Pulse Ox 06/22/20 10:23 156/90 06/22/20 07:57 98.5 F 90 18 156/90 100 06/22/20 01:03 18 06/22/20 00:25 97.3 F L 86 20 132/75 98 06/22/20 00:03 18 06/21/20 23:15 18 06/21/20 22:24 98.7 F 84 18 156/91 100 06/21/20 22:22 18 06/21/20 22:21 84 156/91 06/21/20 19:30 18 06/21/20 17:00 98.3 F 89 18 151/85 99 06/21/20 13:02 98.1 F 92 H 18 155/91 98 Intake and Output 06/21/20 06/22/20 06/22/20 22:59 06:59 14:59 Intake Total 240 240 500 Balance 240 240 500 Intake: IV 500 Right Distal Port Hand 500 Oral 240 240 Other: Total, Intake Amount 240 240 # Voids Void 1 1 - Exam Cardiovascular: Present: Regular rate, Normal S1, Normal S2 Lungs: Present: Clear to auscultation, Normal air movement Abdomen: Present: normal appearance, soft Uterus: Present: normal, firm Extremities: Present: normal Incision: Present: normal, dry, intact - Labs Labs: Abnormal lab results 06/21/20 Range/Units 22:20 POC Glucose 126 H (70-105) mg/dL
--- NOTE | 2020-06-22 14:03 | Progress Note ---
Assessment and Plan POD 2 s/p LTCS for IUFD at 36 weeks. Pt is coping well. Feels well enough to go home on today. Subjective - Subjective Date of service: 06/22/20 Interval history: Pt is a 34 year old who presents to L&D at 36.4 weeks with EDC 07/14/20 and complaint of absent movement. Pt states that the last time she remembers feeling movement was yesterday morning. She states that she felt nothing last night or this morning, but she did not contact the md. Pt called the office this morning stating that the baby wasnt moving as much as normal and was advised to report to the hospital. Upon arrival at the hospital heart tones were not heard. Ultrasound confirmed that there was no heartbeat. Pt's course is complicated by type 1 diabetes, chronic hypertension and morbid obesity. She had been improving with her diabetic control with her most recent A1C down to 6.7 from it's original level of 18. Pt has been followed by [facility] and was scheduled for rcs on 07/04/20. Patient reports: appetite normal, voiding normally, pain well controlled, flatus, ambulating normally : Objective - Vital Signs Latest vital signs: Vital Signs Temp Pulse Resp BP BP Pulse Ox 06/22/20 10:23 156/90 06/22/20 07:57 98.5 F 90 18 156/90 100 06/22/20 01:03 18 06/22/20 00:25 97.3 F L 86 20 132/75 98 06/22/20 00:03 18 06/21/20 23:15 18 06/21/20 22:24 98.7 F 84 18 156/91 100 06/21/20 22:22 18 06/21/20 22:21 84 156/91 06/21/20 19:30 18 06/21/20 17:00 98.3 F 89 18 151/85 99 Intake and Output 06/21/20 06/22/20 06/22/20 22:59 06:59 14:59 Intake Total 240 240 500 Balance 240 240 500 Intake: IV 500 Right Distal Port Hand 500 Oral 240 240 Other: Total, Intake Amount 240 240 # Voids Void 1 1 - Exam Breasts: Present: deferred Cardiovascular: Present: Regular rate, Normal S1, Normal S2 Lungs: Present: Clear to auscultation, Normal air movement Abdomen: Present: normal appearance, soft, normal bowel sounds Vulva: both: normal Uterus: Present: normal, firm Extremities: Present: normal Incision: Present: normal, dry, intact - Labs Labs: Abnormal lab results 06/21/20 06/22/20 Range/Units 22:20 11:56 POC Glucose 126 H 151 H (70-105) mg/dL
--- NOTE | 2020-06-22 14:08 | Discharge Summary ---
Providers - Providers Date of Admission: 06/20/20 15:23 Date of discharge: 06/22/20 Attending physician: JAKE HARRISON Primary care physician: JAKE HARRISON Hospitalization Reason for admission: IUFD Delivery: Procedure: repeat low transverse Incision: normal, dry, intact Other procedures: none Discharge diagnosis: other (IUFD) [place] baby: female Condition at discharge: Good Disposition: DC-01 TO HOME OR SELFCARE Plan - Discharge Medications Prescriptions: Docusate Sodium [Colace] 100 mg PO BID #60 capsule labetaloL [Labetalol 200mg TAB] 200 mg PO BID #60 tablet Ibuprofen [Motrin] 800 mg PO Q8HR PRN #40 tablet PRN Reason: Pain, Moderate (4-6) oxyCODONE /ACETAMINOPHEN [Percocet 5/325] 2 tab PO Q6HR PRN #40 tablet PRN Reason: Pain - Provider Discharge Summary Activity: routine, no sex for 6 weeks, no heavy lifting 4 weeks, no strenuous exercise Diet: routine Instructions: routine Additional instructions: [] Smoking cessation referral if applicable(refer to patient education folder for contact #) [] Refer to [facility] Booklet Call your doctor immediately for: * Fever > 100.5 * Heavy vaginal bleeding ( >1 pad per hour) * Severe persistent headache * Shortness of breath * Reddened, hot, painful area to leg or breast * Drainage or odor from incision. * Keep incision clean and dry at all times and follow doctor's instructions regarding bathing/showering - Follow up plan Follow up: JAKE HARRISON MD [Primary Care Provider] - 14 Days
[2020-06-22 15:41] VITALS: BP 152/96
== END 2020-06-22 15:40 | disposition home or self-care (01) | DRG 765 ==
LOC: TRG 12:42 → APU 12:43 → TRG 15:22 → APU 15:23 → OB 19:40
PROVIDERS: ADMIT Obstetrics & Gynecology; ATTEND Obstetrics & Gynecology
PROC: 10D00Z1 Extraction of Products of Conception, Low, Open Approach (ICD-10-PCS; principal; 2020-06-20)
PROC: 3E0T3BZ Introduction of Anesthetic Agent into Peripheral Nerves and Plexi, Percutaneous Approach (ICD-10-PCS; 2020-06-20)
DX: O36.4XX0 Maternal care for intrauterine death, not applicable or unspecified (principal); O24.92 Unspecified diabetes mellitus in childbirth; O32.1XX0 Maternal care for breech presentation, not applicable or unspecified; O34.211 Maternal care for low transverse scar from previous cesarean delivery; Z3A.36 36 weeks gestation of pregnancy; Z37.1 Single stillbirth; Z20.822 Contact with and (suspected) exposure to COVID-19; O99.52 Diseases of the respiratory system complicating childbirth; O16.4 Unspecified maternal hypertension, complicating childbirth; J45.909 Unspecified asthma, uncomplicated; O99.214 Obesity complicating childbirth; E66.01 Morbid (severe) obesity due to excess calories; O99.334 Smoking (tobacco) complicating childbirth; F17.200 Nicotine dependence, unspecified, uncomplicated; O99.62 Diseases of the digestive system complicating childbirth; K21.9 Gastro-esophageal reflux disease without esophagitis; O43.123 Velamentous insertion of umbilical cord, third trimester
CPT/HCPCS: 36415; 82565; 82962; 83615; 84450; 84460; 84550; 85014; 85018; 85025; 85027; 86850; 86900; 86901; 88307; G0378; J0690; J1100; J1885; J2250; J2270; J2370; J2405; J2765; J3490; J7120; U0003

== ENCOUNTER 2021-05-23 10:50 | Outpatient (CLI) | payer MEDICAID ==
[2021-05-23 11:17] VITALS: BP 134/74
[2021-05-23] MEDS ORDERED: BETAMET ACET/BETAMET NA PH 6 MG/ML INJ 5 ML MDV IM NR (11:30)
== END 2021-05-23 11:50 | disposition home or self-care (01) ==
LOC: TRG 10:50 → APU 10:51 → TRG 11:50
PROVIDERS: ATTEND Obstetrics & Gynecology
DX: Z34.93 Encounter for supervision of normal pregnancy, unspecified, third trimester (principal); Z87.891 Personal history of nicotine dependence; Z3A.34 34 weeks gestation of pregnancy
CPT/HCPCS: 96372; J0702

== ENCOUNTER 2021-05-24 11:50 | Outpatient (CLI) | payer MEDICAID ==
[2021-05-24] MEDS ORDERED: dexAMETHasone 4 MG/ML VIAL IV SCH (12:00)
[2021-05-24] MEDS ORDERED: BETAMET ACET/BETAMET NA PH 6 MG/ML INJ 5 ML MDV IM SCH (13:00)
[2021-05-24 13:21] VITALS: BP 156/91
[2021-05-24] MEDS ORDERED: LACTATED RINGERS 500 ML IV ONE (13:43)
== END 2021-05-24 13:56 | disposition home or self-care (01) ==
LOC: TRG 11:50 → APU 11:51 → TRG 13:56
PROVIDERS: ATTEND Obstetrics & Gynecology
DX: Z34.93 Encounter for supervision of normal pregnancy, unspecified, third trimester (principal); Z3A.34 34 weeks gestation of pregnancy
CPT/HCPCS: 96372; J0702; 59025